=== PATIENT | female | born 1995 | race Caucasian/White ===

== ENCOUNTER 2020-06-06 11:09 | Observation (INO) | payer OTHER, SELFPAY ==
[2020-06-06 11:25] VITALS: BMI 33.5
[2020-06-07] VITALS: BP 116/60; PULSE 105; RESP 18; TEMP 36.6; O2SAT 95
[2020-06-07 08:00] VITALS: BP 116/56; PULSE 91; RESP 18; TEMP 36.8; O2SAT 94
[2020-06-07] MEDS: Albuterol/Iprat 2.5/0.5MG 3 ML AMPUL.NEB INHALE ×2 (08:27→11:41)
--- NOTE | 2020-06-07 09:16 | MHC.CM.PN ---
pt lives alone in apt. she reports that she is independent in her care. she works a job and drives a car. pt has family that lives nearby and can help her if she needs it. this includes transportation at dc. pt denies the need for vna at dc. dc plan is home no svcs. cm to cont. to follow.
--- NOTE | 2020-06-07 09:22 | PM.DS ---
DS: Providers Provider Date of admission: 06/06/20 11:09 Primary care physician: Jose Smallwood MD DS: Diagnosis Discharge Diagnosis (1) Reactive airway disease: Status: Acute DS: Summary Hospital Course Hospital Course: patient was admitted for reactive airway disease. She was treated with IV Solu-Medrol for 24 hours and scheduled updrafts. Fortunately, her wheezing subsided and she will be discharged home with 5 more days of prednisone. She has been given a referral to pulmonary for formal testing. She is to take her albuterol 4 times daily. Time Spent with Patient Time attestation: Total time spent providing and/or coordinating discharge services: Physical Exam Vital Signs and I&O and Narrative: Vital Signs and I&O: Vital Signs Temp 97.9 F 06/07/20 00:00 Pulse 105 H 06/07/20 00:00 Resp 18 06/07/20 00:00 BP 116/60 06/07/20 00:00 Pulse Ox 95 06/07/20 00:00 Intake & Output 06/06/20 06/07/20 06/07/20 18:59 06:59 18:59 Weight 72.7 kg Other: Urine Bathroom Body Mass Index 33.5 Const: General: cooperative and comfortable Resp: Effort & Inspection: normal respiratory effort Auscultation: clear to auscultation bilaterally Cardio: Rate: regular rate GI: Inspection: Yes normal to inspection Palpation (GI): Soft to palpation Skin: General skin exam: no rashes or lesions noted Discharge Plan Discharge Anticipated Discharge Date/Time: 06/07/20 08:54 Patient Disposition: Home, Self-Care Referrals: Jose Smallwood MD [Primary Care Provider] - Nathan Wen MD [Physician] - 1 Month (Reactive airway disease / asthma, needs work up Call for appointment ) Discharge Medications: New prednisone 20 mg tablet 40 mg PO DAILY 5 Days Qty: 10 RF: 0 albuterol sulfate 90 mcg/actuation aerosol powdr breath activated 2 inh inhalation QID PRN (Reason: shortness of breath or wheezing) Qty: 1 RF: 0 Continued diphenhydramine HCl 50 mg Capsule 50 mg PO BEDTIME PRN (Reason: Rash) RF: 0 trazodone 50 mg Tablet 50 mg PO BEDTIME RF: 0 cetirizine [Zyrtec] 10 mg Tablet 10 mg PO DAILY RF: 0 omeprazole 20 mg Capsule,Delayed Release(Dr/Ec) 20 mg PO QAM RF: 0 bupropion HCl 150 mg Tablet Extended Release 24 Hr 150 mg PO QAM RF: 0 fluoxetine 40 mg Capsule 40 mg PO DAILY RF: 0 Discharge Orders: Discharge Order (Routine); Ordered 06/07/20 Ordered By: Shayan Cramer Diet: advance to your usual diet Activity on Discharge: As tolerated Visit Report Forms: Patient Portal Discharge page Care Plan Goals: Take prednisone and follow up with lung doctors Health Concerns: Asthma and allergy Plan of Treatment: 5 more days of prednisone and take albuterol inhaler 4 times daily
[2020-06-07] MEDS: FLUoxetine HCl 20 MG CAPSULE 40 MG PO (09:27)
[2020-06-07] MEDS: 0.9 % Sodium Chloride Flush 3 ML SYRINGE 2 ML IVFLUSH ×2 (09:28)
[2020-06-07] MEDS: buPROPion HCl XL 150 MG TAB.ER.24H PO (09:28)
[2020-06-07] MEDS: Omeprazole 20 MG CAPSULE.DR PO (09:29)
--- NOTE | 2020-06-07 09:51 | MHC.CM.PN ---
Annmarie [birth year] Female 24 DX Asthma exac Lives with Family. She is independent all functional mobility. No HCP ed provided pt declined. DP home no services Family transport.
== END 2020-06-07 11:49 | disposition home or self-care (01) ==
LOC: HO.IMC 06-07 06:02 → HO.S3 06-07 06:46 → HO.IMC 06-07 09:20
PROVIDERS: Admitting Provider Internal Medicine; PCP Internal Medicine; Visit Provider Family Medicine
DX: J45.901 Unspecified asthma with (acute) exacerbation (principal); Z79.899 Other long term (current) drug therapy
CPT/HCPCS: 36415; 71045; 80051; 82565; 82947; 84520; 85025; 94644; 94645; 96365; 96375; 99219; 99291; J2920; J2930; J3475

== ENCOUNTER 2020-12-29 23:36 | Emergency (ER) | payer OTHER, SELFPAY ==
--- NOTE | ~2020-12-29 | US_ITS ---
EXAMINATION: US OBSTETRICAL ULTRASOUND CLINICAL INFORMATION: Confirm intrauterine . Nausea, vomiting, abdominal pain. COMPARISON: None. LMP: 10/26/2020. Gestational age by maternal dates is 9 weeks 2 days. Estimated date of delivery by maternal dates is 08/02/2021. TECHNIQUE: Transabdominal sonographic evaluation of the pelvis. FINDINGS: There is a single intrauterine gestational sac with visible yolk sac, embryo/fetus, and cardiac activity. There is a small subchorionic hemorrhage measuring 0.5 cm. HR: 174 beats per minute. CRL (crown rump length): 1.76 cm (8 weeks 2 days +/- 4 days). CELINE (estimated date of delivery): 08/09/2021 +/- 4 days. MATERNAL ADNEXA: The right maternal ovary is not seen. The left maternal ovary measures 2.4 x 1.7 x 2.4 cm. There is no significant maternal adnexal mass. No maternal pelvic ascites. US/US OB <= 14 weeks fetus IMPRESSION: 1. Single intrauterine gestation with ultrasound gestational age of 8 weeks 2 days +/- 4 days. 2. Estimated date of delivery is 08/09/2021 +/- 4 days. 3. There is likely a tiny subchorionic hemorrhage.
[2020-12-29 23:41] VITALS: BP 110/72; PULSE 98; RESP 16; TEMP 37.2; O2SAT 97; BMI 32.3
[2020-12-30] VITALS: BP 103/63; PULSE 78; RESP 18; O2SAT 97
[2020-12-30] MEDS: ondansetron HCL 4 MG/2 ML VIAL IVPUSH ×2 (00:16→04:52)
[2020-12-30] MEDS: 0.9 % Sodium Chloride 1,000 ML 999 ML IV ×2 (00:17→01:33)
[2020-12-30 00:18] LABS: MANUAL DIFF FLAG NO
[2020-12-30 00:20] LABS: Basophils Percent Auto 0.2 % (0-2); Eosinophils Absolute Auto 0.1 X10*3/uL (0.0-0.4); Eosinophils Percent Auto 0.3 % (0-4); Hematocrit 42.2 % (37-47); Hemoglobin 14.3 g/dl (12.0-16.0); Imm Gran Abs Auto 0.05 X10*3/uL (0.00-0.03); Imm Gran Pct Auto 0.3 % (0.0-0.4); Lymphocytes Absolute Auto 1.5 X10*3/uL (1.2-4.9); Lymphocytes Percent Auto 9.9 % (20-40); Mean Corpuscular HGB Conc 33.9 g/dl (31.0-35.0); Mean Corpuscular Hemoglobin 29.7 pg (27.0-33.0); Mean Corpuscular Volume 87.7 fL (80-98); Mean Platelet Volume 9.7 fL (9.4-12.3); Monocytes Absolute Auto 0.8 X10*3/uL (0.1-1.2); Monocytes Percent Auto 5.3 % (2-11); Platelet Count 329 X10*3/uL (160-400); Red Blood Count 4.81 X10*6/uL (4.20-5.50); Red Cell Distribution Width 12.4 % (11.0-16.0); White Blood Count 15.5 X10*3/uL (4.8-10.8)
--- NOTE | 2020-12-30 00:23 | ED.NAVMDI ---
HPI - Nausea/Vomiting/Diarrhea General Chief complaint: Nausea/Vomiting/Diarrhea Stated complaint: Vomiting/9 weeks Time Seen by Provider: 12/29/20 23:52 Source: patient Mode of arrival: ambulatory History of Present Illness HPI Narrative: 25-year-old female presents at 9 weeks gestation with no prior ultrasounds of this due date is 08/02/2021 and reports nausea and vomiting for 1 week for which she has been prescribed Zofran but has been a.m. unable to tolerate for the past 24-48 hours. Patient is now describing significant burning and cramping in the epigastrium and although she reports presence of blood in the vomitus (this was inspected at the time of the interview and there was no blood present). Otherwise, patient denies fevers, chills, vaginal bleeding or discharge and reports that she is having urinary frequency and she has had couple of episodes of diarrhea that have since resolved. Patient reports a longstanding history of nausea and vomiting and had similar difficulty during her 1st . Related Data Home Medications Medication Instructions Recorded Confirmed bupropion HCl 150 mg PO QAM 06/06/20 06/06/20 cetirizine [Zyrtec] 10 mg PO DAILY 06/06/20 06/06/20 diphenhydramine HCl 50 mg PO BEDTIME PRN 06/06/20 06/06/20 fluoxetine 40 mg PO DAILY 06/06/20 06/06/20 omeprazole 20 mg PO QAM 06/06/20 06/06/20 trazodone 50 mg PO BEDTIME 06/06/20 06/06/20 Previous Rx's Medication Instructions Recorded albuterol sulfate 2 inh INHALATION QID PRN #1 units 06/07/20 prednisone 40 mg PO DAILY 5 Days #10 tab 06/07/20 nitrofurantoin monohyd/m-cryst 100 mg PO Q12H 5 Days #10 cap 12/30/20 [Macrobid] Allergies Allergy/AdvReac Type Severity Reaction Status Date / Time No Known Allergies Allergy Verified 12/29/20 23:47 [No Known Allergies*] Review of Systems Review of Systems: Pertinent positives and negatives as stated in HPI 10 point review of systems is otherwise negative. PMFSH Past Medical History Source: nursing notes reviewed Medical History Asthma GERD (gastroesophageal reflux disease) Social History Social History Alcohol intake: never Smoking Status: Current every day smoker Smoked in Last 30 Days: Yes Use of substances other than those prescribed or required for medical reasons: Yes Substance Use Type: Marijuana Substance Use Frequency: Daily Last Used Substance: Just Prior to Admission Any prior treatment program specific to substance use: No Advance Directives: No service: No Current occupational status: employed Physical Exam Vital Signs: Vital Signs: Last Vital Signs Temp 98.9 F 12/29/20 23:41 Pulse 78 12/30/20 00:00 Resp 18 12/30/20 00:00 BP 103/63 12/30/20 00:00 Pulse Ox 97 12/30/20 00:00 Body Mass Index 32.3 VITAL SIGNS: Reviewed. GENERAL: Well developed, well nourished, in no acute distress. HEAD: Normocephalic/atraumatic, EYES: PERRLA, EOMI NOSE: Nares patent bilateral OROPHARYNX: no oral lesions noted, posterior pharynx clear NECK: Supple, no adenopathy LUNGS: Normal breath sounds. No adventitious sounds or accessory muscle use. SpO2<97> CARDIOVASCULAR: Regular rate and rhythm without noted murmurs ABDOMEN: Soft, tenderness without rebound in epigastrium, non-distended with bowel sounds. NEUROLOGIC: Alert and oriented x 4. Course Course Course Narrative: 25-year-old female with history and clinical presentation consistent with significant hyperemesis leading to increased exacerbation of underlying GERD and suspect abdominal discomfort secondary to repeated episodes of nausea and vomiting. Lower suspicion for intra-abdominal pathology, will confirm IUP and rule out UTI. On review of all investigations presentation is most consistent with cyclical vomiting secondary to cannabis as well as a likely contribution from . Patient was counseled regarding the combination in terms of exacerbating her nausea and vomiting during . She is discharged in stable condition tolerating oral intake and has instructions to follow-up with her exceptional children teacher assistant in the next 2-3 days for re-evaluation and further outpatient management. US IMPRESSION: 1. Single intrauterine gestation with ultrasound gestational age of 8 weeks 2 days +/- 4 days. 2. Estimated date of delivery is 08/09/2021 +/- 4 days. 3. There is likely a tiny subchorionic hemorrhage. MDM - Nausea/Vomiting/Diarrhea Lab Data Result diagrams: 12/30/20 00:15 12/30/20 00:15 Labs: Lab Results 12/30/20 12/30/20 12/30/20 Range/Units 00:15 00:15 00:49 WBC 15.5 H (4.8-10.8) X10*3/uL RBC 4.81 (4.20-5.50) X10*6/uL Hgb 14.3 (12.0-16.0) g/dl Hct 42.2 (37-47) % MCV 87.7 (80-98) fL MCH 29.7 (27.0-33.0) pg MCHC 33.9 (31.0-35.0) g/dl RDW 12.4 (11.0-16.0) % Plt Count 329 (160-400) X10*3/uL MPV 9.7 (9.4-12.3) fL Immature Gran % (Auto) 0.3 (0.0-0.4) % Neut % (Auto) 84.0 H (45-73) % Lymph % (Auto) 9.9 L (20-40) % [place] % (Auto) 5.3 (2-11) % Eos % (Auto) 0.3 (0-4) % Baso % (Auto) 0.2 (0-2) % Lymph # (Auto) 1.5 (1.2-4.9) X10*3/uL [place] # (Auto) 0.8 (0.1-1.2) X10*3/uL Eos # (Auto) 0.1 (0.0-0.4) X10*3/uL Baso # (Auto) 0.0 (0.0-0.2) X10*3/uL Abs Immat Gran (auto) 0.05 H (0.00-0.03) X10*3/uL Absolute Neuts (auto) 13.0 H (2.0-8.3) X10*3/uL Absolute Nucleated RBC 0.000 (0.0-0.012) X10*3/uL Nucleated RBC % (auto) 0.0 (0.0-0.2) /100WBC Sodium 139 (135-145) mmol/L Potassium 3.6 (3.3-5.1) mmol/L Chloride 100 (96-108) mmol/L Carbon Dioxide 21 L (22-29) mmol/L Anion Gap 22 H (12-20) BUN 13 (9-16) mg/dL Creatinine 0.76 (0.5-1.4) mg/dL Estim Creat Clear Calc 98.1 Estimated GFR > 60 Random Glucose 85 (60-115) mg/dL Calcium 10.3 H (8.4-10.2) mg/dL Total Bilirubin 0.6 (0.0-1.0) mg/dL AST 18 (5-31) U/L ALT 17 (0-31) U/L Alkaline Phosphatase 59 (39-117) U/L Total Protein 7.6 (6.5-8.0) g/dL Albumin 4.8 (3.5-5.0) g/dL Beta HCG, Quant 54165 mIU/mL Urine Color DARK YELLOW Urine Appearance CLEAR Urine pH 5.5 (5.0-8.0) Ur Specific [place] >= 1.030 H (1.005-1.025) Urine Protein TRACE (NEG-TRACE) MG/DL Urine Glucose (UA) NEG (NEG) MG/DL Urine Ketones >=80 (NEG) MG/DL Urine Blood NEG (NEG) Urine Nitrite POS H (NEG) Ur Leukocyte Esterase NEG (NEG) Urine RBC 0-2 (0) /HPF Urine WBC 0-2 (0-4) /HPF Ur Squamous Epith Cells 2+ /LPF Urine Bacteria 1+ /LPF Hyaline Casts 0-2 /LPF Urine Mucus 2+ /LPF Urine Opiates Screen (Not Detect) Ur Barbiturates Screen (Not Detect) Ur Phencyclidine Scrn (Not Detect) Ur Amphetamines Screen (Not Detect) U Benzodiazepines Scrn (Not Detect) Urine Cocaine Screen (Not Detect) U Marijuana (THC) Screen (Not Detect) 12/30/20 Range/Units 00:49 WBC (4.8-10.8) X10*3/uL RBC (4.20-5.50) X10*6/uL Hgb (12.0-16.0) g/dl Hct (37-47) % MCV (80-98) fL MCH (27.0-33.0) pg MCHC (31.0-35.0) g/dl RDW (11.0-16.0) % Plt Count (160-400) X10*3/uL MPV (9.4-12.3) fL Immature Gran % (Auto) (0.0-0.4) % Neut % (Auto) (45-73) % Lymph % (Auto) (20-40) % [place] % (Auto) (2-11) % Eos % (Auto) (0-4) % Baso % (Auto) (0-2) % Lymph # (Auto) (1.2-4.9) X10*3/uL [place] # (Auto) (0.1-1.2) X10*3/uL Eos # (Auto) (0.0-0.4) X10*3/uL Baso # (Auto) (0.0-0.2) X10*3/uL Abs Immat Gran (auto) (0.00-0.03) X10*3/uL Absolute Neuts (auto) (2.0-8.3) X10*3/uL Absolute Nucleated RBC (0.0-0.012) X10*3/uL Nucleated RBC % (auto) (0.0-0.2) /100WBC Sodium (135-145) mmol/L Potassium (3.3-5.1) mmol/L Chloride (96-108) mmol/L Carbon Dioxide (22-29) mmol/L Anion Gap (12-20) BUN (9-16) mg/dL Creatinine (0.5-1.4) mg/dL Estim Creat Clear Calc Estimated GFR Random Glucose (60-115) mg/dL Calcium (8.4-10.2) mg/dL Total Bilirubin (0.0-1.0) mg/dL AST (5-31) U/L ALT (0-31) U/L Alkaline Phosphatase (39-117) U/L Total Protein (6.5-8.0) g/dL Albumin (3.5-5.0) g/dL Beta HCG, Quant mIU/mL Urine Color Urine Appearance Urine pH (5.0-8.0) Ur Specific [place] (1.005-1.025) Urine Protein (NEG-TRACE) MG/DL Urine Glucose (UA) (NEG) MG/DL Urine Ketones (NEG) MG/DL Urine Blood (NEG) Urine Nitrite (NEG) Ur Leukocyte Esterase (NEG) Urine RBC (0) /HPF Urine WBC (0-4) /HPF Ur Squamous Epith Cells /LPF Urine Bacteria /LPF Hyaline Casts /LPF Urine Mucus /LPF Urine Opiates Screen Not Detected (Not Detect) Ur Barbiturates Screen Not Detected (Not Detect) Ur Phencyclidine Scrn Not Detected (Not Detect) Ur Amphetamines Screen Not Detected (Not Detect) U Benzodiazepines Scrn POSITIVE H (Not Detect) Urine Cocaine Screen Not Detected (Not Detect) U Marijuana (THC) Screen POSITIVE H (Not Detect) Discharge Plan Discharge Clinical Impression: Cyclical vomiting, Vomiting affecting , Acute UTI Patient Disposition: Home, Self-Care Instructions: (ED), Urinary Tract Infection in (ED), Cyclic Vomiting Syndrome (ED) Additional Instructions: 1. Resume all home medications as prescribed, to include your prescription for Zofran. 2. Follow-up with your exceptional children teacher assistant in the next 2-3 days for re-evaluation. Return to the emergency department for acute worsening of symptoms. Prescriptions: New nitrofurantoin monohyd/m-cryst [Macrobid] 100 mg capsule 100 mg PO Q12H 5 Days Qty: 10 RF: 0 No Action diphenhydramine HCl 50 mg Capsule 50 mg PO BEDTIME PRN (Reason: Rash) RF: 0 trazodone 50 mg Tablet 50 mg PO BEDTIME RF: 0 cetirizine [Zyrtec] 10 mg Tablet 10 mg PO DAILY RF: 0 omeprazole 20 mg Capsule,Delayed Release(Dr/Ec) 20 mg PO QAM RF: 0 bupropion HCl 150 mg Tablet Extended Release 24 Hr 150 mg PO QAM RF: 0 fluoxetine 40 mg Capsule 40 mg PO DAILY RF: 0 prednisone 20 mg tablet 40 mg PO DAILY 5 Days Qty: 10 RF: 0 albuterol sulfate 90 mcg/actuation aerosol powdr breath activated 2 inh inhalation QID PRN (Reason: shortness of breath or wheezing) Qty: 1 RF: 0 Referrals: Deidre Moses [employer]INA [employer] D[employer] MANAGER [Primary Care Provider] - 2 days
[2020-12-30 00:56] LABS: Alanine Aminotransferase 17 U/L (0-31); Albumin Level 4.8 g/dL (3.5-5.0); Alkaline Phosphatase 59 U/L (39-117); Anion Gap 22 (12-20); Aspartate Amino Transferase 18 U/L (5-31); Bilirubin Total 0.6 mg/dL (0.0-1.0); Blood Urea Nitrogen 13 mg/dL (9-16); Calcium 10.3 mg/dL (8.4-10.2); Carbon Dioxide 21 mmol/L (22-29); Chloride 100 mmol/L (96-108); Creatinine Clr Calc Pharmacy 98.1; Estimated Glomerular Filt Rate > 60; Glucose Random 85 mg/dL (60-115); Potassium 3.6 mmol/L (3.3-5.1); Sodium 139 mmol/L (135-145); Total Protein 7.6 g/dL (6.5-8.0)
[2020-12-30 00:58] LABS: Glucose Urine UA NEG (NEG); Leukocyte Esterase Urine NEG (NEG); Nitrite Urine POS (NEG); PH 5.5 (5.0-8.0); Specific Gravity - Urine >= 1.030 (1.005-1.025); UACC Culture Trigger YES; Urine Blood NEG (NEG); Urine Ketones >=80 MG/DL (NEG); Urine Protein TRACE MG/DL (NEG-TRACE)
--- NOTE | 2020-12-30 00:59 | PC.NURSE ---
Pt self inducing vomiting enroute to us.
[2020-12-30 01:00] LABS: Appearance Urine CLEAR; Color Urine DARK YELLOW
[2020-12-30 01:15] LABS: Bacteria Urine 1+ /LPF; Hyaline Casts Urine 0-2 /LPF; Mucus Urine 2+ /LPF; RBC Urine 0-2 /HPF (0); Squamous Epithelial Cell Urine 2+ /LPF; WBC Urine 0-2 /HPF (0-4)
[2020-12-30 01:17] LABS: Amphetamine Screen Urine Not Detected (Not Detect); Barbiturates, Urine Not Detected (Not Detect); Benzodiazepines Screen Urine POSITIVE (Not Detect); Cannabinoid Screen Urine POSITIVE (Not Detect); Cocaine Screen Urine Not Detected (Not Detect); Opiate Screen Urine Not Detected (Not Detect); Phencyclidine Screen Urine Not Detected (Not Detect)
[2020-12-30] MEDS: diphenhydrAMINE HCL 50 MG/ML VIAL 25 MG IVPUSH (01:23)
[2020-12-30] MEDS: Metoclopramide HCl 10 MG/2 ML VIAL IVPUSH (01:24)
[2020-12-30] MEDS: cefTRIAXone sodium 1 GM in 0.9 % Sodium Chloride 50 ML IV (01:38)
--- NOTE | 2020-12-30 01:39 | PC.NURSE ---
PT EDUCATED TO NOT USE MARIJUANA AND BENZOS WHILE PREGANT. PT MEDICATED AND MONTIORING FOR EFFECT.
== END 2020-12-30 05:08 | disposition home or self-care (01) ==
PROVIDERS: Emergency Provider Student in an Organized Health Care Education/Training Program; PCP Nurse Practitioner Family
DX: O21.8 Other vomiting complicating pregnancy (principal); O99.331 Smoking (tobacco) complicating pregnancy, first trimester; Z3A.09 9 weeks gestation of pregnancy; Z71.6 Tobacco abuse counseling; Z79.899 Other long term (current) drug therapy
CPT/HCPCS: 36415; 76801; 80053; 80307; 81001; 81003; 84702; 85025; 87086; 96365; 96375; 99285; J0696; J1200; J2405; J2765

== ENCOUNTER 2021-05-03 16:46 | Emergency (ER) | payer OTHER, SELFPAY ==
[2021-05-03 17:00] VITALS: BP 104/79; PULSE 83; RESP 18; TEMP 37; O2SAT 98; BMI 30.9
[2021-05-03 19:01] LABS: Hematocrit 35.5 % (37-47); Mean Corpuscular HGB Conc 33.8 g/dl (31.0-35.0); Mean Corpuscular Hemoglobin 30.5 pg (27.0-33.0); Mean Corpuscular Volume 90.3 fL (80-98); Platelet Count 227 X10*3/uL (160-400); Red Blood Count 3.93 X10*6/uL (4.20-5.50); Red Cell Distribution Width 12.7 % (11.0-16.0); White Blood Count 12.9 X10*3/uL (4.8-10.8)
[2021-05-03 19:02] LABS: Glucose Urine UA NEG (NEG); Leukocyte Esterase Urine 1+ (NEG); Nitrite Urine NEG (NEG); Urine Blood NEG (NEG); Urine Ketones NEG (NEG); Urine Protein TRACE MG/DL (NEG-TRACE)
[2021-05-03 19:03] LABS: Appearance Urine CLOUDY; Color Urine YELLOW
[2021-05-03 19:11] LABS: Amorphous Sediment Urine 2+ /LPF; Bacteria Urine 1+ /LPF; Mucus Urine 2+ /LPF; RBC Urine 0 /HPF (0); Squamous Epithelial Cell Urine 3+ /LPF
[2021-05-03 19:18] LABS: COVID-19 Test Negative (Negative)
[2021-05-03 19:21] LABS: Amphetamine Screen Urine Not Detected (Not Detect); Barbiturates, Urine Not Detected (Not Detect); Benzodiazepines Screen Urine Not Detected (Not Detect); Cannabinoid Screen Urine POSITIVE (Not Detect); Cocaine Screen Urine Not Detected (Not Detect); Fentanyl, urine POSITIVE (Not Detect); Opiate Screen Urine Not Detected (Not Detect); Phencyclidine Screen Urine Not Detected (Not Detect)
[2021-05-03 19:33] LABS: Anion Gap 12 (12-20); Blood Urea Nitrogen 5 mg/dL (9-16); Carbon Dioxide 25 mmol/L (22-29); Chloride 107 mmol/L (96-108); Creatinine Clr Calc Pharmacy 112.5; Estimated Glomerular Filt Rate > 60; Glucose Random 85 mg/dL (60-115); Potassium 4.5 mmol/L (3.3-5.1); Sodium 139 mmol/L (135-145)
--- NOTE | 2021-05-03 20:51 | ED.PSYCH ---
HPI - Psych General Chief Complaint: Psychiatric Symptoms Stated Complaint: crisis Time Seen by Provider: 05/03/21 17:27 Source: patient Mode of arrival: ambulatory Limitations: no limitations History of Present Illness HPI Narrative: Patient was emergency room complaining of that and depression. Patient is not 27 weeks of gestational age. 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 Patient states that initially she was depressed, had some SI vague thoughts, no plan, states she would never hurt herself. Requesting to be seen by [facility] Related Data Home Medications Medication Instructions Recorded Confirmed bupropion HCl 150 mg 24 hr tablet, 150 mg PO QAM 06/06/20 06/06/20 extended release cetirizine 10 mg tablet (Zyrtec) 10 mg PO DAILY 06/06/20 06/06/20 diphenhydramine HCl 50 mg capsule 50 mg PO BEDTIME PRN 06/06/20 06/06/20 fluoxetine 40 mg capsule 40 mg PO DAILY 06/06/20 06/06/20 omeprazole 20 mg capsule,delayed 20 mg PO QAM 06/06/20 06/06/20 release trazodone 50 mg tablet 50 mg PO BEDTIME 06/06/20 06/06/20 Previous Rx's Medication Instructions Recorded albuterol sulfate 90 mcg/actuation 2 inh INHALATION QID PRN #1 units 06/07/20 breath activated powder inhaler prednisone 20 mg tablet 40 mg PO DAILY 5 Days #10 tab 06/07/20 nitrofurantoin 100 mg PO Q12H 5 Days #10 cap 12/30/20 monohydrate/macrocrystals 100 mg capsule (Macrobid) Allergies Allergy/AdvReac Type Severity Reaction Status Date / Time No Known Allergies Allergy Verified 05/03/21 17:00 [No Known Allergies*] Review of Systems Review of Systems: Constitutional : No Weight loss, No Fever, No Chills, No Night Sweats, No Fatigue, No Malaise ENT/Mouth : No Hearing loss, No Ear Pain, No Nasal Congestion, No Sinus Pain, No Hoarseness, No sore throat, No Rhinorrhea, No Swallowing Difficulty Eyes: No Eye Pain, No Swelling, No Redness, No Foreign Body, No Discharge, No Vision Changes Cardiovascular : No Chest Pain, No SOB, No Dyspnea on Exertion, No Orthopnea, No Edema, No Palpitations Respiratory : No Cough, No Sputum, No Wheezing, No Smoke Exposure, No Dyspnea Gastrointestinal : No Nausea, No Vomiting, No Diarrhea, No Constipation, No abdominal Pain, No Hematochezia, No Melena Genitourinary : no irregular bleeding, No Dysuria, No Urinary Frequency, No Hematuria, No Urinary Incontinence, No Urgency, No Flank Pain, No Urinary Flow Changes, No Hesitancy Musculoskeletal : No joint pain, No Myalgias, No Joint Swelling Skin : No Skin Lesions, No rash Neuro : No Weakness, No Numbness, No Paresthesias, No Loss of Consciousness, No Dizziness, No Headache Psych : complaining of anxiety and depression No SI/HI/AH/VH, No Social Issues, Heme/Lymph: No Bruising, No Bleeding,No Lymphadenopathy Endocrine : No Polyuria, No Polydipsia, No Temperature Intolerance PMFSH Past Medical History Medical History Asthma GERD (gastroesophageal reflux disease) Social History Social History Alcohol intake: never Patient Tobacco Use Status: Never used Tobacco Use of substances other than those prescribed or required for medical reasons: Yes Substance Use Type: Heroin Substance Use Frequency: Occasionally Last Used Substance: Days (ago) Any prior treatment program specific to substance use: No Advance Directives: No Advance Directives Information Provided: No Patient : Yes service: No Current occupational status: employed Physical Exam Vital Signs: Vital Signs: Last Vital Signs Temp 98.6 F 05/03/21 17:00 Pulse 83 05/03/21 17:00 Resp 18 05/03/21 17:00 BP 104/79 05/03/21 17:00 Pulse Ox 98 05/03/21 17:00 Body Mass Index 30.9 Const: Other: Appearance: Alert. Oriented X3. No acute distress. Eyes: Pupils equal, round and reactive to light. ENT: Pharynx normal. Neck: Normal inspection. Neck supple. No lymph nodes noted. No crepitus CVS: Normal heart rate and rhythm. Pulses normal. Normal S1 and S2 Respiratory: No respiratory distress. Breath sounds normal. No Wheezing. No rales Abdomen: Soft and nontender. No rigidity. No distention. Gravid uterus Skin: Skin warm and dry. Normal skin color. Normal skin turgor. Extremities: No lower extremity edema. No lower extremity edema. No Lacerations. No Rash Neuro: Oriented X 3. No motor deficit. No sensory deficit. Moving all extermities. No slurred speech. Course Course Course Narrative: Patient's mother at bedside, the patient states that she would like to be discharged home, she has an appointment with her therapist planning on Thursday. I also spoke with the patient's mother with the patient's permission, they agree that they will stay to get her this weekend, the patient states she is not suicidal or homicidal, the patient's mother feels comfortable taking her home until she is seen on Thursday by her therapist. I tried to encourage him to stay for behavioral health at work consult, aT this time, there is no reason to Section 12 the patient, patient will be discharged home. MDM - Psych Lab Data Result diagrams: 05/03/21 18:49 05/03/21 18:49 Labs: Lab Results 05/03/21 05/03/21 05/03/21 Range/Units 18:49 18:49 18:49 WBC 12.9 H (4.8-10.8) X10*3/uL RBC 3.93 L (4.20-5.50) X10*6/uL Hgb 12.0 (12.0-16.0) g/dl Hct 35.5 L (37-47) % MCV 90.3 (80-98) fL MCH 30.5 (27.0-33.0) pg MCHC 33.8 (31.0-35.0) g/dl RDW 12.7 (11.0-16.0) % Plt Count 227 D (160-400) X10*3/uL MPV 9.0 L (9.4-12.3) fL Absolute Nucleated RBC 0.000 (0.0-0.012) X10*3/uL Nucleated RBC % (auto) 0.0 (0.0-0.2) /100WBC Sodium 139 (135-145) mmol/L Potassium 4.5 D (3.3-5.1) mmol/L Chloride 107 (96-108) mmol/L Carbon Dioxide 25 (22-29) mmol/L Anion Gap 12 (12-20) BUN 5 L D (9-16) mg/dL Creatinine 0.62 (0.5-1.4) mg/dL Estim Creat Clear Calc 112.5 Estimated GFR > 60 Random Glucose 85 (60-115) mg/dL Calcium 9.0 D (8.4-10.2) mg/dL Urine Color Urine Appearance Urine pH (5.0-8.0) Ur Specific [place] (1.005-1.025) Urine Protein (NEG-TRACE) MG/DL Urine Glucose (UA) (NEG) MG/DL Urine Ketones (NEG) MG/DL Urine Blood (NEG) Urine Nitrite (NEG) Ur Leukocyte Esterase (NEG) Urine RBC (0) /HPF Urine WBC (0-4) /HPF Ur Squamous Epith Cells /LPF Amorphous Sediment /LPF Urine Bacteria /LPF Urine Mucus /LPF Urine Opiates Screen (Not Detect) Urine Fentanyl Screen (Not Detect) Ur Barbiturates Screen (Not Detect) Ur Phencyclidine Scrn (Not Detect) Ur Amphetamines Screen (Not Detect) U Benzodiazepines Scrn (Not Detect) Urine Cocaine Screen (Not Detect) U Marijuana (THC) Screen (Not Detect) COVID-19 ([facility]Y) Negative (Negative) COVID-19 Clin Com See Note 05/03/21 05/03/21 Range/Units 18:52 18:52 WBC (4.8-10.8) X10*3/uL RBC (4.20-5.50) X10*6/uL Hgb (12.0-16.0) g/dl Hct (37-47) % MCV (80-98) fL MCH (27.0-33.0) pg MCHC (31.0-35.0) g/dl RDW (11.0-16.0) % Plt Count (160-400) X10*3/uL MPV (9.4-12.3) fL Absolute Nucleated RBC (0.0-0.012) X10*3/uL Nucleated RBC % (auto) (0.0-0.2) /100WBC Sodium (135-145) mmol/L Potassium (3.3-5.1) mmol/L Chloride (96-108) mmol/L Carbon Dioxide (22-29) mmol/L Anion Gap (12-20) BUN (9-16) mg/dL Creatinine (0.5-1.4) mg/dL Estim Creat Clear Calc Estimated GFR Random Glucose (60-115) mg/dL Calcium (8.4-10.2) mg/dL Urine Color YELLOW Urine Appearance CLOUDY Urine pH 8.0 (5.0-8.0) Ur Specific [place] 1.010 (1.005-1.025) Urine Protein TRACE (NEG-TRACE) MG/DL Urine Glucose (UA) NEG (NEG) MG/DL Urine Ketones NEG (NEG) MG/DL Urine Blood NEG (NEG) Urine Nitrite NEG (NEG) Ur Leukocyte Esterase 1+ H (NEG) Urine RBC 0 (0) /HPF Urine WBC 1-4 (0-4) /HPF Ur Squamous Epith Cells 3+ /LPF Amorphous Sediment 2+ /LPF Urine Bacteria 1+ /LPF Urine Mucus 2+ /LPF Urine Opiates Screen Not Detected (Not Detect) Urine Fentanyl Screen POSITIVE H (Not Detect) Ur Barbiturates Screen Not Detected (Not Detect) Ur Phencyclidine Scrn Not Detected (Not Detect) Ur Amphetamines Screen Not Detected (Not Detect) U Benzodiazepines Scrn Not Detected (Not Detect) Urine Cocaine Screen Not Detected (Not Detect) U Marijuana (THC) Screen POSITIVE H (Not Detect) COVID-19 (SHERRY) (Negative) COVID-19 Clin Com Discharge Plan Discharge Clinical Impression: Depression, Acute anxiety, Substance abuse Patient Disposition: Home, Self-Care Instructions: Depression (ED), Polysubstance Abuse (ED) Additional Instructions: Please follow-up with your primary care physician tomorrow. If you have any worsening or new symptoms, please return to the emergency room or call 911 Prescriptions: No Action nitrofurantoin monohyd/m-cryst [Macrobid] 100 mg capsule 100 mg PO Q12H 5 Days Qty: 10 RF: 0 diphenhydramine HCl 50 mg Capsule 50 mg PO BEDTIME PRN (Reason: Rash) RF: 0 trazodone 50 mg Tablet 50 mg PO BEDTIME RF: 0 cetirizine [Zyrtec] 10 mg Tablet 10 mg PO DAILY RF: 0 omeprazole 20 mg Capsule,Delayed Release(Dr/Ec) 20 mg PO QAM RF: 0 bupropion HCl 150 mg Tablet Extended Release 24 Hr 150 mg PO QAM RF: 0 fluoxetine 40 mg Capsule 40 mg PO DAILY RF: 0 prednisone 20 mg tablet 40 mg PO DAILY 5 Days Qty: 10 RF: 0 albuterol sulfate 90 mcg/actuation aerosol powdr breath activated 2 inh inhalation QID PRN (Reason: shortness of breath or wheezing) Qty: 1 RF: 0
== END 2021-05-03 21:11 | disposition home or self-care (01) ==
PROVIDERS: Emergency Provider Emergency Medicine; PCP Nurse Practitioner Family
DX: O99.342 Other mental disorders complicating pregnancy, second trimester (principal); F32.9 Major depressive disorder, single episode, unspecified; F41.8 Other specified anxiety disorders; O99.322 Drug use complicating pregnancy, second trimester; F19.10 Other psychoactive substance abuse, uncomplicated; Z3A.27 27 weeks gestation of pregnancy; Z20.822 Contact with and (suspected) exposure to COVID-19; Z79.899 Other long term (current) drug therapy
CPT/HCPCS: 36415; 80048; 80307; 81001; 81003; 85027; 87635; 99284

== ENCOUNTER 2021-12-06 15:56 | Inpatient (IN) | payer MEDICAID, OTHER, SELFPAY ==
[2021-12-06] VITALS (11 sets, daily range): BP systolic 115–149; BP diastolic 65–101; PULSE 110–138; RESP 16–132; TEMP 36.8; O2SAT 94–99; BMI 23.6
--- NOTE | ~2021-12-06 | XR_ITS ---
EXAMINATION: XR CHEST CLINICAL INFORMATION: Shortness of breath COMPARISON: 06/06/2020 TECHNIQUE: Frontal portable view of the chest was obtained. 4:38 PM FINDINGS: No significant abnormality is noted involving the heart, lungs, mediastinum, bony thorax or soft tissues. XR/XR chest 1V IMPRESSION: Unremarkable examination.
--- NOTE | ~2021-12-06 | CT_ITS ---
EXAMINATION: CT ANGIOGRAM OF THE CHEST WITH AND WITHOUT CONTRAST (CT PULMONARY ANGIOGRAM FOR PE) CLINICAL INFORMATION: Elevated D-dimer, SOB, rule out PE COMPARISON: Chest x-ray earlier the same day TECHNIQUE: Prior to contrast administration, noncontrast localization images were obtained. Subsequently, multidetector volumetric imaging was performed from the thoracic inlet to below the diaphragms following the administration of 57 mL Omnipaque 350 intravenous contrast. No contrast reaction reported Sagittal, coronal, and MIP oblique sagittal reformatted images were obtained on the CT workstation, uploaded to PACS, and reviewed. This CT examination was performed using dose optimization techniques as appropriate, variously including the following: *Automated exposure control *Adjustment of mA and/or kV according to patient size (this includes techniques or standardized protocols for targeted exams where dose is matched to indication/reason for exam; i.e. extremities or head) *Use of iterative reconstruction technique Total exam dose-length product 276 mGy-cm FINDINGS: QUALITY OF STUDY/CONTRAST BOLUS: Suboptimal. PULMONARY ARTERIES: There is motion artifact and contrast under filling but no central pulmonary embolus seen. THORACIC AORTA: No aneurysm or dissection. LUNG: Patchy areas of groundglass opacity are seen in the right greater than left upper lobes PLEURA: No pleural effusion or pneumothorax. MEDIASTINUM: Normal heart size. No pericardial effusion. No hilar or mediastinal lymphadenopathy. No evidence of septal bowing or right heart strain. CHEST WALL/AXILLA: No axillary or internal mammary lymphadenopathy. OSSEOUS STRUCTURES: No acute or suspicious osseous abnormality. UPPER ABDOMEN: No adrenal mass. No reflux of contrast into the hepatic veins to suggest elevated right heart pressures. CT/CT angio chest PE protocol IMPRESSION: Limited study but no central pulmonary embolus seen. Patchy areas of groundglass opacity seen in the right greater than left upper lobes. Viral COVID pneumonitis can give this appearance. VTE: negative
--- NOTE | 2021-12-06 16:03 | ED_ITS ---
HPI - Altered Mental Status General Chief Complaint: Upper Respiratory Symptoms <Rojas Valiente MD - Last Filed: 12/09/21 07:00> Stated Complaint: Unreponsive <Rojas Valiente MD - Last Filed: 12/09/21 07:00> Time Seen by Provider: 12/06/21 16:01 <Rojas Valiente MD - Last Filed: 12/09/21 07:00> Source: family <Rojas Valiente MD - Last Filed: 12/09/21 07:00> Mode of arrival: other (car) <Rojas Valiente MD - Last Filed: 12/09/21 07:00> Limitations: altered mental status <Rojas Valiente MD - Last Filed: 12/09/21 07:00> History of Present Illness HPI narrative: according to this is a combination of opiate use and asthma attack, patient dragged out of the car not breathing, white <Rojas Valiente MD - Last Filed: 12/09/21 07:00> MD complaint: other (unresponsive) <Rojas Valiente MD - Last Filed: 12/09/21 07:00> Onset (ago): minute(s) <Rojas Valiente MD - Last Filed: 12/09/21 07:00> Timing confirmed by: spouse <Rojas Valiente MD - Last Filed: 12/09/21 07:00> Severity: severe <Rojas Valiente MD - Last Filed: 12/09/21 07:00> Context: drug abuse and other (asthma) <Rojas Valiente MD - Last Filed: 12/09/21 07:00> Related Data Home Medications: Home Medications Medication Instructions Recorded Confirmed cetirizine 10 mg tablet (Zyrtec) 10 mg PO DAILY 06/06/20 12/06/21 diphenhydramine HCl 50 mg capsule 50 mg PO BEDTIME PRN 06/06/20 12/06/21 omeprazole 20 mg capsule,delayed 20 mg PO BID 06/06/20 12/06/21 release trazodone 50 mg tablet 50 mg PO BEDTIME 06/06/20 12/06/21 bupropion HCl 300 mg 24 hr tablet, 1 tab PO DAILY 12/06/21 12/06/21 extended release buspirone 5 mg tablet 10 mg PO BID 12/06/21 12/06/21 lamotrigine 25 mg tablet 50 mg PO DAILY 12/06/21 12/06/21 naltrexone microspheres 380 mg 4 ml IM Q4W 12/06/21 12/06/21 intramuscular suspension,extended release (Vivitrol) norethindrone 1 mg-ethinyl 1 tab PO DAILY 12/06/21 12/06/21 estradiol 20 mcg (21)-iron 75 mg (7) tablet (Junel FE 09/26 (28)) sertraline 100 mg tablet 1 tab PO DAILY 12/06/21 12/06/21 Previous Rx's Medication Instructions Recorded albuterol sulfate 90 mcg/actuation 2 inh INHALATION QID PRN #1 units 06/07/20 breath activated powder inhaler <Rojas Valiente MD - Last Filed: 12/09/21 07:00> Allergies/Adverse Reactions: Allergies Allergy/AdvReac Type Severity Reaction Status Date / Time No Known Allergies Allergy Verified 05/03/21 17:00 [No Known Allergies*] <Rojas Valiente MD - Last Filed: 12/09/21 07:00> Review of Systems Review of Systems: Yes Unobtainable due to mental status <Rojas Valiente MD - Last Filed: 12/09/21 07:00> PMFSH Past Medical History Medical History: Medical History Asthma Asthma without acute exacerbation Bronchitis GERD (gastroesophageal reflux disease) <Rojas Valiente MD - Last Filed: 12/09/21 07:00> Social History Social History: Social History Alcohol intake: unknown Patient Tobacco Use Status: Never used Tobacco Use of substances other than those prescribed or required for medical reasons: Yes Substance Use Type: Marijuana and Other Last Used Substance: Just Prior to Admission Any prior treatment program specific to substance use: Yes Advance Directives: No Advance Directives Information Provided: No service: No Current occupational status: employed <Rojas Valiente MD - Last Filed: 12/09/21 07:00> Physical Exam ED Vital Signs: Vital Signs - 24 hr 12/06/21 16:05 12/06/21 16:27 12/06/21 16:37 Temperature Pulse Rate 138 H 131 H Respiratory Rate 132 H 26 H 23 H Blood Pressure 147/101 H 149/80 H Pulse Oximetry 99 98 12/06/21 17:03 12/06/21 18:35 12/06/21 19:03 Temperature 98.3 F Pulse Rate 126 H 119 H Respiratory Rate 27 H 22 H Blood Pressure 127/65 Pulse Oximetry 95 94 12/06/21 19:30 Temperature Pulse Rate 110 H Respiratory Rate 22 H Blood Pressure Pulse Oximetry BMI result Body Mass Index 23.6 <Rojas Valiente MD - Last Filed: 12/09/21 07:00> Vital Signs - 24 hr 12/06/21 16:05 12/06/21 16:27 12/06/21 16:37 Temperature Pulse Rate 138 H 131 H Respiratory Rate 132 H 26 H 23 H Blood Pressure 147/101 H 149/80 H Pulse Oximetry 99 98 12/06/21 17:03 12/06/21 18:35 12/06/21 19:03 Temperature 98.3 F Pulse Rate 126 H 119 H Respiratory Rate 27 H 22 H Blood Pressure 127/65 Pulse Oximetry 95 94 12/06/21 19:30 Temperature Pulse Rate 110 H Respiratory Rate 22 H Blood Pressure Pulse Oximetry BMI result Body Mass Index 23.6 <Francisco J Sheridan MD - Last Filed: 12/06/21 23:32> Const Other: no mental status, not breathing <Rojas Valiente MD - Last Filed: 12/09/21 07:00> HENMT Other: pinpoint pupils <Rojas Valiente MD - Last Filed: 12/09/21 07:00> Mouth: Normal oral and palatal mucosa present and oropharynx normal <Rojas Valiente MD - Last Filed: 12/09/21 07:00> Throat: Yes posterior oropharynx normal <Rojas Valiente MD - Last Filed: 12/09/21 07:00> Eyes Other: pinpoint <Rojas Valiente MD - Last Filed: 12/09/21 07:00> Neck Neck: Yes normal visual inspection <Rojas Valiente MD - Last Filed: 12/09/21 07:00> Chest Chest palpation & inspection: normal inspection of the chest <Rojas Valiente MD - Last Filed: 12/09/21 07:00> Resp Other: wheezing with bagging <Rojas Valiente MD - Last Filed: 12/09/21 07:00> Cardio Jugular venous distension: no JVD <Rojas Valiente MD - Last Filed: 12/09/21 07:00> Rate: regular rate <Rojas Valiente MD - Last Filed: 12/09/21 07:00> Rhythm: regular rhythm <Rojas Valiente MD - Last Filed: 12/09/21 07:00> Heart sounds: S1 normal heart sound present and S2 normal heart sound present <Rojas Valiente MD - Last Filed: 12/09/21 07:00> GI Inspection: Yes normal to inspection <Rojas Valiente MD - Last Filed: 12/09/21 07:00> Palpation (GI): Soft to palpation <Rojas Valiente MD - Last Filed: 12/09/21 07:00> Skin General skin exam: no rashes or lesions noted <Rojas Valiente MD - Last Filed: 12/09/21 07:00> Neuro Other: not moving <Rojas Valiente MD - Last Filed: 12/09/21 07:00> Extrem General: Yes normal to inspection <Rojas Valiente MD - Last Filed: 12/09/21 07:00> Psych Other: no mental status. <Rojas Valiente MD - Last Filed: 12/09/21 07:00> Course Reevaluation(s) Reevaluation #1: patient received intranasl narcan time 2, then .4mg narcan IV, then 1.6mg narcan iv, patient started to arouse but her wheezing and retractions are severe, recieved continuous nebs x 2, magnesium, epi, and solumedrol. she needs to be admitted <Rojas Valiente MD - Last Filed: 12/09/21 07:00> Time: 17:07 <Rojas Valiente MD - Last Filed: 12/09/21 07:00> Reevaluation #2: 1929: I assumed care of this patient from my colleague, Dr. Rojas Valiente at 16:30 hours. I did interview the patient and the patient's boyfriend. The patient has been short of breath for approximately 3 days. She does have a history of asthma. She has been using her nebulizer and inhaler frequently with no relief for symptoms. Prior to coming to the emergency department, her shortness of breath got worse and her boyfriend want to call an ambulance but the patient insisted that she be driven to the emergency department. The boyfriend states that when they got to the emergency department the patient loss consciousness. The patient was extricated from the car and brought immediately to resuscitation bed. Patient was given Narcan intranasally and IV with improvement of her mental status, she had a severe asthma exacerbation was treated with epinephrine, albuterol continuous nebulizer x2, DuoNeb x2, magnesium and Solu-Medrol. Laboratory evaluation: WBC was elevated 18,200. ABG on 2 L nasal cannula pH 7.34/pCO2 45/PO2 161-is reassuring, troponin was detectable but not elevated at 9.2. COVID-19, influenza and RSV were negative. Chest x-ray: No CHF for pneumonia. I did discuss the patient's presentation with the covering hospitalist, Dr. Calhoun. He requested that the patient get a D-dimer since she is on oral control and possible CTA depending on the D-dimer. The patient will be admitted to the intermediate care unit for further management of her asthma exacerbation. <Francisco J Sheridan MD - Last Filed: 12/06/21 23:32> Reevaluation #3: 20 40: The patient's D-dimer was elevated therefore I ordered a CT pulmonary angiogram PE protocol. The patient's drug screen also came back positive for fentanyl and benzodiazepines. The patient states she does take Xanax but she purchase this on the street . She denies using opiates. It is possible that the Xanax that she has been taking may have fentanyl and she was unaware of this. It is also possible she may have been using opiates. The patient does have an open DCF case and unfortunately given the fact that she responded to Narcan and she has positive fentanyl and benzodiazepine screen, we will need to report this to [facility]. She does have a chilled at home that she cares for. The spring encaser will make this report to [facility]. <Francisco J Sheridan MD - Last Filed: 12/06/21 23:32> Additional Reevaluation(s): 2326: CT pulmonary angiogram PE protocol was negative for emboli with radiologist impression as follows: l patchy areas of groundglass opacity seen in the right greater than left upper lobes. Viral COVID pneumonitis can give this appearance. I will discuss this finding with the covering hospitalist. In reviewing his orders, the patient will be started on 500 mg orally I did give her her 1st dose here in the emergency department. <Francisco J Sheridan MD - Last Filed: 12/06/21 23:32> MDM - Altered Mental Status Lab Data Result diagrams: : 12/07/21 07:45 12/07/21 07:05 <Rojas Valiente MD - Last Filed: 12/09/21 07:00> Labs: Lab Results 12/06/21 12/06/21 12/06/21 Range/Units 16:50 16:50 16:50 WBC 18.2 H (4.8-10.8) X10*3/uL RBC 4.30 (4.20-5.50) X10*6/uL Hgb 12.8 (12.0-16.0) g/dl Hct 39.1 (37.0-47.0) % MCV 90.9 (80.0-98.0) fL MCH 29.8 (27.0-33.0) pg MCHC 32.7 (31.0-35.0) g/dl RDW 13.5 (11.0-16.0) % Plt Count 325 (160-400) X10*3/uL MPV 9.1 L (9.4-12.3) fL Immature Gran % (Auto) 1.5 H (0.0-0.4) % Neut % (Auto) 62.9 (45-73) % Lymph % (Auto) 16.5 L (20-40) % [place] % (Auto) 6.0 (2-11) % Eos % (Auto) 12.6 H (0-4) % Baso % (Auto) 0.5 (0-2) % Lymph # (Auto) 3.0 (1.2-4.9) X10*3/uL [place] # (Auto) 1.1 (0.1-1.2) X10*3/uL Eos # (Auto) 2.3 H (0.0-0.4) X10*3/uL Baso # (Auto) 0.1 (0.0-0.2) X10*3/uL Abs Immat Gran (auto) 0.28 H (0.00-0.03) X10*3/uL Absolute Neuts (auto) 11.5 H (2.0-8.3) x10*3/uL Absolute Nucleated RBC 0.000 (0.0-0.012) X10*3/uL Nucleated RBC % (auto) 0.0 (0.0-0.2) /100WBC Smear Tech's Comments VERIFIED D-Dimer High Sensitivty NG/ML O2 Saturation % ABG pH at Pt Temp (7.35-7.45) ABG pCO2 at Pt Temp (32-45) mmHg ABG pO2 at Pt Temp (83-108) mmHg ABG HCO3 (22-26) mmol/L ABG Base Excess (Actual) mmol/L Sodium 142 (135-145) mmol/L Potassium 4.1 (3.3-5.1) mmol/L Chloride 108 (96-108) mmol/L Carbon Dioxide 26 (22-29) mmol/L Anion Gap 12 (12-20) BUN 6 L (9-16) mg/dL Creatinine 0.77 (0.5-1.4) mg/dL Estim Creat Clear Calc 99.6 Estimated GFR > 60 Random Glucose 147 H (60-115) mg/dL Calcium 8.5 (8.4-10.2) mg/dL Troponin I High Sens 9.2 (<3.5-17.0) ng/L Urine Test (NEGATIVE) Urine Opiates Screen (Not Detect) Urine Fentanyl Screen (Not Detect) Ur Barbiturates Screen (Not Detect) Ur Phencyclidine Scrn (Not Detect) Ur Amphetamines Screen (Not Detect) U Benzodiazepines Scrn (Not Detect) Urine Cocaine Screen (Not Detect) U Marijuana (THC) Screen (Not Detect) Influenza Type A (PCR) (Negative) Influenza Type B (PCR) (Negative) RSV RNA Qual (PCR) (Negative) SARS-CoV-2 RNA (RT-PCR) (Negative) 12/06/21 12/06/21 12/06/21 Range/Units 17:45 18:34 18:34 WBC (4.8-10.8) X10*3/uL RBC (4.20-5.50) X10*6/uL Hgb (12.0-16.0) g/dl Hct (37.0-47.0) % MCV (80.0-98.0) fL MCH (27.0-33.0) pg MCHC (31.0-35.0) g/dl RDW (11.0-16.0) % Plt Count (160-400) X10*3/uL MPV (9.4-12.3) fL Immature Gran % (Auto) (0.0-0.4) % Neut % (Auto) (45-73) % Lymph % (Auto) (20-40) % [place] % (Auto) (2-11) % Eos % (Auto) (0-4) % Baso % (Auto) (0-2) % Lymph # (Auto) (1.2-4.9) X10*3/uL [place] # (Auto) (0.1-1.2) X10*3/uL Eos # (Auto) (0.0-0.4) X10*3/uL Baso # (Auto) (0.0-0.2) X10*3/uL Abs Immat Gran (auto) (0.00-0.03) X10*3/uL Absolute Neuts (auto) (2.0-8.3) x10*3/uL Absolute Nucleated RBC (0.0-0.012) X10*3/uL Nucleated RBC % (auto) (0.0-0.2) /100WBC Smear Tech's Comments D-Dimer High Sensitivty NG/ML O2 Saturation 99.0 % ABG pH at Pt Temp 7.34 L (7.35-7.45) ABG pCO2 at Pt Temp 45 (32-45) mmHg ABG pO2 at Pt Temp 161 H (83-108) mmHg ABG HCO3 24 (22-26) mmol/L ABG Base Excess (Actual) -1.3 mmol/L Sodium (135-145) mmol/L Potassium (3.3-5.1) mmol/L Chloride (96-108) mmol/L Carbon Dioxide (22-29) mmol/L Anion Gap (12-20) BUN (9-16) mg/dL Creatinine (0.5-1.4) mg/dL Estim Creat Clear Calc Estimated GFR Random Glucose (60-115) mg/dL Calcium (8.4-10.2) mg/dL Troponin I High Sens (<3.5-17.0) ng/L Urine Test NEGATIVE (NEGATIVE) Urine Opiates Screen (Not Detect) Urine Fentanyl Screen (Not Detect) Ur Barbiturates Screen (Not Detect) Ur Phencyclidine Scrn (Not Detect) Ur Amphetamines Screen (Not Detect) U Benzodiazepines Scrn (Not Detect) Urine Cocaine Screen (Not Detect) U Marijuana (THC) Screen (Not Detect) Influenza Type A (PCR) NEGATIVE (Negative) Influenza Type B (PCR) NEGATIVE (Negative) RSV RNA Qual (PCR) NEGATIVE (Negative) SARS-CoV-2 RNA (RT-PCR) NEGATIVE (Negative) 12/06/21 12/06/21 Range/Units 18:34 19:46 WBC (4.8-10.8) X10*3/uL RBC (4.20-5.50) X10*6/uL Hgb (12.0-16.0) g/dl Hct (37.0-47.0) % MCV (80.0-98.0) fL MCH (27.0-33.0) pg MCHC (31.0-35.0) g/dl RDW (11.0-16.0) % Plt Count (160-400) X10*3/uL MPV (9.4-12.3) fL Immature Gran % (Auto) (0.0-0.4) % Neut % (Auto) (45-73) % Lymph % (Auto) (20-40) % [place] % (Auto) (2-11) % Eos % (Auto) (0-4) % Baso % (Auto) (0-2) % Lymph # (Auto) (1.2-4.9) X10*3/uL [place] # (Auto) (0.1-1.2) X10*3/uL Eos # (Auto) (0.0-0.4) X10*3/uL Baso # (Auto) (0.0-0.2) X10*3/uL Abs Immat Gran (auto) (0.00-0.03) X10*3/uL Absolute Neuts (auto) (2.0-8.3) x10*3/uL Absolute Nucleated RBC (0.0-0.012) X10*3/uL Nucleated RBC % (auto) (0.0-0.2) /100WBC Smear Tech's Comments D-Dimer High Sensitivty 296 NG/ML O2 Saturation % ABG pH at Pt Temp (7.35-7.45) ABG pCO2 at Pt Temp (32-45) mmHg ABG pO2 at Pt Temp (83-108) mmHg ABG HCO3 (22-26) mmol/L ABG Base Excess (Actual) mmol/L Sodium (135-145) mmol/L Potassium (3.3-5.1) mmol/L Chloride (96-108) mmol/L Carbon Dioxide (22-29) mmol/L Anion Gap (12-20) BUN (9-16) mg/dL Creatinine (0.5-1.4) mg/dL Estim Creat Clear Calc Estimated GFR Random Glucose (60-115) mg/dL Calcium (8.4-10.2) mg/dL Troponin I High Sens (<3.5-17.0) ng/L Urine Test (NEGATIVE) Urine Opiates Screen Not Detected (Not Detect) Urine Fentanyl Screen POSITIVE H (Not Detect) Ur Barbiturates Screen Not Detected (Not Detect) Ur Phencyclidine Scrn Not Detected (Not Detect) Ur Amphetamines Screen Not Detected (Not Detect) U Benzodiazepines Scrn POSITIVE H (Not Detect) Urine Cocaine Screen Not Detected (Not Detect) U Marijuana (THC) Screen POSITIVE H (Not Detect) Influenza Type A (PCR) (Negative) Influenza Type B (PCR) (Negative) RSV RNA Qual (PCR) (Negative) SARS-CoV-2 RNA (RT-PCR) (Negative) <Rojas Valiente MD - Last Filed: 12/09/21 07:00> Lab Results 12/06/21 12/06/21 12/06/21 Range/Units 16:50 16:50 16:50 WBC 18.2 H (4.8-10.8) X10*3/uL RBC 4.30 (4.20-5.50) X10*6/uL Hgb 12.8 (12.0-16.0) g/dl Hct 39.1 (37.0-47.0) % MCV 90.9 (80.0-98.0) fL MCH 29.8 (27.0-33.0) pg MCHC 32.7 (31.0-35.0) g/dl RDW 13.5 (11.0-16.0) % Plt Count 325 (160-400) X10*3/uL MPV 9.1 L (9.4-12.3) fL Immature Gran % (Auto) 1.5 H (0.0-0.4) % Neut % (Auto) 62.9 (45-73) % Lymph % (Auto) 16.5 L (20-40) % [place] % (Auto) 6.0 (2-11) % Eos % (Auto) 12.6 H (0-4) % Baso % (Auto) 0.5 (0-2) % Lymph # (Auto) 3.0 (1.2-4.9) X10*3/uL [place] # (Auto) 1.1 (0.1-1.2) X10*3/uL Eos # (Auto) 2.3 H (0.0-0.4) X10*3/uL Baso # (Auto) 0.1 (0.0-0.2) X10*3/uL Abs Immat Gran (auto) 0.28 H (0.00-0.03) X10*3/uL Absolute Neuts (auto) 11.5 H (2.0-8.3) x10*3/uL Absolute Nucleated RBC 0.000 (0.0-0.012) X10*3/uL Nucleated RBC % (auto) 0.0 (0.0-0.2) /100WBC Smear Tech's Comments VERIFIED D-Dimer High Sensitivty NG/ML O2 Saturation % ABG pH at Pt Temp (7.35-7.45) ABG pCO2 at Pt Temp (32-45) mmHg ABG pO2 at Pt Temp (83-108) mmHg ABG HCO3 (22-26) mmol/L ABG Base Excess (Actual) mmol/L Sodium 142 (135-145) mmol/L Potassium 4.1 (3.3-5.1) mmol/L Chloride 108 (96-108) mmol/L Carbon Dioxide 26 (22-29) mmol/L Anion Gap 12 (12-20) BUN 6 L (9-16) mg/dL Creatinine 0.77 (0.5-1.4) mg/dL Estim Creat Clear Calc 99.6 Estimated GFR > 60 Random Glucose 147 H (60-115) mg/dL Calcium 8.5 (8.4-10.2) mg/dL Troponin I High Sens 9.2 (<3.5-17.0) ng/L Urine Test (NEGATIVE) Urine Opiates Screen (Not Detect) Urine Fentanyl Screen (Not Detect) Ur Barbiturates Screen (Not Detect) Ur Phencyclidine Scrn (Not Detect) Ur Amphetamines Screen (Not Detect) U Benzodiazepines Scrn (Not Detect) Urine Cocaine Screen (Not Detect) U Marijuana (THC) Screen (Not Detect) Influenza Type A (PCR) (Negative) Influenza Type B (PCR) (Negative) RSV RNA Qual (PCR) (Negative) SARS-CoV-2 RNA (RT-PCR) (Negative) 12/06/21 12/06/21 12/06/21 Range/Units 17:45 18:34 18:34 WBC (4.8-10.8) X10*3/uL RBC (4.20-5.50) X10*6/uL Hgb (12.0-16.0) g/dl Hct (37.0-47.0) % MCV (80.0-98.0) fL MCH (27.0-33.0) pg MCHC (31.0-35.0) g/dl RDW (11.0-16.0) % Plt Count (160-400) X10*3/uL MPV (9.4-12.3) fL Immature Gran % (Auto) (0.0-0.4) % Neut % (Auto) (45-73) % Lymph % (Auto) (20-40) % [place] % (Auto) (2-11) % Eos % (Auto) (0-4) % Baso % (Auto) (0-2) % Lymph # (Auto) (1.2-4.9) X10*3/uL [place] # (Auto) (0.1-1.2) X10*3/uL Eos # (Auto) (0.0-0.4) X10*3/uL Baso # (Auto) (0.0-0.2) X10*3/uL Abs Immat Gran (auto) (0.00-0.03) X10*3/uL Absolute Neuts (auto) (2.0-8.3) x10*3/uL Absolute Nucleated RBC (0.0-0.012) X10*3/uL Nucleated RBC % (auto) (0.0-0.2) /100WBC Smear Tech's Comments D-Dimer High Sensitivty NG/ML O2 Saturation 99.0 % ABG pH at Pt Temp 7.34 L (7.35-7.45) ABG pCO2 at Pt Temp 45 (32-45) mmHg ABG pO2 at Pt Temp 161 H (83-108) mmHg ABG HCO3 24 (22-26) mmol/L ABG Base Excess (Actual) -1.3 mmol/L Sodium (135-145) mmol/L Potassium (3.3-5.1) mmol/L Chloride (96-108) mmol/L Carbon Dioxide (22-29) mmol/L Anion Gap (12-20) BUN (9-16) mg/dL Creatinine (0.5-1.4) mg/dL Estim Creat Clear Calc Estimated GFR Random Glucose (60-115) mg/dL Calcium (8.4-10.2) mg/dL Troponin I High Sens (<3.5-17.0) ng/L Urine Test NEGATIVE (NEGATIVE) Urine Opiates Screen (Not Detect) Urine Fentanyl Screen (Not Detect) Ur Barbiturates Screen (Not Detect) Ur Phencyclidine Scrn (Not Detect) Ur Amphetamines Screen (Not Detect) U Benzodiazepines Scrn (Not Detect) Urine Cocaine Screen (Not Detect) U Marijuana (THC) Screen (Not Detect) Influenza Type A (PCR) NEGATIVE (Negative) Influenza Type B (PCR) NEGATIVE (Negative) RSV RNA Qual (PCR) NEGATIVE (Negative) SARS-CoV-2 RNA (RT-PCR) NEGATIVE (Negative) 12/06/21 12/06/21 Range/Units 18:34 19:46 WBC (4.8-10.8) X10*3/uL RBC (4.20-5.50) X10*6/uL Hgb (12.0-16.0) g/dl Hct (37.0-47.0) % MCV (80.0-98.0) fL MCH (27.0-33.0) pg MCHC (31.0-35.0) g/dl RDW (11.0-16.0) % Plt Count (160-400) X10*3/uL MPV (9.4-12.3) fL Immature Gran % (Auto) (0.0-0.4) % Neut % (Auto) (45-73) % Lymph % (Auto) (20-40) % [place] % (Auto) (2-11) % Eos % (Auto) (0-4) % Baso % (Auto) (0-2) % Lymph # (Auto) (1.2-4.9) X10*3/uL [place] # (Auto) (0.1-1.2) X10*3/uL Eos # (Auto) (0.0-0.4) X10*3/uL Baso # (Auto) (0.0-0.2) X10*3/uL Abs Immat Gran (auto) (0.00-0.03) X10*3/uL Absolute Neuts (auto) (2.0-8.3) x10*3/uL Absolute Nucleated RBC (0.0-0.012) X10*3/uL Nucleated RBC % (auto) (0.0-0.2) /100WBC Smear Tech's Comments D-Dimer High Sensitivty 296 NG/ML O2 Saturation % ABG pH at Pt Temp (7.35-7.45) ABG pCO2 at Pt Temp (32-45) mmHg ABG pO2 at Pt Temp (83-108) mmHg ABG HCO3 (22-26) mmol/L ABG Base Excess (Actual) mmol/L Sodium (135-145) mmol/L Potassium (3.3-5.1) mmol/L Chloride (96-108) mmol/L Carbon Dioxide (22-29) mmol/L Anion Gap (12-20) BUN (9-16) mg/dL Creatinine (0.5-1.4) mg/dL Estim Creat Clear Calc Estimated GFR Random Glucose (60-115) mg/dL Calcium (8.4-10.2) mg/dL Troponin I High Sens (<3.5-17.0) ng/L Urine Test (NEGATIVE) Urine Opiates Screen Not Detected (Not Detect) Urine Fentanyl Screen POSITIVE H (Not Detect) Ur Barbiturates Screen Not Detected (Not Detect) Ur Phencyclidine Scrn Not Detected (Not Detect) Ur Amphetamines Screen Not Detected (Not Detect) U Benzodiazepines Scrn POSITIVE H (Not Detect) Urine Cocaine Screen Not Detected (Not Detect) U Marijuana (THC) Screen POSITIVE H (Not Detect) Influenza Type A (PCR) (Negative) Influenza Type B (PCR) (Negative) RSV RNA Qual (PCR) (Negative) SARS-CoV-2 RNA (RT-PCR) (Negative) <Francisco J Sheridan MD - Last Filed: 12/06/21 23:32> ECG Data ECG #1: Attestation: I personally reviewed and interpreted this ECG as follows: <Rojas Valiente MD - Last Filed: 12/09/21 07:00> Interpretation: sinus tachycardia, rate 140, no st or twave changes <Rojas Valiente MD - Last Filed: 12/09/21 07:00> Critical Care Time Critical Care Time Attestation: I spent 40 minutes of critical care, with interventions, assessments, speaking to patient, consultants, and family. <Rojas Valiente MD - Last Filed: 12/09/21 07:00> Discharge Plan Discharge Clinical Impression: Asthma with status asthmaticus, Opiate overdose <Rojas Valiente MD - Last Filed: 12/09/21 07:00> Patient Disposition: Admitted As Inpatient <Rojas Valiente MD - Last Filed: 12/09/21 07:00>
--- NOTE | 2021-12-06 16:04 | ECG_ITS ---
Test Reason : OVERDOSE Blood Pressure : / mmHG Vent. Rate : 142 BPM Atrial Rate : 142 BPM P-R Int : 088 ms QRS Dur : 100 ms QT Int : 312 ms P-R-T Axes : 100 073 -11 degrees QTc Int : 479 ms Artifact in tracing Sinus tachycardia Due to artifact, cannot asses ST segments Nonspecific ST and T wave abnormality possibly No previous ECGs available Referred By: Rojas Valiente Electronically Signed By:ANNIE PROCTOR
[2021-12-06] MEDS: methylPREDNISolone Sod Succ 125 MG/2 ML VIAL IVPUSH (16:11)
[2021-12-06] MEDS: Albuterol Sulfate (0.083%) 2.5 MG/3 ML VIAL.NEB 10 MG INHALE ×2 (16:17→17:03)
[2021-12-06] MEDS: Albuterol/Iprat 2.5/0.5MG 3 ML AMPUL.NEB INHALE ×2 (16:18→19:29)
[2021-12-06] MEDS: Magnesium Sulfate/H2O 2 GM/50 ML PIGGYBACK IV (16:19)
[2021-12-06] MEDS: EPINEPHrine 1 MG/ML VIAL 0.3 MG SUBCUT (16:21)
[2021-12-06 16:57] LABS: Basophils Absolute Auto 0.1 X10*3/uL (0.0-0.2); Basophils Percent Auto 0.5 % (0-2); Eosinophils Absolute Auto 2.3 X10*3/uL (0.0-0.4); Eosinophils Percent Auto 12.6 % (0-4); Hematocrit 39.1 % (37.0-47.0); Hemoglobin 12.8 g/dl (12.0-16.0); Imm Gran Abs Auto 0.28 X10*3/uL (0.00-0.03); Imm Gran Pct Auto 1.5 % (0.0-0.4); Lymphocytes Percent Auto 16.5 % (20-40); MANUAL DIFF FLAG SCAN; Mean Corpuscular HGB Conc 32.7 g/dl (31.0-35.0); Mean Corpuscular Hemoglobin 29.8 pg (27.0-33.0); Mean Corpuscular Volume 90.9 fL (80.0-98.0); Mean Platelet Volume 9.1 fL (9.4-12.3); Monocytes Absolute Auto 1.1 X10*3/uL (0.1-1.2); Neutrophils Absolute Auto 11.5 x10*3/uL (2.0-8.3); Neutrophils Percent Auto 62.9 % (45-73); Platelet Count 325 X10*3/uL (160-400); Red Cell Distribution Width 13.5 % (11.0-16.0); SCAN SMEAR FLAG 1; White Blood Count 18.2 X10*3/uL (4.8-10.8)
[2021-12-06 17:09] LABS: Anion Gap 12 (12-20); Blood Urea Nitrogen 6 mg/dL (9-16); Calcium 8.5 mg/dL (8.4-10.2); Carbon Dioxide 26 mmol/L (22-29); Chloride 108 mmol/L (96-108); Creatinine Clr Calc Pharmacy 99.6; Estimated Glomerular Filt Rate > 60; Glucose Random 147 mg/dL (60-115); Potassium 4.1 mmol/L (3.3-5.1); Sodium 142 mmol/L (135-145)
[2021-12-06 17:15] LABS: Troponin-I High Sensitivity 9.2 ng/L (<3.5-17.0)
[2021-12-06 17:21] LABS: SLIDE REVIEW VERIFIED
[2021-12-06 17:53] LABS: ABG Base Excess -1.3 mmol/L; ABG HCO3 24 mmol/L (22-26); ABG pCO2 45 mmHg (32-45); ABG pH 7.34 (7.35-7.45); ABG pO2 161 mmHg (83-108)
--- NOTE | 2021-12-06 17:58 | PHA.MEDREC ---
Pharmacy Consult ? Medication Reconciliation Pharmacy has completed the medication reconciliation. Pt had to cancel her appointment for vivitrol, says she is due for it now
[2021-12-06 18:49] LABS: Urine Pregnancy NEGATIVE (NEGATIVE)
[2021-12-06 18:50] LABS: UPreg QC Valid YES
--- NOTE | 2021-12-06 18:59 | PC.NURSE ---
magnesium infused at the start of shift
[2021-12-06 19:02] LABS: Amphetamine Screen Urine Not Detected (Not Detect); Barbiturates, Urine Not Detected (Not Detect); Benzodiazepines Screen Urine POSITIVE (Not Detect); Cannabinoid Screen Urine POSITIVE (Not Detect); Cocaine Screen Urine Not Detected (Not Detect); Fentanyl, urine POSITIVE (Not Detect); Opiate Screen Urine Not Detected (Not Detect); Phencyclidine Screen Urine Not Detected (Not Detect)
--- NOTE | 2021-12-06 19:10 | P.HPHOSP_ITS ---
History of Present Illness Date of Service: 12/06/21 Chief Complaint: Shortness of breath 26-year-old female with a past medical history of asthma, anxiety, depression, mood disorder, polysubstance abuse presented to the hospital today with chief complaint of shortness of breath. Patient reported that she has been having shortness of breath over the past 3-4 days. Which has been gradually worsening. No significant improvement with the home inhalers; hence decided to come to the ER for further evaluation. complains of dry cough. Denies any runny nose. Denies any headaches numbness tingling or focal weakness. Denies any sputum production. Denies any GI symptoms. Review of all other systems is negative except mentioned above Patient mentions to me that she does not use any illicit drugs. ER course: Per ER team patient noted to be in mild respiratory distress; noted have significant expiratory and inspiratory wheezing on presentation; patient was given Solu-Medrol, nebulizations, magnesium; with improvement in the respiratory status. Patient was tachycardic and mildly tachypneic. ER team also mentioned that patient is U tox is positive for fentanyl, cannabis; also just before entering into the ER patient probably syncopized secondary to the suspected overdose-given Narcan with significant improvement in her mental status. Patient is currently alert and awake. [facility] Medical History (Updated 04/11/22 @ 23:56 by Anthony Calhoun MD) Asthma Asthma exacerbation Asthma with status asthmaticus Asthma without acute exacerbation Bronchitis GERD (gastroesophageal reflux disease) Pertinent family history: Father has heart disease Social History Household Members: Significant Other Housing: Apartment Do you presently have visiting nurse or other home services: No Alcohol intake: unknown Patient Tobacco Use Status: Former Tobacco user Substance Use Type: Marijuana service: No Current occupational status: employed and unemployed Meds Allergies Allergy/AdvReac Type Severity Reaction Status Date / Time No Known Allergies Allergy Verified 05/03/21 17:00 [No Known Allergies*] Active Medications: Current Medications Pharmacy Consult (Consult Rx Perform Med Rec) 1 each MISCELLANE ONCE PRN PRN Reason: Consult order Home Medications Medication Instructions Recorded Confirmed Last Taken Type cetirizine 10 mg tablet (Zyrtec) 10 mg PO DAILY 06/06/20 01/30/22 12/06/21 History diphenhydramine HCl 50 mg capsule 50 mg PO BEDTIME PRN Sleep 06/06/20 01/30/22 12/05/21 History omeprazole 20 mg capsule,delayed 20 mg PO BID 06/06/20 01/30/22 12/06/21 History release trazodone 50 mg tablet 50 mg PO BEDTIME 06/06/20 01/30/22 12/05/21 History bupropion HCl 300 mg 24 hr tablet, 1 tab PO DAILY 12/06/21 01/30/22 12/06/21 History extended release naltrexone microspheres 380 mg 4 ml IM Q4W 12/06/21 01/30/22 12/12/21 History intramuscular suspension,extended release (Vivitrol) norethindrone 1 mg-ethinyl 1 tab PO DAILY 12/06/21 01/30/22 12/06/21 History estradiol 20 mcg (21)-iron 75 mg (7) tablet (09/26 (28)) sertraline 100 mg tablet 150 mg PO DAILY 12/06/21 01/30/22 12/06/21 History buspirone 10 mg tablet 10 mg PO BID 01/30/22 01/30/22 Unknown History clonazepam 0.5 mg tablet 1 tab PO DAILY PRN anxiety attack 01/30/22 01/30/22 Unknown History hydroxyzine HCl 25 mg tablet 1 - 2 tab PO BID PRN anxiety 01/30/22 01/30/22 Unknown History ibuprofen 600 mg tablet (IBU) 1 tab PO BID PRN pain 01/30/22 01/30/22 Unknown History ondansetron HCl 4 mg tablet 1 tab PO Q8-12H PRN nausea 01/30/22 01/30/22 Unknown History Physical Exam Vital Signs and Narrative: Vital Signs: Last Vital Signs Temp 98.3 F 12/06/21 18:35 Pulse 119 H 12/06/21 18:35 Resp 22 H 12/06/21 18:35 BP 127/65 12/06/21 18:35 Pulse Ox 94 12/06/21 19:03 Oxygen Flow Rate 3 12/06/21 19:03 BMI result Body Mass Index 23.6 Gen: Appears be in no acute distress HEENT: NCAT, Moist mucosa. Pulmonary: Bilateral inspiratory and expiratory wheezes noted; able to finish his sentences. Mildly tachypneic-R 22; tachycardic to 110s. CVS: Normal S1-S2 Abdomen: BS+, Soft, Nontender Extremities: Warm well perfused Neuro: Alert and awake. Grossly nonfocal Results Labs CBC and Chem 7: 12/07/21 07:45 12/07/21 07:05 Labs: Laboratory Results - last 24 hr 12/06/21 12/06/21 12/06/21 16:50 16:50 16:50 MCV 90.9 MCH 29.8 MCHC 32.7 RDW 13.5 Plt Count 325 MPV 9.1 L Immature Gran % (Auto) 1.5 H Neut % (Auto) 62.9 Lymph % (Auto) 16.5 L [place] % (Auto) 6.0 Eos % (Auto) 12.6 H Baso % (Auto) 0.5 Lymph # (Auto) 3.0 [place] # (Auto) 1.1 Eos # (Auto) 2.3 H Baso # (Auto) 0.1 Abs Immat Gran (auto) 0.28 H Absolute Neuts (auto) 11.5 H Absolute Nucleated RBC 0.000 Nucleated RBC % (auto) 0.0 Smear Tech's Comments VERIFIED O2 Saturation ABG pH at Pt Temp ABG pCO2 at Pt Temp ABG pO2 at Pt Temp ABG HCO3 ABG Base Excess (Actual) Anion Gap 12 Estim Creat Clear Calc 99.6 Estimated GFR > 60 Random Glucose 147 H Calcium 8.5 Troponin I High Sens 9.2 Urine Test Urine Opiates Screen Urine Fentanyl Screen Ur Barbiturates Screen Ur Phencyclidine Scrn Ur Amphetamines Screen U Benzodiazepines Scrn Urine Cocaine Screen U Marijuana (THC) Screen 12/06/21 12/06/21 12/06/21 17:45 18:34 18:34 MCV MCH MCHC RDW Plt Count MPV Immature Gran % (Auto) Neut % (Auto) Lymph % (Auto) [place] % (Auto) Eos % (Auto) Baso % (Auto) Lymph # (Auto) [place] # (Auto) Eos # (Auto) Baso # (Auto) Abs Immat Gran (auto) Absolute Neuts (auto) Absolute Nucleated RBC Nucleated RBC % (auto) Smear Tech's Comments O2 Saturation 99.0 ABG pH at Pt Temp 7.34 L ABG pCO2 at Pt Temp 45 ABG pO2 at Pt Temp 161 H ABG HCO3 24 ABG Base Excess (Actual) -1.3 Anion Gap Estim Creat Clear Calc Estimated GFR Random Glucose Calcium Troponin I High Sens Urine Test NEGATIVE Urine Opiates Screen Not Detected Urine Fentanyl Screen POSITIVE H Ur Barbiturates Screen Not Detected Ur Phencyclidine Scrn Not Detected Ur Amphetamines Screen Not Detected U Benzodiazepines Scrn POSITIVE H Urine Cocaine Screen Not Detected U Marijuana (THC) Screen POSITIVE H Imaging Radiologist's Impressions: Impressions Chest X-Ray 12/06/21 16:42 IMPRESSION: Unremarkable examination. Assessment and Plan (1) Asthma exacerbation: Status: Acute Plan 26-year-old female with a past medical history of asthma, anxiety, depression, mood disorder, polysubstance abuse presented to the hospital today with chief complaint of shortness of breath. Noted to be in acute asthma exacerbation. Admitted for further management. Acute asthma exacerbation: Patient currently saturating 94 95% on supplemental oxygen. Not in respiratory distress. Able to finish sentences. Respiratory rate 22. Patient received Solu-Medrol 125 mg, nebulizations, magnesium. Will continue Solu-Medrol 40 mg IV q.6 H Nebulizations standing and p.r.n. Supplemental oxygen p.r.n. D-dimer elevated-CT chest showed no evidence of PE Pneumonitis: CT chest showed ground-glass opacities consistent with possible COVID-19 pneumonitis Patient's RSV, influenza, COVID-19 resulted negative. Patient empirically been covered with ceftriaxone and azithromycin. Id consult for further recommendations. also ?Pneumonitis secondary drug inhalational lung injury (ER reported pt snorted heroin)- Pulmonary consult. Polysubstance abuse/opiate abuse: Per ER team patient probably overdosed-mental status improved significantly after Narcan x2. Patient currently are entered awake. Addiction Medicine consult. History of anxiety/depression/mood disorder: Continue home bupropion, buspirone, lamotrigine, sertraline DVT prophylaxis: Lovenox Code status: Full code Quality Stroke Does the patient have a stroke diagnosis?: No VTE Prior VTE?: No VTE Risk Level:: Medical - moderate - high VTE Device Contraindication: Treatment Not Indicated VTE Drug Contraindication: N/A - Med Ordered
[2021-12-06 19:21] LABS: Influenza A PCR NEGATIVE (Negative); Influenza B PCR NEGATIVE (Negative); Resp Syncy Virus RNA Qual PCR NEGATIVE (Negative); SARS COV2 PCR INHOUSE NEGATIVE (Negative)
[2021-12-06] MEDS: Ketorolac Tromethamine 15 MG/ML VIAL IVPUSH (19:32)
[2021-12-06 20:12] LABS: D Dimer High Sensitivity 296 NG/ML
[2021-12-06] MEDS: LORazepam 2 MG/ML VIAL 1 MG IVPUSH (21:02)
[2021-12-06] MEDS: iohexoL 350 MG/ML 100 ML INFUS..BTL IV (21:36)
--- NOTE | 2021-12-06 22:08 | MHC.CM.PN ---
CM received a call from Gaetano MOELLER, who expressed concerns that an was in the car when the patient arrived and was concerned that pt was with alone, ? drug use. Pt arrived in resp failure, and responded to Narcan, both intranasal and IV. Pt has a hx of polysubstance abuse. CM met with patient at request of charge nurse. Pt admitted. Pt denies any drug use and states she has a hx and takes Vivitrol. Tox screen is positive for fentanyl and benozodiazapines. Pt denies fentanyl use. CM and Dr. Sheridan met with patient. 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 Pt admits to Xanax use. Pt and partner tell CM that they buy that off the street. aware. Pt very upset, crying. Worried about her other daughter. CM asked about her daughter, if she has custody of the 3 year old, and if she has an open DCF case. Pt admits to open case and that she voluntarily gave custody to her mother, Ayala Ramirez ([phone]). This CM filed a 51A with DCF at 2100. RN and charge nurse aware.
--- NOTE | 2021-12-06 22:27 | MHC.CM.PN ---
CM met with admitted patient with bed assignment pending. A&Ox3. No HCP, No DME, No services. Active open DCF case with 3 y/o daughter, Anna. Maternal grandmother, Ayala Ramirez, has custody. Pt has 4 month old, Gisela, whom pt and fob have custody. Infant was in car when pt arrived and is now with her maternal grandmother. +fentanyl +benzos. Pt admits to buying Xanax off the street. Pt and fob aware that CM will file a 51A, as a mandated digital court reporter. Pt very upset, crying. Worried she will not get custody of her other daughter. Denies any drug use. Pt did respond to resp arrest on arrival with [facility]. FOB in recovery program for opiate addiction. D/C plan: Home without services. Pt to see recovery services/CARE team. Pt to arrange transportation. 51A filed with DCF by this telegraphic typewriter repairer at 2100.
[2021-12-06] MEDS: methylPREDNISolone Sod Succ 40 MG/ML VIAL IVPUSH (22:43)
[2021-12-06] MEDS: Azithromycin 500 MG TABLET PO (22:44)
[2021-12-06] MEDS: busPIRone HCl 10 MG TABLET PO (22:44)
[2021-12-06] MEDS: Enoxaparin Sodium 40 MG/0.4 ML SYRINGE SUBCUT (22:44)
[2021-12-06] MEDS: Dextrose 5 % and 0.45 % NaCl 1,000 ML 100 ML IVCONT (22:45)
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
--- NOTE | 2021-12-06 23:52 | PC.NURSE ---
2144; Patient transferred to overflow ed, patient is alert and oriented x3. Patient ambulated to bathroom, steady gait, reports sob with ambulation/activity. L/s wheezy, currently on 3 liters via n/c respiratory called for breathing treatment. Bedtime medications administered per emar. vss, callbell within reach.
[2021-12-07] VITALS (11 sets, daily range): BP systolic 90–124; BP diastolic 48–58; PULSE 101–130; RESP 15–30; TEMP 36.9–37.2; O2SAT 92–98
[2021-12-07] MEDS: Azithromycin 500 MG TABLET PO (01:27)
[2021-12-07] MEDS: cefTRIAXone sodium 1 GM in 0.9 % Sodium Chloride 50 ML IV (01:27)
[2021-12-07] MEDS: traZODone HCL 50 MG TABLET PO ×2 (01:27→20:45)
[2021-12-07] MEDS: 0.9 % Sodium Chloride Flush 3 ML SYRINGE IVFLUSH ×3 (01:34→16:55)
[2021-12-07] MEDS: Omeprazole 20 MG CAPSULE.DR PO ×2 (05:52→16:47)
[2021-12-07] MEDS: methylPREDNISolone Sod Succ 40 MG/ML VIAL IVPUSH ×3 (05:52→19:56)
[2021-12-07 07:30] LABS: Anion Gap 11 (12-20); Blood Urea Nitrogen 5 mg/dL (9-16); Calcium 8.3 mg/dL (8.4-10.2); Carbon Dioxide 25 mmol/L (22-29); Chloride 108 mmol/L (96-108); Creatinine Clr Calc Pharmacy 121.7; Estimated Glomerular Filt Rate > 60; Glucose Random 163 mg/dL (60-115); Potassium 3.5 mmol/L (3.3-5.1); Sodium 140 mmol/L (135-145)
[2021-12-07 07:54] LABS: Basophils Percent Auto 0.1 % (0-2); Eosinophils Percent Auto 0.1 % (0-4); Hematocrit 34.6 % (37.0-47.0); Hemoglobin 11.5 g/dl (12.0-16.0); Imm Gran Abs Auto 0.15 X10*3/uL (0.00-0.03); Imm Gran Pct Auto 0.8 % (0.0-0.4); Lymphocytes Percent Auto 5.3 % (20-40); MANUAL DIFF FLAG SCAN; Mean Corpuscular HGB Conc 33.2 g/dl (31.0-35.0); Mean Corpuscular Volume 90.3 fL (80.0-98.0); Mean Platelet Volume 9.3 fL (9.4-12.3); Monocytes Absolute Auto 0.3 X10*3/uL (0.1-1.2); Monocytes Percent Auto 1.3 % (2-11); Neutrophils Absolute Auto 17.7 x10*3/uL (2.0-8.3); Neutrophils Percent Auto 92.4 % (45-73); Platelet Count 298 X10*3/uL (160-400); Red Blood Count 3.83 X10*6/uL (4.20-5.50); Red Cell Distribution Width 13.5 % (11.0-16.0); SCAN SMEAR FLAG 1; White Blood Count 19.1 X10*3/uL (4.8-10.8)
[2021-12-07 08:12] LABS: SLIDE REVIEW VERIFIED
[2021-12-07] MEDS: Sertraline HCL 100 MG TABLET PO (08:19)
[2021-12-07] MEDS: buPROPion HCl XL 300 MG TAB.ER.24H PO (08:19)
[2021-12-07] MEDS: busPIRone HCl 10 MG TABLET PO ×2 (08:19→20:45)
[2021-12-07] MEDS: lamoTRIgine 25 MG TABLET 50 MG PO (08:19)
[2021-12-07] MEDS: Loratadine 10 MG TABLET PO (08:19)
[2021-12-07 09:16] LABS: Procalcitonin 0.13 ng/mL
--- NOTE | 2021-12-07 09:19 | P.CONPL_ITS ---
History of Present Illness History of Present Illness Consult date: 12/07/21 Chief complaint: Acute asthma exacerbation Narrative: Chief Complaint: Shortness of breath 26-year-old female with a past medical history of asthma, anxiety, depression, mood disorder, polysubstance abuse presented to the hospital today with chief complaint of shortness of breathfor a few days . Patient reported that she has been having shortness of breath over the past 3-4 days.? Which has been gradually worsening.? No significant improvement with the home inhalers.? ?complains of dry cough.? Denies any runny nose.? Denies any headaches numbness tingling or focal weakness.? Denies any sputum production. Patient has past history of bronchial asthma for the past few years, with occasional flare ups. She uses albuterol 2 puffs Q 4-6 hours on p.r.n. basis. Denies smoking cigarettes, but has smoked marijuana once in awhile . As noted above she does have history of poly substance abuse in the past, denies current usage. Has history of the depression and mood disorder. Denies any GI symptoms. ? Review of Systems Review of Systems: Yes all other systems are reviewed and are negative Eyes: Eyes: Reports no additional eye complaints ENT: Reports system reviewed and no additional complaints, except as documented Cardiovascular: Cardiovascular: Denies chest pain, Denies irregular heart rhythm and Denies leg edema Respiratory: Respiratory: Reports as per HPI Gastrointestinal: Gastrointestinal: Reports heartburn (Being treated for GERD symptoms) Genitourinary: Genitourinary: Reports no additional female genitourinary complaints Musculoskeletal: Musculoskeletal: Reports no additional musculoskeletal complaints Integumentary/Breasts: Skin/Breast: Reports system reviewed and no additional complaints, except as docu Neurologic: Reports system reviewed and no additional complaints, except as documented COUNTS INCLUDE 234 BEDS AT THE [facility] Past Medical History Medical History (Updated 12/07/21 @ 09:28 by Venancio King MD) Asthma Asthma without acute exacerbation Bronchitis GERD (gastroesophageal reflux disease) Social History Social History Alcohol intake: unknown Patient Tobacco Use Status: Never used Tobacco Use of substances other than those prescribed or required for medical reasons: Yes Substance Use Type: Marijuana and Other Last Used Substance: Just Prior to Admission Any prior treatment program specific to substance use: Yes Advance Directives: No Advance Directives Information Provided: No service: No Current occupational status: employed Meds Allergies Allergy/AdvReac Type Severity Reaction Status Date / Time No Known Allergies Allergy Verified 05/03/21 17:00 [No Known Allergies*] Active Medications: Current Medications Acetaminophen (Acetaminophen 325 Mg Tablet) 650 mg PO Q6H PRN PRN Reason: Pain, Mild (Pain Scale 1-3) Albuterol/Ipratropium (Albuterol/Iprat 2.5/0.5mg 3 Ml Ampul.Neb) 3 ml INHALE RQ4H PRN PRN Reason: Shortness of Breath/Wheezing Benzonatate (Benzonatate 100 Mg Capsule) 100 mg PO TID PRN PRN Reason: Cough Bupropion HCl (Bupropion Hcl Xl 300 Mg Tab.Er.24h) 300 mg PO DAILY [facility] Last Admin: 12/07/21 08:19 Dose: 300 mg Documented by: Buspirone HCl (Buspirone Hcl 10 Mg Tablet) 10 mg PO BID [facility] Last Admin: 12/07/21 08:19 Dose: 10 mg Documented by: Diphenhydramine HCl (Diphenhydramine Hcl 25 Mg Tablet) 50 mg PO BEDTIME PRN PRN Reason: Sleep Enoxaparin Sodium (Enoxaparin Sodium 40 Mg/0.4 Ml Syringe) 40 mg SUBCUT Q24H [facility] Last Admin: 12/06/21 22:44 Dose: 40 mg Documented by: Lamotrigine (Lamotrigine 25 Mg Tablet) 50 mg PO DAILY [facility] Last Admin: 12/07/21 08:19 Dose: 50 mg Documented by: Loratadine (Loratadine 10 Mg Tablet) 10 mg PO DAILY [facility] Last Admin: 12/07/21 08:19 Dose: 10 mg Documented by: Melatonin (Melatonin 3 Mg Tablet) 6 mg PO BEDTIME PRN PRN Reason: Insomnia Methylprednisolone Sodium Succinate (Methylprednisolone Sod Succ 40 Mg/Ml Vial) 40 mg IVPUSH Q12H [facility] Non-Formulary Medication (Naltrexone Microspheres) 4 ml IM Q28D [facility] Non-Formulary Medication (Norethindrone-E.Estradiol-Iron [09/26 (28)]) 1 tab PO DAILY [facility] Omeprazole (Omeprazole 20 Mg Capsule.) 20 mg PO BID@0630,1630 [facility] Last Admin: 12/07/21 05:52 Dose: 20 mg Documented by: Pharmacy Consult (Consult Rx Perform Med Rec) 1 each MISCELLANE ONCE PRN PRN Reason: Consult order Senna (Sennosides 8.6 Mg Tablet) 17.2 mg PO BEDTIME PRN PRN Reason: Constipation Sertraline HCl (Sertraline Hcl 100 Mg Tablet) 100 mg PO DAILY [facility] Last Admin: 12/07/21 08:19 Dose: 100 mg Documented by: Sodium Chloride (0.9 % Sodium Chloride Flush 3 Ml Syringe) 3 ml IVFLUSH QSHIFT [facility] Last Admin: 12/07/21 08:21 Dose: 3 ml Documented by: Trazodone HCl (Trazodone Hcl 50 Mg Tablet) 50 mg PO BEDTIME [facility] Last Admin: 12/07/21 01:27 Dose: 50 mg Documented by: Home Medications Medication Instructions Recorded Confirmed Last Taken Type cetirizine 10 mg tablet (Zyrtec) 10 mg PO DAILY 06/06/20 12/06/21 12/06/21 History diphenhydramine HCl 50 mg capsule 50 mg PO BEDTIME PRN 06/06/20 12/06/21 12/05/21 History omeprazole 20 mg capsule,delayed 20 mg PO BID 06/06/20 12/06/21 12/06/21 History release trazodone 50 mg tablet 50 mg PO BEDTIME 06/06/20 12/06/21 12/05/21 History bupropion HCl 300 mg 24 hr tablet, 1 tab PO DAILY 12/06/21 12/06/21 12/06/21 History extended release buspirone 5 mg tablet 10 mg PO BID 12/06/21 12/06/21 12/06/21 History lamotrigine 25 mg tablet 50 mg PO DAILY 12/06/21 12/06/21 12/06/21 History naltrexone microspheres 380 mg 4 ml IM Q4W 12/06/21 12/06/21 Unknown History intramuscular suspension,extended release (Vivitrol) norethindrone 1 mg-ethinyl 1 tab PO DAILY 12/06/21 12/06/21 12/06/21 History estradiol 20 mcg (21)-iron 75 mg (7) tablet (Junel FE 09/26 ()) sertraline 100 mg tablet 1 tab PO DAILY 12/06/21 12/06/2112/06/22 History Physical Exam Vital Signs: Vital Signs: Last Vital Signs Temp 99.0 F 12/07/21 05:30 Pulse 101 H 12/07/21 08:18 Resp 22 H 12/07/21 08:18 BP 124/50 L 12/07/21 08:18 Pulse Ox 95 12/07/21 08:18 Oxygen Flow Rate 3 12/06/21 19:03 BMI result Body Mass Index 23.6 Const: General: healthy appearing, comfortable, no acute distress, alert and awake Orientation/consciousness: patient oriented x3 HEENT: Head: Yes normal to inspection General nose exam: No nasal polyps present and No nasal discharge present Face and sinus: Yes sinuses nontender Mouth: oropharynx normal Throat: Yes posterior oropharynx normal Eyes: General: appearance normal, both eyes and all related structures Neck: Neck: Yes normal visual inspection, Yes no lymphadenopathy, Yes trachea midline and Yes no JVD Thyroid: Thyroid normal Chest: Chest palpation & inspection: normal inspection of the chest, normal pa lpation of entire chest wall and no tenderness Resp: Other: Percussion note is resonant, Breath sounds are heard equally on both sides. She has scattered inspiratory wheezes and a few scattered Creps. Cardio: Palpation: normal PMI Rate: regular rate Rhythm: regular rhythm Heart sounds: no gallops and no murmurs Peripheral pulses: Peripheral pulses 2+ throughout GI: Palpation (GI): Soft to palpation, nontender, No hepatosplenomegaly present and no masses Auscultation: normal bowel sounds Back/Spine/Pelvis: Thoracic/Lumbar Spine: thoracic and lumbar spine normal to inspection Skin: General skin exam: no rashes or lesions noted Neuro: General: patient oriented x3 and no focal motor deficits Cranial nerves: Yes CN's II-XII intact bilaterally Extrem: General: Yes normal to inspection, Yes no clubbing, cyanosis or edema and Yes no calf tenderness Psych: Appearance: grossly normal Mental Status: other (Appears depressed) Speech and movement: Normal speech and movement present Results Laboratory Findings CBC and BMP: 12/07/21 07:45 12/07/21 07:05 Abnormal lab findings: Abnormal Labs 12/06/21 12/06/21 12/06/21 16:50 16:50 17:45 WBC 18.2 H RBC Hgb Hct MPV 9.1 L Immature Gran % (Auto) 1.5 H Neut % (Auto) Lymph % (Auto) 16.5 L [place] % (Auto) Eos % (Auto) 12.6 H Lymph # (Auto) Eos # (Auto) 2.3 H Abs Immat Gran (auto) 0.28 H Absolute Neuts (auto) 11.5 H ABG pH at Pt Temp 7.34 L ABG pO2 at Pt Temp 161 H Anion Gap BUN 6 L Random Glucose 147 H Calcium Urine Fentanyl Screen U Benzodiazepines Scrn U Marijuana (THC) Screen 12/06/21 12/07/21 12/07/21 18:34 07:05 07:45 WBC 19.1 H RBC 3.83 L Hgb 11.5 L Hct 34.6 L MPV 9.3 L Immature Gran % (Auto) 0.8 H Neut % (Auto) 92.4 H Lymph % (Auto) 5.3 L [place] % (Auto) 1.3 L Eos % (Auto) Lymph # (Auto) 1.0 L Eos # (Auto) Abs Immat Gran (auto) 0.15 H Absolute Neuts (auto) 17.7 H ABG pH at Pt Temp ABG pO2 at Pt Temp Anion Gap 11 L BUN 5 L Random Glucose 163 H Calcium 8.3 L Urine Fentanyl Screen POSITIVE H U Benzodiazepines Scrn POSITIVE H U Marijuana (THC) Screen POSITIVE H Diagnostic Findings Chest x-ray: report reviewed and image reviewed CT scan - chest: report reviewed and image reviewed Assessment and Plan (1) Asthma without acute exacerbation: Status: Acute (2) Bronchitis: Status: Acute Plan This 26 years old female has an acute exacerbation of bronchial asthma secondary to Acute bronchitis, and limited nonspecific pneumonitis in upper lobes. There is history of polysubstance abuse, current smoker of Marijuana . Recc : Treat with a short course of IV Solu-Medrol, followed by a short course of prednisone by mouth. Because of the some pneumonitis and also leukocytosis, I think we can empirically treat her with IV Zithromax Continue DuoNeb updrafts Q 6 hours while awake and p.r.n.. Continue her regular medications. Procedures Date of Service Date of Service: 12/07/21
--- NOTE | 2021-12-07 10:52 | PC.NURSE ---
Pt is resting in hospital bed, sinus tachy on the monitor, other vitals stable. Lungs sound coarse bilaterally, and breathing a little shallow, with expiratory wheezes noted. Pt c/o some generalized pain all over. Medicated per NOV. Callbell and belongings within reach.
--- NOTE | 2021-12-07 11:21 | HO.PM.IMPN ---
Subjective Subjective Date of Service: 12/07/21 Interval History: c/o dyspnea/wheeze dry cough, no sputum no fever denies inhalation of heroin; states that she just took Xanax Review of Systems Review of Systems: Yes all other systems are reviewed and are negative Physical Exam Vital Signs: Vital Signs: Last Vital Signs Temp 99.0 F 12/07/21 05:30 Pulse 101 H 12/07/21 08:18 Resp 22 H 12/07/21 08:18 BP 124/50 L 12/07/21 08:18 Pulse Ox 95 12/07/21 08:18 Oxygen Flow Rate 3 12/06/21 19:03 BMI result Body Mass Index 23.6 Gen: moderate resp distress HEENT: sclera anicteric, moist mucus membranes Neck: supple Lungs: tachypneic, diffuse exp wheezing Heart: tachycardic, no murmurs Abd: soft, non-tender, non-distended Ext: no edema Skin: warm/well-perfused Neuro: alert and oriented x3, no focal findings Psych: appropriate affect Objective Data Active Medications Acetaminophen (Acetaminophen 325 Mg Tablet) 650 mg PO Q6H PRN PRN Reason: Pain, Mild (Pain Scale 1-3) Albuterol/Ipratropium (Albuterol/Iprat 2.5/0.5mg 3 Ml Ampul.Neb) 3 ml INHALE RQ4H WHILE AWAKE [facility] Benzonatate (Benzonatate 100 Mg Capsule) 100 mg PO TID PRN PRN Reason: Cough Bupropion HCl (Bupropion Hcl Xl 300 Mg Tab.Er.24h) 300 mg PO DAILY [facility] Last Admin: 12/07/21 08:19 Dose: 300 mg Documented by: MARLA Buspirone HCl (Buspirone Hcl 10 Mg Tablet) 10 mg PO BID [facility] Last Admin: 12/07/21 08:19 Dose: 10 mg Documented by: MARLA Diphenhydramine HCl (Diphenhydramine Hcl 25 Mg Tablet) 50 mg PO BEDTIME PRN PRN Reason: Sleep Enoxaparin Sodium (Enoxaparin Sodium 40 Mg/0.4 Ml Syringe) 40 mg SUBCUT Q24H [facility] Last Admin: 12/06/21 22:44 Dose: 40 mg Documented by: MIKEASY Azithromycin 500 mg/ Sodium (Chloride) 250 mls @ 125 mls/hr IV Q24H [facility] Lamotrigine (Lamotrigine 25 Mg Tablet) 50 mg PO DAILY [facility] Last Admin: 12/07/21 08:19 Dose: 50 mg Documented by: MARLA Loratadine (Loratadine 10 Mg Tablet) 10 mg PO DAILY [facility] Last Admin: 12/07/21 08:19 Dose: 10 mg Documented by: MARLA Melatonin (Melatonin 3 Mg Tablet) 6 mg PO BEDTIME PRN PRN Reason: Insomnia Methylprednisolone Sodium Succinate (Methylprednisolone Sod Succ 40 Mg/Ml Vial) 40 mg IVPUSH Q12H [facility] Non-Formulary Medication (Naltrexone Microspheres) 4 ml IM Q28D [facility] Non-Formulary Medication (Norethindrone-E.Estradiol-Iron [09/26 (28)]) 1 tab PO DAILY [facility] Omeprazole (Omeprazole 20 Mg Capsule.) 20 mg PO BID@0630,1630 [facility] Last Admin: 12/07/21 05:52 Dose: 20 mg Documented by: NIK Pharmacy Consult (Consult Rx Perform Med Rec) 1 each MISCELLANE ONCE PRN PRN Reason: Consult order Senna (Sennosides 8.6 Mg Tablet) 17.2 mg PO BEDTIME PRN PRN Reason: Constipation Sertraline HCl (Sertraline Hcl 100 Mg Tablet) 100 mg PO DAILY [facility] Last Admin: 12/07/21 08:19 Dose: 100 mg Documented by: MARLA Sodium Chloride (0.9 % Sodium Chloride Flush 3 Ml Syringe) 3 ml IVFLUSH QSHIFT [facility] Last Admin: 12/07/21 08:21 Dose: 3 ml Documented by: MARLA Trazodone HCl (Trazodone Hcl 50 Mg Tablet) 50 mg PO BEDTIME [facility] Last Admin: 12/07/21 01:27 Dose: 50 mg Documented by: NIK Labs CBC & Chem 7: 12/07/21 07:45 12/07/21 07:05 Labs: Laboratory Results - last 24 hr 12/06/21 12/06/21 12/06/21 16:50 16:50 16:50 MCV 90.9 MCH 29.8 MCHC 32.7 RDW 13.5 Plt Count 325 MPV 9.1 L Immature Gran % (Auto) 1.5 H Neut % (Auto) 62.9 Lymph % (Auto) 16.5 L [place] % (Auto) 6.0 Eos % (Auto) 12.6 H Baso % (Auto) 0.5 Lymph # (Auto) 3.0 [place] # (Auto) 1.1 Eos # (Auto) 2.3 H Baso # (Auto) 0.1 Abs Immat Gran (auto) 0.28 H Absolute Neuts (auto) 11.5 H Absolute Nucleated RBC 0.000 Nucleated RBC % (auto) 0.0 Smear Tech's Comments VERIFIED D-Dimer High Sensitivty O2 Saturation ABG pH at Pt Temp ABG pCO2 at Pt Temp ABG pO2 at Pt Temp ABG HCO3 ABG Base Excess (Actual) Anion Gap 12 Estim Creat Clear Calc 99.6 Estimated GFR > 60 Random Glucose 147 H Calcium 8.5 Troponin I High Sens 9.2 Procalcitonin Urine Test Urine Opiates Screen Urine Fentanyl Screen Ur Barbiturates Screen Ur Phencyclidine Scrn Ur Amphetamines Screen U Benzodiazepines Scrn Urine Cocaine Screen U Marijuana (THC) Screen Influenza Type A (PCR) Influenza Type B (PCR) RSV RNA Qual (PCR) SARS-CoV-2 RNA (RT-PCR) 12/06/21 12/06/21 12/06/21 17:45 18:34 18:34 MCV MCH MCHC RDW Plt Count MPV Immature Gran % (Auto) Neut % (Auto) Lymph % (Auto) [place] % (Auto) Eos % (Auto) Baso % (Auto) Lymph # (Auto) [place] # (Auto) Eos # (Auto) Baso # (Auto) Abs Immat Gran (auto) Absolute Neuts (auto) Absolute Nucleated RBC Nucleated RBC % (auto) Smear Tech's Comments D-Dimer High Sensitivty O2 Saturation 99.0 ABG pH at Pt Temp 7.34 L ABG pCO2 at Pt Temp 45 ABG pO2 at Pt Temp 161 H ABG HCO3 24 ABG Base Excess (Actual) -1.3 Anion Gap Estim Creat Clear Calc Estimated GFR Random Glucose Calcium Troponin I High Sens Procalcitonin Urine Test NEGATIVE Urine Opiates Screen Urine Fentanyl Screen Ur Barbiturates Screen Ur Phencyclidine Scrn Ur Amphetamines Screen U Benzodiazepines Scrn Urine Cocaine Screen U Marijuana (THC) Screen Influenza Type A (PCR) NEGATIVE Influenza Type B (PCR) NEGATIVE RSV RNA Qual (PCR) NEGATIVE SARS-CoV-2 RNA (RT-PCR) NEGATIVE 12/06/21 12/06/21 12/07/21 18:34 19:46 07:05 MCV MCH MCHC RDW Plt Count MPV Immature Gran % (Auto) Neut % (Auto) Lymph % (Auto) [place] % (Auto) Eos % (Auto) Baso % (Auto) Lymph # (Auto) [place] # (Auto) Eos # (Auto) Baso # (Auto) Abs Immat Gran (auto) Absolute Neuts (auto) Absolute Nucleated RBC Nucleated RBC % (auto) Smear Tech's Comments D-Dimer High Sensitivty 296 O2 Saturation ABG pH at Pt Temp ABG pCO2 at Pt Temp ABG pO2 at Pt Temp ABG HCO3 ABG Base Excess (Actual) Anion Gap 11 L Estim Creat Clear Calc 121.7 Estimated GFR > 60 Random Glucose 163 H Calcium 8.3 L Troponin I High Sens Procalcitonin Urine Test Urine Opiates Screen Not Detected Urine Fentanyl Screen POSITIVE H Ur Barbiturates Screen Not Detected Ur Phencyclidine Scrn Not Detected Ur Amphetamines Screen Not Detected U Benzodiazepines Scrn POSITIVE H Urine Cocaine Screen Not Detected U Marijuana (THC) Screen POSITIVE H Influenza Type A (PCR) Influenza Type B (PCR) RSV RNA Qual (PCR) SARS-CoV-2 RNA (RT-PCR) 12/07/21 12/07/21 07:05 07:45 MCV 90.3 MCH 30.0 MCHC 33.2 RDW 13.5 Plt Count 298 MPV 9.3 L Immature Gran % (Auto) 0.8 H Neut % (Auto) 92.4 H Lymph % (Auto) 5.3 L [place] % (Auto) 1.3 L Eos % (Auto) 0.1 Baso % (Auto) 0.1 Lymph # (Auto) 1.0 L [place] # (Auto) 0.3 Eos # (Auto) 0.0 Baso # (Auto) 0.0 Abs Immat Gran (auto) 0.15 H Absolute Neuts (auto) 17.7 H Absolute Nucleated RBC 0.000 Nucleated RBC % (auto) 0.0 Smear Tech's Comments VERIFIED D-Dimer High Sensitivty O2 Saturation ABG pH at Pt Temp ABG pCO2 at Pt Temp ABG pO2 at Pt Temp ABG HCO3 ABG Base Excess (Actual) Anion Gap Estim Creat Clear Calc Estimated GFR Random Glucose Calcium Troponin I High Sens Procalcitonin 0.13 Urine Test Urine Opiates Screen Urine Fentanyl Screen Ur Barbiturates Screen Ur Phencyclidine Scrn Ur Amphetamines Screen U Benzodiazepines Scrn Urine Cocaine Screen U Marijuana (THC) Screen Influenza Type A (PCR) Influenza Type B (PCR) RSV RNA Qual (PCR) SARS-CoV-2 RNA (RT-PCR) Assessment and Plan (1) Opiate overdose: Status: Acute (2) Asthma exacerbation: Status: Acute Plan hospital d#2 26yo F with asthma, anxiety, depression presenting with dyspnea, admitted for acute asthma exacerbation, CT with GGO concerning for pneumonitis # acute asthma exacerbation - continue steroids, standing/prn nebs # GGO/pneumonitis - check respiratory virus panel - PCT low; will d/c ABX - suspect due to inhalation injury [ED reported pt snorted heroin] # polysusbance abuse - pt denies though she is on Vivitrol. Addiction Medicine + CARE Team consult # opioid overdose - resolved s/p naloxone x 2 doses # mood disorder - continue bupropion, buspirone, lamotrigine, sertraline # VTE ppx - LMWH Quality Stroke Does the patient have a stroke diagnosis?: No VTE Prior VTE?: No VTE Risk Level:: Medical - moderate - high VTE Device Contraindication: Treatment Not Indicated VTE Drug Contraindication: N/A - Med Ordered
[2021-12-07] MEDS: Benzonatate 100 MG CAPSULE PO ×2 (11:37→20:49)
[2021-12-07] MEDS: Albuterol/Iprat 2.5/0.5MG 3 ML AMPUL.NEB INHALE ×2 (11:55→15:47)
[2021-12-07] MEDS: guaiFENesin DM 100/10/5 ML 5 ML SYRUP PO ×2 (12:26→19:43)
[2021-12-07] MEDS: Acetaminophen 325 MG TABLET 650 MG PO ×2 (12:26→17:48)
--- NOTE | 2021-12-07 12:31 | PC.NURSE ---
pt was having some increased SOB and a coughing fit. tessalon provided, and RN requested somehting else to help. Respiratory at bedside giving a duoneb. PRN robitussin ordered and given. Pt also c/o headache, PRN tylenol given at this time.
--- NOTE | 2021-12-07 12:53 | MHC.RECOVSUP ---
Recovery Support note: Patient is a 26 year old British speaking female who presented to [facility] after an accidental overdose. This ticket writer met with patient to discuss substance use and treatment options. Patient declined SUDE, stating that she does not use drugs. This ticket writer explained to patient that she had fentanyl in her system and that she responded to Narcan. Patient became tearful. Patient reports that she bought 3 X[address] off [address] and reports no other drugs use. Discussed with patient the possibility that the Xanax she bought was fake. Discussed the danger inherent in buying medication off the street with patient. Patient acknowledged. Education provided regarding fentanyl testing strips. Patient reports no withdrawal symptoms at this time. Encouraged patient to inform staff if this changes. Discussed case with Velia SWEENEY.
[2021-12-07] MEDS: Enoxaparin Sodium 40 MG/0.4 ML SYRINGE SUBCUT (20:45)
[2021-12-07] MEDS: Azithromycin 500 MG in 0.9 % Sodium Chloride 250 ML 125 MG IV (20:45)
[2021-12-07] MEDS: diphenhydrAMINE HCL 25 MG TABLET 50 MG PO (20:54)
[2021-12-07] MEDS: Melatonin 3 MG TABLET 6 MG PO (20:54)
--- NOTE | 2021-12-07 22:18 | W.PM.IDCN ---
History of Present Illness Data of Consult Service Date: 12/07/21 Requesting physician: Anthony Calhoun Primary Care Provider: Unknown Physician HPI Reason for consult: shortness of breath She presents with three days shortness of breath as well as cough and wheezing. She has screen positive for fentanyl and benzodiazepine. She has asthma. Review of Systems Review of Systems: Yes all other systems are reviewed and are negative PMFSH Past Medical History Medical History Asthma Asthma without acute exacerbation Bronchitis GERD (gastroesophageal reflux disease) Family History Family history: reviewed and not pertinent Social History Social History Alcohol intake: unknown Patient Tobacco Use Status: Never used Tobacco Use of substances other than those prescribed or required for medical reasons: Yes Substance Use Type: Marijuana and Other Last Used Substance: Just Prior to Admission Any prior treatment program specific to substance use: Yes Advance Directives: No Advance Directives Information Provided: No service: No Current occupational status: employed Meds Allergies Allergy/AdvReac Type Severity Reaction Status Date / Time No Known Allergies Allergy Verified 05/03/21 17:00 [No Known Allergies*] Active Medications: Current Medications Acetaminophen (Acetaminophen 325 Mg Tablet) 650 mg PO Q6H PRN PRN Reason: Pain, Mild (Pain Scale 1-3) Last Admin: 12/07/21 17:48 Dose: 650 mg Documented by: Benzonatate (Benzonatate 100 Mg Capsule) 100 mg PO TID PRN PRN Reason: Cough Last Admin: 12/07/21 20:49 Dose: 100 mg Documented by: Bupropion HCl (Bupropion Hcl Xl 300 Mg Tab.Er.24h) 300 mg PO DAILY [facility] Last Admin: 12/07/21 08:19 Dose: 300 mg Documented by: Buspirone HCl (Buspirone Hcl 10 Mg Tablet) 10 mg PO BID [facility] Last Admin: 12/07/21 20:45 Dose: 10 mg Documented by: Diphenhydramine HCl (Diphenhydramine Hcl 25 Mg Tablet) 50 mg PO BEDTIME PRN PRN Reason: Sleep Last Admin: 12/07/21 20:54 Dose: 50 mg Documented by: Enoxaparin Sodium (Enoxaparin Sodium 40 Mg/0.4 Ml Syringe) 40 mg SUBCUT Q24H [facility] Last Admin: 12/07/21 20:45 Dose: 40 mg Documented by: Guaifenesin/Dextromethorphan (Guaifenesin Dm 100/10/5 Ml 5 Ml Syrup) 5 ml PO Q4H PRN PRN Reason: cough Last Admin: 12/07/21 19:43 Dose: 5 ml Documented by: Azithromycin 500 mg/ Sodium (Chloride) 250 mls @ 125 mls/hr IV Q24H [facility] Last Admin: 12/07/21 20:45 Dose: 125 mls/hr Documented by: Lamotrigine (Lamotrigine 25 Mg Tablet) 50 mg PO DAILY [facility] Last Admin: 12/07/21 08:19 Dose: 50 mg Documented by: Levalbuterol HCl (Levalbuterol Hcl 1.25 Mg/0.5 Ml Vial.Neb) 1.25 mg INHALE Q2H PRN PRN Reason: shortnes of breath or wheeze Last Admin: 12/07/21 18:00 Dose: 1.25 mg Documented by: Levalbuterol HCl (Levalbuterol Hcl 1.25 Mg/0.5 Ml Vial.Neb) 1.25 mg INHALE RQ4H WHILE AWAKE [facility] Last Admin: 12/07/21 19:15 Dose: 1.25 mg Documented by: Loratadine (Loratadine 10 Mg Tablet) 10 mg PO DAILY [facility] Last Admin: 12/07/21 08:19 Dose: 10 mg Documented by: Melatonin (Melatonin 3 Mg Tablet) 6 mg PO BEDTIME PRN PRN Reason: Insomnia Last Admin: 12/07/21 20:54 Dose: 6 mg Documented by: Methylprednisolone Sodium Succinate (Methylprednisolone Sod Succ 40 Mg/Ml Vial) 40 mg IVPUSH Q12H [facility] Last Admin: 12/07/21 19:56 Dose: 40 mg Documented by: Non-Formulary Medication (Naltrexone Microspheres) 4 ml IM Q28D [facility] Non-Formulary Medication (Norethindrone-E.Estradiol-Iron [09/26 (28)]) 1 tab PO DAILY [facility] Omeprazole (Omeprazole 20 Mg Capsule.) 20 mg PO BID@0630,1630 [facility] Last Admin: 12/07/21 16:47 Dose: 20 mg Documented by: Pharmacy Consult (Consult Rx Perform Med Rec) 1 each MISCELLANE ONCE PRN PRN Reason: Consult order Senna (Sennosides 8.6 Mg Tablet) 17.2 mg PO BEDTIME PRN PRN Reason: Constipation Sertraline HCl (Sertraline Hcl 100 Mg Tablet) 100 mg PO DAILY [facility] Last Admin: 12/07/21 08:19 Dose: 100 mg Documented by: Sodium Chloride (0.9 % Sodium Chloride Flush 3 Ml Syringe) 3 ml IVFLUSH QSHIFT [facility] Last Admin: 12/07/21 16:55 Dose: 3 ml Documented by: Trazodone HCl (Trazodone Hcl 50 Mg Tablet) 50 mg PO BEDTIME [facility] Last Admin: 12/07/21 20:45 Dose: 50 mg Documented by: Home Medications Medication Instructions Recorded Confirmed Last Taken Type cetirizine 10 mg tablet (Zyrtec) 10 mg PO DAILY 06/06/20 12/06/21 12/06/21 History diphenhydramine HCl 50 mg capsule 50 mg PO BEDTIME PRN 06/06/20 12/06/21 12/05/21 History omeprazole 20 mg capsule,delayed 20 mg PO BID 06/06/20 12/06/21 12/06/21 History release trazodone 50 mg tablet 50 mg PO BEDTIME 06/06/20 12/06/21 12/05/21 History bupropion HCl 300 mg 24 hr tablet, 1 tab PO DAILY 12/06/21 12/06/21 12/06/21 History extended release buspirone 5 mg tablet 10 mg PO BID 12/06/21 12/06/21 12/06/21 History lamotrigine 25 mg tablet 50 mg PO DAILY 12/06/21 12/06/21 12/06/21 History naltrexone microspheres 380 mg 4 ml IM Q4W 12/06/21 12/06/21 Unknown History intramuscular suspension,extended release (Vivitrol) norethindrone 1 mg-ethinyl 1 tab PO DAILY 12/06/21 12/06/21 12/06/21 History estradiol 20 mcg (21)-iron 75 mg (7) tablet (09/26 (28)) sertraline 100 mg tablet 1 tab PO DAILY 12/06/21 12/06/21 12/06/21 History Physical Exam Vital Signs: Vital Signs: Last Vital Signs Temp 98.5 F 12/07/21 18:43 Pulse 130 H 12/07/21 19:18 Resp 15 12/07/21 19:18 BP 107/58 L 12/07/21 18:43 Pulse Ox 95 12/07/21 18:43 Oxygen Flow Rate 3 12/06/21 19:03 BMI result Body Mass Index 23.6 Const: General: cooperative HEENT: Head: Yes normal to inspection Mouth: Normal oral and palatal mucosa present Eyes: General: appearance normal, both eyes and all related structures Resp: Effort & Inspection: audible wheezes Cardio: Rate: regular rate Rhythm: regular rhythm GI: Palpation (GI): Soft to palpation and nontender Extrem: General: Yes normal to inspection Results Labs CBC & Chem 7: 12/07/21 07:45 12/07/21 07:05 Labs: Short CBC 12/07/21 Range/Units 07:45 WBC 19.1 H (4.8-10.8) X10*3/uL Hgb 11.5 L (12.0-16.0) g/dl Hct 34.6 L (37.0-47.0) % Plt Count 298 (160-400) X10*3/uL BMP 12/07/21 07:05 Sodium 140 Potassium 3.5 Chloride 108 Carbon Dioxide 25 BUN 5 L Creatinine 0.63 Calcium 8.3 L Assessment and Plan (1) Asthma exacerbation: Status: Acute She has groundglass lungs and no COVID or obvious bacterial infection. She may have drug or collagen vascular disease or HIV possible. (2) Bronchitis: Status: Acute (3) Opiate overdose: Status: Acute Plan Would check HIV test. Agree with Zithromax. Further management per Pulmonary
[2021-12-08] VITALS (7 sets, daily range): BP systolic 101–125; BP diastolic 53–71; PULSE 78–117; RESP 17–23; TEMP 36.6–37; O2SAT 17–98
[2021-12-08] MEDS: 0.9 % Sodium Chloride Flush 3 ML SYRINGE IVFLUSH ×2 (02:52→07:32)
[2021-12-08] MEDS: Omeprazole 20 MG CAPSULE.DR PO ×2 (06:28→17:03)
[2021-12-08] MEDS: methylPREDNISolone Sod Succ 40 MG/ML VIAL IVPUSH ×2 (07:32→19:58)
[2021-12-08] MEDS: busPIRone HCl 10 MG TABLET PO ×2 (07:33→19:59)
[2021-12-08] MEDS: lamoTRIgine 25 MG TABLET 50 MG PO (07:33)
[2021-12-08] MEDS: guaiFENesin DM 100/10/5 ML 5 ML SYRUP PO ×2 (07:33→22:00)
[2021-12-08] MEDS: Sertraline HCL 100 MG TABLET PO (07:33)
[2021-12-08] MEDS: Loratadine 10 MG TABLET PO (07:33)
[2021-12-08] MEDS: buPROPion HCl XL 300 MG TAB.ER.24H PO (07:33)
[2021-12-08 09:16] LABS: Adenovirus PCR Not Detected (Not Detect.); Bordetella parapertussis PCR Not Detected (Not Detect.); Bordetella pertussis PCR Not Detected (Not Detect.); Chlamydia pneumoniae PCR Not Detected (Not Detect.); Coronavirus 229E PCR Not Detected (Not Detect.); Coronavirus HKU1 PCR Not Detected (Not Detect.); Coronavirus NL63 PCR Not Detected (Not Detect.); Coronavirus OC43 PCR Not Detected (Not Detect.); Human metapneumovirus PCR Not Detected (Not Detect.); Influenza A PCR Not Detected (Not Detect.); Influenza B PCR Not Detected (Not Detect.); Rhino/Enterovirus PCR Not Detected (Not Detect.); SARS-CoV-2 PCR Not Detected (Not Detect.)
[2021-12-08 09:17] LABS: Mycoplasma pneumoniae PCR Not Detected (Not Detect.); Parainfluenza 1 PCR Not Detected (Not Detect.); Parainfluenza 2 PCR Not Detected (Not Detect.); Parainfluenza 3 PCR Not Detected (Not Detect.); Parainfluenza 4 PCR Not Detected (Not Detect.); RSV PCR Not Detected (Not Detect.)
--- NOTE | 2021-12-08 10:45 | PC.NURSE ---
Pt resting in hospital bed, A/ox3, vss. pt remains on room air and tolerating well. provided with prn robitussing for cough this morning. Pt with expiratory wheeze. increased work of breathing with exertion. belongings and call francis within reach.
--- NOTE | 2021-12-08 11:01 | HO.PM.IMPN ---
Subjective Subjective Date of Service: 12/08/21 Interval History: breathing improved but still quite wheezy Review of Systems Review of Systems: Yes all other systems are reviewed and are negative Physical Exam Vital Signs: Vital Signs: Last Vital Signs Temp 98.6 F 12/08/21 06:26 Pulse 117 H 12/08/21 08:31 Resp 23 H 12/08/21 08:31 BP 101/53 L 12/08/21 06:26 Pulse Ox 95 12/08/21 06:26 Oxygen Flow Rate 3 12/06/21 19:03 BMI result Body Mass Index 23.6 Gen: mild resp distress HEENT: sclera anicteric, moist mucus membranes Neck: supple Lungs: tachypneic, diffuse exp wheezing Heart: tachycardic, no murmurs Abd: soft, non-tender, non-distended Ext: no edema Skin: warm/well-perfused Neuro: alert and oriented x3, no focal findings Psych: appropriate affect Objective Data Active Medications Acetaminophen (Acetaminophen 325 Mg Tablet) 650 mg PO Q6H PRN PRN Reason: Pain, Mild (Pain Scale 1-3) Last Admin: 12/07/21 17:48 Dose: 650 mg Documented by: ROSARIO Benzonatate (Benzonatate 100 Mg Capsule) 100 mg PO TID PRN PRN Reason: Cough Last Admin: 12/07/21 20:49 Dose: 100 mg Documented by: ROSARIO Bupropion HCl (Bupropion Hcl Xl 300 Mg Tab.Er.24h) 300 mg PO DAILY [facility] Last Admin: 12/08/21 07:33 Dose: 300 mg Documented by: MARLA Buspirone HCl (Buspirone Hcl 10 Mg Tablet) 10 mg PO BID [facility] Last Admin: 12/08/21 07:33 Dose: 10 mg Documented by: MARLA Diphenhydramine HCl (Diphenhydramine Hcl 25 Mg Tablet) 50 mg PO BEDTIME PRN PRN Reason: Sleep Last Admin: 12/07/21 20:54 Dose: 50 mg Documented by: ROSARIO Enoxaparin Sodium (Enoxaparin Sodium 40 Mg/0.4 Ml Syringe) 40 mg SUBCUT Q24H [facility] Last Admin: 12/07/21 20:45 Dose: 40 mg Documented by: ROSARIO Guaifenesin/Dextromethorphan (Guaifenesin Dm 100/10/5 Ml 5 Ml Syrup) 5 ml PO Q4H PRN PRN Reason: cough Last Admin: 12/08/21 07:33 Dose: 5 ml Documented by: MARLA Azithromycin 500 mg/ Sodium (Chloride) 250 mls @ 125 mls/hr IV Q24H [facility] Last Infusion: 12/08/21 02:53 Dose: 0 mls/hr Documented by: ROSARIO Lamotrigine (Lamotrigine 25 Mg Tablet) 50 mg PO DAILY [facility] Last Admin: 12/08/21 07:33 Dose: 50 mg Documented by: MARLA Levalbuterol HCl (Levalbuterol Hcl 1.25 Mg/0.5 Ml Vial.Neb) 1.25 mg INHALE Q2H PRN PRN Reason: shortnes of breath or wheeze Last Admin: 12/07/21 18:00 Dose: 1.25 mg Documented by: DAMARIS Levalbuterol HCl (Levalbuterol Hcl 1.25 Mg/0.5 Ml Vial.Neb) 1.25 mg INHALE RQ4H WHILE AWAKE [facility] Last Admin: 12/08/21 08:30 Dose: 1.25 mg Documented by: DAMARIS Loratadine (Loratadine 10 Mg Tablet) 10 mg PO DAILY [facility] Last Admin: 12/08/21 07:33 Dose: 10 mg Documented by: MARLA Melatonin (Melatonin 3 Mg Tablet) 6 mg PO BEDTIME PRN PRN Reason: Insomnia Last Admin: 12/07/21 20:54 Dose: 6 mg Documented by: ROSARIO Methylprednisolone Sodium Succinate (Methylprednisolone Sod Succ 40 Mg/Ml Vial) 40 mg IVPUSH Q12H [facility] Last Admin: 12/08/21 07:32 Dose: 40 mg Documented by: MARLA Non-Formulary Medication (Naltrexone Microspheres) 4 ml IM Q28D [facility] Non-Formulary Medication (Norethindrone-E.Estradiol-Iron [09/26 (28)]) 1 tab PO DAILY [facility] Omeprazole (Omeprazole 20 Mg Capsule.) 20 mg PO BID@0630,1630 [facility] Last Admin: 12/08/21 06:28 Dose: 20 mg Documented by: DANIELLE Pharmacy Consult (Consult Rx Perform Med Rec) 1 each MISCELLANE ONCE PRN PRN Reason: Consult order Senna (Sennosides 8.6 Mg Tablet) 17.2 mg PO BEDTIME PRN PRN Reason: Constipation Sertraline HCl (Sertraline Hcl 100 Mg Tablet) 100 mg PO DAILY [facility] Last Admin: 12/08/21 07:33 Dose: 100 mg Documented by: MARLA Sodium Chloride (0.9 % Sodium Chloride Flush 3 Ml Syringe) 3 ml IVFLUSH QSHIFT [facility] Last Admin: 12/08/21 07:32 Dose: 3 ml Documented by: MARLA Trazodone HCl (Trazodone Hcl 50 Mg Tablet) 50 mg PO BEDTIME [facility] Last Admin: 12/07/21 20:45 Dose: 50 mg Documented by: ROSARIO Labs CBC & Chem 7: 12/07/21 07:45 12/07/21 07:05 Labs: Laboratory Results - last 24 hr 12/07/21 14:18 Respiratory Panel Ramirez See Note Adenovirus (Rapid PCR) Not Detected B.pert (TEM-PCR) Not Detected B.parapertussis DNA PCR Not Detected C. pneumoniae DNA (PCR) Not Detected Coronavirus OC43 (PCR) Not Detected Coronavirus HKU1 (PCR) Not Detected Coronavirus 229E (PCR) Not Detected Coronavirus NL63 (PCR) Not Detected Human Metapneumovir PCR Not Detected Influenza A (RT-PCR) Not Detected Influenza B (RT-PCR) Not Detected M. pneumoniae (PCR) Not Detected Parainfluenza 1 (PCR) Not Detected Parainfluenza 2 (PCR) Not Detected Parainfluenza 3 (PCR) Not Detected Parainfluenza 4 (PCR) Not Detected RSV (PCR) Not Detected Entero/Rhino (PCR) Not Detected SARS-CoV-2 RNA (RT-PCR) Not Detected Assessment and Plan (1) Opiate overdose: Status: Acute (2) Asthma exacerbation: Status: Acute Plan hospital d#3 26yo F with asthma, anxiety, depression presenting with dyspnea, admitted for acute asthma exacerbation, CT with GGO concerning for pneumonitis # acute asthma exacerbation - continue steroids d#3, standing/prn nebs # GGO/pneumonitis - respiratory virus panel negative - azithromycin d#3 - suspect due to inhalation injury [ED reported pt snorted heroin] # polysubstance abuse - pt denies though she is on Vivitrol but states she is only on it due to a history of abusing Xanax. Addiction Medicine + CARE Team consult # opioid overdose - resolved s/p naloxone x 2 doses # mood disorder - continue bupropion, buspirone, lamotrigine, sertraline # VTE ppx - LMWH In my clinical judgment, the patient requires continued hospitalization for the following reasons: respiratory distress Quality Stroke Does the patient have a stroke diagnosis?: No VTE Prior VTE?: No VTE Risk Level:: Medical - moderate - high VTE Device Contraindication: Treatment Not Indicated VTE Drug Contraindication: N/A - Med Ordered
[2021-12-08] MEDS: Acetaminophen 325 MG TABLET 650 MG PO (19:59)
[2021-12-08] MEDS: Enoxaparin Sodium 40 MG/0.4 ML SYRINGE SUBCUT (21:50)
[2021-12-08] MEDS: Azithromycin 500 MG in 0.9 % Sodium Chloride 250 ML 125 MG IV (21:51)
[2021-12-08] MEDS: traZODone HCL 50 MG TABLET PO (21:51)
[2021-12-08] MEDS: Melatonin 3 MG TABLET 6 MG PO (21:51)
[2021-12-09 00:02] VITALS: BP 109/65; PULSE 87; RESP 22; TEMP 36.8; O2SAT 98
[2021-12-09] MEDS: 0.9 % Sodium Chloride Flush 3 ML SYRINGE IVFLUSH ×2 (00:04→08:15)
[2021-12-09 04:06] VITALS: BP 108/62; PULSE 72; RESP 18; O2SAT 93
[2021-12-09] MEDS: Omeprazole 20 MG CAPSULE.DR PO (05:56)
[2021-12-09 07:49] VITALS: BP 122/81; PULSE 62; RESP 20; TEMP 36.6; O2SAT 92
[2021-12-09] MEDS: buPROPion HCl XL 300 MG TAB.ER.24H PO (08:15)
[2021-12-09] MEDS: Loratadine 10 MG TABLET PO (08:15)
[2021-12-09] MEDS: Sertraline HCL 100 MG TABLET PO (08:15)
[2021-12-09] MEDS: busPIRone HCl 10 MG TABLET PO (08:15)
[2021-12-09] MEDS: lamoTRIgine 25 MG TABLET 50 MG PO (08:15)
[2021-12-09] MEDS: methylPREDNISolone Sod Succ 40 MG/ML VIAL IVPUSH (08:15)
[2021-12-09 09:04] LABS: HBc Num1 0.05 S/CO (0.00-0.79); HIV AB/AG Nonreactive (Nonreactive); HIV Num 1 0.06 S/CO (0.00-0.99); Hepatitis B Core Antibody Nonreactive (Nonreactive); Hepatitis B Surface Antigen Negative (Negative)
[2021-12-09] MEDS: guaiFENesin DM 100/10/5 ML 5 ML SYRUP PO (09:04)
[2021-12-09 09:08] LABS: HBS Num1 21.24 mIU/mL (0-7.99); ~HepC Num1 0.05 S/CO (0.00-0.79); ~Hepatitis B Surface Antibody REACTIVE (Nonreactive); ~Hepatitis C Antibody Nonreactive (Nonreactive)
--- NOTE | 2021-12-09 09:09 | HO.ADDICTCON ---
History of Present Illness Date of Service: 12/08/21 Chief Complaint: Acute asthma exacerbation Reason for Consult: FLAVIA HPI Narrative: Patient met with Recovery clinician. Reports that they have no substance use disorder, and that they do not require any type of treatment. Addiction consult service will sign off at this time. Diagnostics Vital Signs (24Hr): Vital Signs - 24 hr 12/08/21 12:12 12/08/21 14:24 12/08/21 16:12 Temperature Pulse Rate 92 112 H 99 Respiratory Rate 17 21 H Blood Pressure 119/63 Pulse Oximetry 93 12/08/21 19:52 12/08/21 20:03 12/09/21 00:02 Temperature 97.8 F 98.2 F Pulse Rate 90 80 87 Respiratory Rate 22 H 18 22 H Blood Pressure 125/71 109/65 Pulse Oximetry 93 98 12/09/21 04:06 12/09/21 07:49 Temperature 97.9 F Pulse Rate 72 62 Respiratory Rate 18 20 Blood Pressure 108/62 122/81 Pulse Oximetry 93 92 BMI result Body Mass Index 23.6 Labs Results: 12/07/21 07:45 12/07/21 07:05 Labs: Laboratory Results - last 48 hr 12/07/21 12/07/21 07:05 14:18 Procalcitonin 0.13 Respiratory Panel Ramirez See Note Adenovirus (Rapid PCR) Not Detected B.pert (TEM-PCR) Not Detected B.parapertussis DNA PCR Not Detected C. pneumoniae DNA (PCR) Not Detected Coronavirus OC43 (PCR) Not Detected Coronavirus HKU1 (PCR) Not Detected Coronavirus 229E (PCR) Not Detected Coronavirus NL63 (PCR) Not Detected Human Metapneumovir PCR Not Detected Influenza A (RT-PCR) Not Detected Influenza B (RT-PCR) Not Detected M. pneumoniae (PCR) Not Detected Parainfluenza 1 (PCR) Not Detected Parainfluenza 2 (PCR) Not Detected Parainfluenza 3 (PCR) Not Detected Parainfluenza 4 (PCR) Not Detected RSV (PCR) Not Detected Entero/Rhino (PCR) Not Detected SARS-CoV-2 RNA (RT-PCR) Not Detected Imaging Radiology Impressions: ITS Impressions Chest X-Ray 12/06/21 16:42 IMPRESSION: Unremarkable examination. Chest CTA 12/06/21 21:41 IMPRESSION: Limited study but no central pulmonary embolus seen. Patchy areas of groundglass opacity seen in the right greater than left upper lobes. Viral COVID pneumonitis can give this appearance. VTE: negative Medications Medications Current Medications Acetaminophen (Acetaminophen 325 Mg Tablet) 650 mg PO Q6H PRN PRN Reason: Pain, Mild (Pain Scale 1-3) Last Admin: 12/08/21 19:59 Dose: 650 mg Documented by: Benzonatate (Benzonatate 100 Mg Capsule) 100 mg PO TID PRN PRN Reason: Cough Last Admin: 12/07/21 20:49 Dose: 100 mg Documented by: Bupropion HCl (Bupropion Hcl Xl 300 Mg Tab.Er.24h) 300 mg PO DAILY [facility] Last Admin: 12/09/21 08:15 Dose: 300 mg Documented by: Buspirone HCl (Buspirone Hcl 10 Mg Tablet) 10 mg PO BID [facility] Last Admin: 12/09/21 08:15 Dose: 10 mg Documented by: Diphenhydramine HCl (Diphenhydramine Hcl 25 Mg Tablet) 50 mg PO BEDTIME PRN PRN Reason: Sleep Last Admin: 12/07/21 20:54 Dose: 50 mg Documented by: Enoxaparin Sodium (Enoxaparin Sodium 40 Mg/0.4 Ml Syringe) 40 mg SUBCUT Q24H [facility] Last Admin: 12/08/21 21:50 Dose: 40 mg Documented by: Guaifenesin/Dextromethorphan (Guaifenesin Dm 100/10/5 Ml 5 Ml Syrup) 5 ml PO Q4H PRN PRN Reason: cough Last Admin: 12/09/21 09:04 Dose: 5 ml Documented by: Azithromycin 500 mg/ Sodium (Chloride) 250 mls @ 125 mls/hr IV Q24H [facility] Last Infusion: 12/09/21 00:05 Dose: Infused Documented by: Lamotrigine (Lamotrigine 25 Mg Tablet) 50 mg PO DAILY [facility] Last Admin: 12/09/21 08:15 Dose: 50 mg Documented by: Levalbuterol HCl (Levalbuterol Hcl 1.25 Mg/0.5 Ml Vial.Neb) 1.25 mg INHALE Q2H PRN PRN Reason: shortnes of breath or wheeze Last Admin: 12/07/21 18:00 Dose: 1.25 mg Documented by: Levalbuterol HCl (Levalbuterol Hcl 1.25 Mg/0.5 Ml Vial.Amy) 1.25 mg INHALE RQ4H WHILE AWAKE [facility] Last Admin: 12/09/21 07:47 Dose: Not Given Documented by: Loratadine (Loratadine 10 Mg Tablet) 10 mg PO DAILY [facility] Last Admin: 12/09/21 08:15 Dose: 10 mg Documented by: Melatonin (Melatonin 3 Mg Tablet) 6 mg PO BEDTIME PRN PRN Reason: Insomnia Last Admin: 12/08/21 21:51 Dose: 6 mg Documented by: Methylprednisolone Sodium Succinate (Methylprednisolone Sod Succ 40 Mg/Ml Vial) 40 mg IVPUSH Q12H [facility] Last Admin: 12/09/21 08:15 Dose: 40 mg Documented by: Non-Formulary Medication (Naltrexone Microspheres) 4 ml IM Q28D [facility] Non-Formulary Medication (Norethindrone-E.Estradiol-Iron [09/26 (28)]) 1 tab PO DAILY [facility] Omeprazole (Omeprazole 20 Mg Capsule.) 20 mg PO BID@0630,1630 [facility] Last Admin: 12/09/21 05:56 Dose: 20 mg Documented by: Pharmacy Consult (Consult Rx Perform Med Rec) 1 each MISCELLANE ONCE PRN PRN Reason: Consult order Senna (Sennosides 8.6 Mg Tablet) 17.2 mg PO BEDTIME PRN PRN Reason: Constipation Sertraline HCl (Sertraline Hcl 100 Mg Tablet) 100 mg PO DAILY [facility] Last Admin: 12/09/21 08:15 Dose: 100 mg Documented by: Sodium Chloride (0.9 % Sodium Chloride Flush 3 Ml Syringe) 3 ml IVFLUSH QSHIFT [facility] Last Admin: 12/09/21 08:15 Dose: 3 ml Documented by: Trazodone HCl (Trazodone Hcl 50 Mg Tablet) 50 mg PO BEDTIME [facility] Last Admin: 12/08/21 21:51 Dose: 50 mg Documented by: Allergies Allergies Allergy/AdvReac Type Severity Reaction Status Date / Time No Known Allergies Allergy Verified 05/03/21 17:00 [No Known Allergies*] Assessment & Plan I spent minutes with the patient and/or on the patient floor today, greater than?50% of which was spent counseling/coordinating care. [facility] Past Medical History Medical History Asthma Asthma without acute exacerbation Bronchitis GERD (gastroesophageal reflux disease) Family History Family history: reviewed and not pertinent Social History Social History Alcohol intake: unknown Patient Tobacco Use Status: Never used Tobacco Use of substances other than those prescribed or required for medical reasons: Yes Substance Use Type: Marijuana and Other Last Used Substance: Just Prior to Admission Any prior treatment program specific to substance use: Yes Advance Directives: No Advance Directives Information Provided: No service: No Current occupational status: employed
[2021-12-09 11:08] VITALS: PULSE 73; RESP 16; O2SAT 91
[2021-12-09 11:08] LABS: Glucose, Whole Blood 152 mg/dL (60-115)
--- NOTE | 2021-12-09 11:10 | PC.NURSE ---
Pt resting in hospital bed, PRN robitussin given for cough. Pt medicated per MAR. At one point pt got very upset, started crying. Pt stating that she spoke to her mom and her mom has to go to the court to get full custody of her children. Pt was unconsolable. Pt requesting to speak with the care team. Care team called and made aware. they paid a visit to pt at the bedside and spent a significant amount of time with her. RN to call care trampoline team coach Elsie when pt is going to be discharged. Pt now resting in the hospital bed offering no complaints. VSS. callbell and belongings within reach.
--- NOTE | 2021-12-09 11:25 | PM.DS ---
DS: Providers Provider Date of Service: 12/09/21 Date of admission: 12/06/21 20:29 Date of discharge: 12/09/21 Primary care physician: Jose Smallwood MD Admitting clinician: Anthony Calhoun Attending physician on admission: Anthony Calhoun Consults: 12/06/21 16:39 Consult to Care Team Stat Comment: Reason for consultation: SUDE evaluation 12/06/21 20:29 Consult to Pulmonology Routine Consulting Provider: Venancio King Reason for consultation: Acute asthma exacerbation 12/06/21 20:36 Addiction Medicine Routine Consulting Provider: Lanny Lu Reason for consultation: Opiate abuse 12/06/21 23:33 Consult to Infectious Diseases Routine Consulting Provider: Vicki Garcia Reason for consultation: pneumonitis DS: Diagnosis Discharge Diagnosis (1) Ground glass opacity present on imaging of lung: Status: Acute (2) Acute asthma exacerbation: Status: Acute (3) Pneumonitis: Status: Acute (4) Syncope: Status: Acute (5) Benzodiazepine abuse: Status: Acute DS: Summary Hospital Course Hospital Course: from admission history and physical by Anthony Calhoun, 12/06/21: 26-year-old female with a past medical history of asthma, anxiety, depression, mood disorder, polysubstance abuse presented to the hospital today with chief complaint of shortness of breath.? Patient reported that she has been having shortness of breath over the past 3-4 days.? Which has been gradually worsening.? No significant improvement with the home inhalers; hence decided to come to the ER for further evaluation.? ?complains of dry cough.? Denies any runny nose.? Denies any headaches numbness tingling or focal weakness.? Denies any sputum production.? Denies any GI symptoms.? Review of all other systems is negative except mentioned above Patient mentions to me that she does not use any illicit drugs. ER course: Per ER team patient noted to be in mild respiratory distress; noted have significant expiratory and inspiratory wheezing on presentation; patient was given Solu-Medrol, nebulizations, magnesium; with improvement in the respiratory status.? Patient was tachycardic and mildly tachypneic. ER team also mentioned that patient is U tox is positive for fentanyl, cannabis; also just before entering into the ER patient probably syncopized secondary to the suspected overdose-given Narcan with significant improvement in her mental status.? Patient is currently alert and awake. This 26 year-old woman with asthma, anxiety, and depression presented with dyspnea and was admitted for acute asthma exacerbation. CT of the chest showed ground-glass pneumonitis. Testing for respiratory viruses was negative. She was treated with steroids, azithromycin, and nebulized bronchodilators. Her symptoms improved considerably. As for her syncopal episode that resolved after naloxone administration, she adamantly denied using opioids to the ED physician, the admitting hospitalist, myself, the addiction medicine specialist, and the recovery team. She did admit to buying Xanax off the street and it is possible that the Xanax was laced with fentanyl. She was counseled to avoid buying Xanax or any other substance off of the streets. She is on Vivitrol but states that it is for benzodiazepine use disorder, not opioid use disorder. She will follow up with her Vivitrol prescribing clinic and her primary care doctor upon discharge. She was prescribed 3 days of azithromycin and prednisone and started on Breo as a controller inhaler. Time Spent with Patient Time attestation: Total time spent providing and/or coordinating discharge services: Discharge coordination time: Greater than 30 minutes Quality: Safe Use of Opioids Does Pt have an Active Cancer Diagnosis on the Problem List?: No Quality: Stroke Does the patient have a stroke diagnosis?: No Physical Exam Vital Signs: Vital Signs: Last Vital Signs Temp 97.9 F 12/09/21 07:49 Pulse 73 12/09/21 11:08 Resp 16 12/09/21 11:08 BP 122/81 12/09/21 07:49 Pulse Ox 92 12/09/21 07:49 Oxygen Flow Rate 3 12/06/21 19:03 BMI result Body Mass Index 23.6 Gen: no respiratory distress HEENT: sclera anicteric, moist mucus membranes Neck: supple Lungs: scattered expiratory wheezing with good air entry Heart: regular, no murmurs Abd: soft, non-tender, non-distended Ext: no edema Skin: warm/well-perfused Neuro: alert and oriented x3, no focal findings Psych: appropriate affect DS: Data Data Completed and Pending Completed studies during hospitalization [Text1]: Laboratory Results WBC 19.1 X10*3/uL (4.8-10.8) H 12/07/21 07:45 RBC 3.83 X10*6/uL (4.20-5.50) L 12/07/21 07:45 Hgb 11.5 g/dl (12.0-16.0) L 12/07/21 07:45 Hct 34.6 % (37.0-47.0) L 12/07/21 07:45 MCV 90.3 fL (80.0-98.0) 12/07/21 07:45 MCH 30.0 pg (27.0-33.0) 12/07/21 07:45 MCHC 33.2 g/dl (31.0-35.0) 12/07/21 07:45 RDW 13.5 % (11.0-16.0) 12/07/21 07:45 Plt Count 298 X10*3/uL (160-400) 12/07/21 07:45 MPV 9.3 fL (9.4-12.3) L 12/07/21 07:45 Immature Gran % (Auto) 0.8 % (0.0-0.4) H 12/07/21 07:45 Neut % (Auto) 92.4 % (45-73) H 12/07/21 07:45 Lymph % (Auto) 5.3 % (20-40) L 12/07/21 07:45 [place] % (Auto) 1.3 % (2-11) L 12/07/21 07:45 Eos % (Auto) 0.1 % (0-4) 12/07/21 07:45 Baso % (Auto) 0.1 % (0-2) 12/07/21 07:45 Lymph # (Auto) 1.0 X10*3/uL (1.2-4.9) L 12/07/21 07:45 [place] # (Auto) 0.3 X10*3/uL (0.1-1.2) 12/07/21 07:45 Eos # (Auto) 0.0 X10*3/uL (0.0-0.4) 12/07/21 07:45 Baso # (Auto) 0.0 X10*3/uL (0.0-0.2) 12/07/21 07:45 Abs Immat Gran (auto) 0.15 X10*3/uL (0.00-0.03) H 12/07/21 07:45 Absolute Neuts (auto) 17.7 x10*3/uL (2.0-8.3) H 12/07/21 07:45 Absolute Nucleated RBC 0.000 X10*3/uL (0.0-0.012) 12/07/21 07:45 Nucleated RBC % (auto) 0.0 /100WBC (0.0-0.2) 12/07/21 07:45 Smear Tech's Comments VERIFIED 12/07/21 07:45 D-Dimer High Sensitivty 296 NG/ML 12/06/21 19:46 O2 Saturation 99.0 % 12/06/21 17:45 ABG pH at Pt Temp 7.34 (7.35-7.45) L 12/06/21 17:45 ABG pCO2 at Pt Temp 45 mmHg (32-45) 12/06/21 17:45 ABG pO2 at Pt Temp 161 mmHg (83-108) H 12/06/21 17:45 ABG HCO3 24 mmol/L (22-26) 12/06/21 17:45 ABG Base Excess (Actual) -1.3 mmol/L 12/06/21 17:45 Sodium 140 mmol/L (135-145) 12/07/21 07:05 Potassium 3.5 mmol/L (3.3-5.1) 12/07/21 07:05 Chloride 108 mmol/L (96-108) 12/07/21 07:05 Carbon Dioxide 25 mmol/L (22-29) 12/07/21 07:05 Anion Gap 11 (12-20) L 12/07/21 07:05 BUN 5 mg/dL (9-16) L 12/07/21 07:05 Creatinine 0.63 mg/dL (0.5-1.4) 12/07/21 07:05 Estim Creat Clear Calc 121.7 12/07/21 07:05 Estimated GFR > 60 12/07/21 07:05 POC Glucose 152 mg/dL (60-115) H 12/06/21 15:56 Random Glucose 163 mg/dL (60-115) H 12/07/21 07:05 Calcium 8.3 mg/dL (8.4-10.2) L 12/07/21 07:05 Troponin I High Sens 9.2 ng/L (<3.5-17.0) 12/06/21 16:50 Procalcitonin 0.13 ng/mL 12/07/21 07:05 Urine Test NEGATIVE (NEGATIVE) 12/06/21 18:34 Urine Opiates Screen Not Detected (Not Detect) 12/06/21 18:34 Urine Fentanyl Screen POSITIVE (Not Detect) H 12/06/21 18:34 Ur Barbiturates Screen Not Detected (Not Detect) 12/06/21 18:34 Ur Phencyclidine Scrn Not Detected (Not Detect) 12/06/21 18:34 Ur Amphetamines Screen Not Detected (Not Detect) 12/06/21 18:34 U Benzodiazepines Scrn POSITIVE (Not Detect) H 12/06/21 18:34 Urine Cocaine Screen Not Detected (Not Detect) 12/06/21 18:34 U Marijuana (THC) Screen POSITIVE (Not Detect) H 12/06/21 18:34 Respiratory Panel Ramirez See Note 12/07/21 14:18 Adenovirus (Rapid PCR) Not Detected (Not Detect.) 12/07/21 14:18 B.pert (TEM-PCR) Not Detected (Not Detect.) 12/07/21 14:18 B.parapertussis DNA PCR Not Detected (Not Detect.) 12/07/21 14:18 C. pneumoniae DNA (PCR) Not Detected (Not Detect.) 12/07/21 14:18 Coronavirus OC43 (PCR) Not Detected (Not Detect.) 12/07/21 14:18 Coronavirus HKU1 (PCR) Not Detected (Not Detect.) 12/07/21 14:18 Coronavirus 229E (PCR) Not Detected (Not Detect.) 12/07/21 14:18 Coronavirus NL63 (PCR) Not Detected (Not Detect.) 12/07/21 14:18 Hep Bs Antigen Negative (Negative) 12/08/21 06:06 Hep Bs Antibody REACTIVE (Nonreactive) 12/08/21 06:06 Hep B Core Total Ab Nonreactive (Nonreactive) 12/08/21 06:06 Hepatitis C Ab (EIA) Nonreactive (Nonreactive) 12/08/21 06:06 HIV 1&2 Ab/P24 Ag 4thGn Nonreactive (Nonreactive) 12/08/21 06:06 Human Metapneumovir PCR Not Detected (Not Detect.) 12/07/21 14:18 Influenza A (RT-PCR) Not Detected (Not Detect.) 12/07/21 14:18 Influenza Type A (PCR) NEGATIVE (Negative) 12/06/21 18:34 Influenza B (RT-PCR) Not Detected (Not Detect.) 12/07/21 14:18 Influenza Type B (PCR) NEGATIVE (Negative) 12/06/21 18:34 M. pneumoniae (PCR) Not Detected (Not Detect.) 12/07/21 14:18 Parainfluenza 1 (PCR) Not Detected (Not Detect.) 12/07/21 14:18 Parainfluenza 2 (PCR) Not Detected (Not Detect.) 12/07/21 14:18 Parainfluenza 3 (PCR) Not Detected (Not Detect.) 12/07/21 14:18 Parainfluenza 4 (PCR) Not Detected (Not Detect.) 12/07/21 14:18 RSV (PCR) Not Detected (Not Detect.) 12/07/21 14:18 RSV RNA Qual (PCR) NEGATIVE (Negative) 12/06/21 18:34 Entero/Rhino (PCR) Not Detected (Not Detect.) 12/07/21 14:18 SARS-CoV-2 RNA (RT-PCR) Not Detected (Not Detect.) 12/07/21 14:18 Impressions Chest X-Ray 12/06/21 16:42 IMPRESSION: Unremarkable examination. Chest CTA 12/06/21 21:41 IMPRESSION: Limited study but no central pulmonary embolus seen. Patchy areas of groundglass opacity seen in the right greater than left upper lobes. Viral COVID pneumonitis can give this appearance. VTE: negative Discharge Plan Discharge Patient Disposition: Home, Self-Care Discharge Diagnosis: acute asthma exacerbation ground-glass pneumonitis syncope benzodiazepine abuse Referrals: Jose Smallwood MD [Physician] - 1 Week Discharge Medications: New Breo Ellipta 100-25 mcg/dose blister with device 1 inh inhalation DAILY Qty: 28 0RF prednisone 20 mg tablet 40 mg PO DAILY Qty: 6 0RF azithromycin 250 mg tablet 250 mg PO DAILY Qty: 3 0RF Continued diphenhydramine HCl 50 mg Capsule 50 mg PO BEDTIME PRN (Reason: Sleep) 0RF trazodone 50 mg Tablet 50 mg PO BEDTIME 0RF cetirizine [Zyrtec] 10 mg Tablet 10 mg PO DAILY 0RF omeprazole 20 mg Capsule,Delayed Release(Dr/Ec) 20 mg PO BID 0RF buspirone 5 mg tablet 10 mg PO BID 0RF sertraline 100 mg tablet 1 tab PO DAILY 0RF norethindrone-e.estradiol-iron [09/26 (28)] 1 mg-20 mcg (21)/75 mg (7) tablet 1 tab PO DAILY 0RF lamotrigine 25 mg tablet 50 mg PO DAILY 0RF bupropion HCl 300 mg tablet extended release 24 hr 1 tab PO DAILY 0RF Vivitrol 380 mg suspension,extended rel recon 4 ml IM Q4W 0RF albuterol sulfate 90 mcg/actuation aerosol powdr breath activated 2 inh inhalation QID PRN (Reason: shortness of breath or wheezing) Qty: 1 0RF Discharge Orders: Discharge Order (Routine); Ordered 12/09/21 Ordered By: Matt Velazquez Activity on Discharge: As tolerated Stand Alone Forms: Patient Portal Discharge page Care Plan Goals: recovery from asthma exacerbation Health Concerns: acute asthma exacerbation ground-glass pneumonitis syncope benzodiazepine abuse Plan of Treatment: prednisone 40 mg daily x 3 days, azithromycin 250 mg daily x 3 days after prednisone completed, start controller inhaler Breo Ellipta 1 inhalatino daily use albuterol solution or inhaler for relief of shortness of breath and wheezing avoid buying Xanax or any other drug that is not prescribed to you Assessment: see Discharge Summary Patient Instructions: Asthma (GEN), Benzodiazepine Abuse (DC)
--- NOTE | 2021-12-09 11:43 | MHC.CM.PN ---
Patient has been medically cleared for dc to home today, self care. There is an open DCF case/51A; CM has left a detailed message for DCF Worker/Donita Toth @ [phone], Ext [phone] informing her of Patient's dc to home today.
[2021-12-09 11:56] VITALS: BP 128/71; PULSE 72; RESP 16; TEMP 36.9; O2SAT 94
--- NOTE | 2021-12-09 12:02 | MHC.CARE ---
CARE Team responded to consult request to speak with this patient who was upset about her situation; here for treatment of respiratory distress and DCF became involved due to suspected drug use. Met with patient in Overflow Bed 2, she was alert and oriented, sobbing uncontrollably throughout the meeting. She explained her understanding was that her 3yr old and infant daughters are now in the custody of her mother and that she is not allowed to go there or see the children and that [facility] has mandated she go to a 21 day substance use program. Patient focused on this case being a misunderstanding and she wants desperately to see her children. She reported that she has an outpatient therapist through [facility] (per patient request a message was left with Tianna [phone]). Patient denied any thoughts to harm herself or others and does not need an inpatient psychiatric admission. She was encouraged and supported while she called [facility] denier control operator, and stated she would like to take action today and follow any recommendations they make for her. Patient was somewhat relieved to know that she will have the same Recruitment Consultant that she has for her older daughter who knows her well. [facility] is available to provide patient with recovery resources while she is here and after discharge.
--- NOTE | 2021-12-09 12:05 | MHC.RECOVSUP ---
Recovery Support note: [facility] Donita Grimes contacted this newspaper writer for discharge information. Tox screen emailed to [facility] at their request. This newspaper writer met with patient to provide information on IOP programs. Patient reports she is willing to do anything to get back in contact with her kids. Discussed recovery coaching with patient. A referral will be made by this newspaper writer. Patient aware that she is unable to go to her mother's house to see her kids. Patient has an apartment she can return to. Discussed case with CARE Team.
== END 2021-12-09 13:16 | disposition home or self-care (01) | DRG 812 ==
LOC: HO.ED 18:10 → HO.EDOVER 20:37
PROVIDERS: Emergency Medicine; Admitting Provider Hospitalist; Emergency Provider Emergency Medicine Emergency Medical Services; PCP Nurse Practitioner Family; Visit Provider Family Medicine
DX: T40.2X1A Poisoning by other opioids, accidental (unintentional), initial encounter (principal); J45.902 Unspecified asthma with status asthmaticus; J20.9 Acute bronchitis, unspecified; J70.2 Acute drug-induced interstitial lung disorders; F41.9 Anxiety disorder, unspecified; F32.A Depression, unspecified; R06.03 Acute respiratory distress; Z28.39 Other underimmunization status; Z20.822 Contact with and (suspected) exposure to COVID-19; Z79.51 Long term (current) use of inhaled steroids; Z79.52 Long term (current) use of systemic steroids; Z79.899 Other long term (current) drug therapy
CPT/HCPCS: 0241U; 36415; 71045; 71275; 80048; 80307; 81025; 82803; 82947; 84145; 84484; 85025; 85379; 86704; 86706; 86803; 87340; 87389; 87633; 93005; 94640; 94644; 94645; 96365; 96366; 96372; 96375; 99285; J0171; J0456; J0696; J1650; J1885; J2060; J2920; J2930; J3475; Q0163; Q9967

== ENCOUNTER 2022-01-30 07:19 | Observation (INO) | payer MEDICAID, SELFPAY ==
[2022-01-30] VITALS (12 sets, daily range): BP systolic 105–150; BP diastolic 55–110; PULSE 82–130; RESP 16–26; TEMP 36.6; O2SAT 93–99; BMI 29.4
--- NOTE | 2022-01-30 | ECG_ITS ---
Test Reason : SOB Blood Pressure : / mmHG Vent. Rate : 123 BPM Atrial Rate : 123 BPM P-R Int : 136 ms QRS Dur : 068 ms QT Int : 298 ms P-R-T Axes : 086 061 053 degrees QTc Int : 426 ms Artifact in tracing Sinus tachycardia Limited assessment due to artifact When compared with ECG of 06-DEC-2021 16:11, No significant changes seen Referred By: Kenrick Gorman Electronically Signed By:Gil Garcia
--- NOTE | ~2022-01-30 | CT_ITS ---
EXAMINATION: CT HEAD WITHOUT CONTRAST CLINICAL INFORMATION: Anisocoria, substance use COMPARISON: None TECHNIQUE: Contiguous axial imaging was performed from the skull base to vertex without intravenous administration of contrast. This CT examination was performed using dose optimization techniques as appropriate, variously including the following: *Automated exposure control *Adjustment of mA and/or kV according to patient size (this includes techniques or standardized protocols for targeted exams where dose is matched to indication/reason for exam; i.e. extremities or head) *Use of iterative reconstruction technique DLP: 617 mGy-cm FINDINGS: There is no evidence of acute intracranial hemorrhage or territorial infarction. No abnormal mass effect or midline shift is seen. Harkins to white matter differentiation is well preserved. No extra-axial fluid collections are identified. The ventricles are normal in size. There is no abnormal attenuation within the brain parenchyma. The osseous structures and soft tissues are normal. Partial opacification of the ethmoid sinus. The mastoid air cells and remainder of the visualized portions of the paranasal sinuses are well aerated. CT/CT head/brain wo con IMPRESSION: No CT evidence of acute intracranial hemorrhage or territorial infarction. Ethmoid sinus disease.
--- NOTE | ~2022-01-30 | XR_ITS ---
EXAMINATION: XR CHEST CLINICAL INFORMATION: Shortness of breath COMPARISON: 12/06/2021 TECHNIQUE: Frontal view of the chest was obtained. FINDINGS: No significant abnormality is noted involving the heart, lungs, mediastinum, bony thorax or soft tissues. XR/XR chest 1V IMPRESSION: Unremarkable examination.
[2022-01-30] MEDS: Magnesium Sulfate/H2O 2 GM/50 ML PIGGYBACK IV (07:38)
[2022-01-30] MEDS: methylPREDNISolone Sod Succ 125 MG/2 ML VIAL IVPUSH (07:38)
--- NOTE | 2022-01-30 07:39 | ED.SOB ---
HPI - SOB/Dyspnea General Chief Complaint: Asthma Stated Complaint: ASTHMA ATTACK LAST NIGHT AND THIS AM,96% ON NEB Time Seen by Provider: 01/30/22 07:28 Source: patient and EMS Mode of arrival: EMS Limitations: no limitations History of Present Illness HPI Narrative: 26-year-old female came in for evaluation of shortness of breath. 26-year-old female with history of asthma and drug abuse, presented with difficulty breathing for the past 2 days , EMS called by boyfriend this morning after found her breathing is worsening, patient found by EMS to be hypoxic patient was given epinephrine IM with magnesium and Solu-Medrol at the scene and was given bronchodilator patient was transported to the hospital where she noticed to be still in apparent respiratory distress, patient stated that she used crack by sniffing it last night, patient's symptoms could be also related to heroin withdrawal the last use was 2 days ago. patient stated that she ran out of her asthma medication however patient was able to use friend's bronchodilator via neb. Patient stated that she has been coughing with yellow sputum. Patient last use of heroin was 2 days ago patient only use it nasally never by IV, patient has not been using Vivitrol for over 3 months now, patient is declining Suboxone today. Related Data Home Medications Medication Instructions Recorded Confirmed cetirizine 10 mg tablet (Zyrtec) 10 mg PO DAILY 06/06/20 12/06/21 diphenhydramine HCl 50 mg capsule 50 mg PO BEDTIME PRN 06/06/20 12/06/21 omeprazole 20 mg capsule,delayed 20 mg PO BID 06/06/20 12/06/21 release trazodone 50 mg tablet 50 mg PO BEDTIME 06/06/20 12/06/21 bupropion HCl 300 mg 24 hr tablet, 1 tab PO DAILY 12/06/21 12/06/21 extended release buspirone 5 mg tablet 10 mg PO BID 12/06/21 12/06/21 lamotrigine 25 mg tablet 50 mg PO DAILY 12/06/21 12/06/21 naltrexone microspheres 380 mg 4 ml IM Q4W 12/06/21 12/06/21 intramuscular suspension,extended release (Vivitrol) norethindrone 1 mg-ethinyl 1 tab PO DAILY 12/06/21 12/06/21 estradiol 20 mcg (21)-iron 75 mg (7) tablet ( FE 09/26 (28)) sertraline 100 mg tablet 1 tab PO DAILY 12/06/21 12/06/21 Previous Rx's Medication Instructions Recorded albuterol sulfate 90 mcg/actuation 2 inh INHALATION QID PRN #1 units 12/09/21 breath activated powder inhaler azithromycin 250 mg tablet 250 mg PO DAILY #3 tab 12/09/21 fluticasone furoate 100 1 inh INHALATION DAILY #28 ea 12/09/21 mcg-vilanterol 25 mcg/dose inhalation powder (Breo Ellipta) prednisone 20 mg tablet 40 mg PO DAILY #6 tab 12/09/21 Allergies Allergy/AdvReac Type Severity Reaction Status Date / Time No Known Allergies Allergy Verified 05/03/21 17:00 [No Known Allergies*] Review of Systems Review of Systems: all other systems are reviewed and are negative Constitutional: Reports as per HPI and Reports no additional constitutional complaints Eyes: Reports as per HPI and Reports no additional eye complaints Reports system reviewed and no additional complaints, except as documented Cardiovascular: Reports as per HPI and Reports no additional cardiovascular complaints Respiratory: Reports as per HPI and Reports no additional respiratory complaints Gastrointestinal: Reports as per HPI and Reports no additional gastrointestinal complaints Genitourinary: Reports no additional female genitourinary complaints Musculoskeletal: Reports no additional musculoskeletal complaints Skin/Breast: Reports system reviewed and no additional complaints, except as docu Psychiatric: Reports no additional psychiatric complaints Endocrine: Reports no additional endocrine complaints Hematologic/Lymphatic: Reports no additional hematologic/lymphatic complaints Allergic/Immunologic: Reports no additional allergic/immunologic complaints Reports system reviewed and no additional complaints, except as documented and Reports Abnormal speech present [facility] Past Medical History Medical History Asthma Asthma exacerbation Asthma with status asthmaticus Asthma without acute exacerbation Bronchitis GERD (gastroesophageal reflux disease) Social History Social History Alcohol intake: unknown Patient Tobacco Use Status: Current everyday Tobacco user Use of substances other than those prescribed or required for medical reasons: Yes Substance Use Type: Heroin Last Used Substance: Days (ago) Any prior treatment program specific to substance use: No Advance Directives: No Advance Directives Information Provided: No service: No Current occupational status: employed Physical Exam Vital Signs: Vital Signs: Last Vital Signs Pulse 99 05/26/22 09:42 Resp 16 01/30/22 09:42 BP 122/57 L 01/30/22 09:42 Pulse Ox 98 01/30/22 07:41 Oxygen Flow Rate 6 01/30/22 07:39 BMI result Body Mass Index 29.4 vital signs have been reviewed as appeared to be correct. Blood pressure normal. Heart rate elevated. Respiration rate normal. Temperature normal. Oxygen saturation normal. Appearance: Alert. Oriented X3. acute respiratory distress, tripod position, diaphoretic, unable to talk in the full sentence. Head: Normal external exam. Normocephalic. Atraumatic. No Ordonez signs noted. No raccoon eyes noted Eyes: PERRLA. EOMI. Conjunctiva and sclera normal. Eyelids normal. ENT: TM's Normal. Pharynx normal. Uvula midline. Moist mucous membranes. No trismus noted. No drooling noted. No muffled voice noted. Neck: Normal inspection. Neck supple. FROM. No adenopathy. Thyroid Normal. No meningeal signs. No neck mass noted. CVS: Normal heart rate and rhythm. Heart sound normal. No murmurs noted. Pulses normal throughout. Respiratory: No respiratory distress. Painless inspiration. Tachypneic, diffuse respiratory wheezing with decrease air entry bilaterally with prolonged expiration.. Chest nontender. No accessory muscle usage noted or decreased air movement noted. Abdomen: Soft and nontender. Bowel sounds normal in all 4 quadrants. No distention noted. No organomegaly noted. No visible injury noted. Back: No CVA tenderness. Full range of motion noted. Skin: Skin warm and dry. Normal skin color. Normal skin turgor. No rashes/lesions/lacerations noted. Extremities: No lower extremity edema. Extremities exhibit normal range of motion. Extremities nontender. Neuro: Oriented X 3. Cranial nerve exam: II-XII are grossly intact No motor deficit. No sensory deficit. Reflexes normal. Course Reevaluation(s) Reevaluation #1: 26-year-old female with history of asthma presented with asthma exacerbation, with question of opioid withdrawal patient had similar presentation 2 months ago. Because patient is not taking Vivitrol, and also declining Suboxone for her withdrawal symptoms patient received 5 mg of oxycodone p.o. along with bronchodilator and Solu-Medrol with magnesium and patient started to feel and look better. Time: 08:01 Reevaluation #2: Patient feels and looks better now able to talk in a full sentence now, vital sign has improved breathing at 16 breaths per minute. Heroin withdrawal by history precipitate patient's symptoms patient is declining Suboxone patient was given 5 mg of oxycodone to help with patient's withdrawal symptoms. No sign of pneumonia on the x-ray. Time: 09:56 MDM - SOB/Dyspnea Lab Data Attestation: I reviewed the patient's lab results. Result diagrams: 01/30/22 08:16 01/30/22 08:16 Labs: Lab Results 01/30/22 01/30/22 01/30/22 Range/Units 08:16 08:16 08:16 WBC 16.6 H (4.8-10.8) X10*3/uL RBC 4.63 D (4.20-5.50) X10*6/uL Hgb 13.5 (12.0-16.0) g/dl Hct 41.2 (37.0-47.0) % MCV 89.0 (80.0-98.0) fL MCH 29.2 (27.0-33.0) pg MCHC 32.8 (31.0-35.0) g/dl RDW 12.4 (11.0-16.0) % Plt Count 343 (160-400) X10*3/uL MPV 9.2 L (9.4-12.3) fL Sodium 141 (135-145) mmol/L Potassium 3.8 (3.3-5.1) mmol/L Chloride 107 (96-108) mmol/L Carbon Dioxide 20 L (22-29) mmol/L Anion Gap 18 (12-20) BUN 9 D (9-16) mg/dL Creatinine 0.87 (0.5-1.4) mg/dL Estim Creat Clear Calc 77.4 Estimated GFR > 60 Random Glucose 252 H (60-115) mg/dL Calcium 8.9 D (8.4-10.2) mg/dL Lipase 34 (8-78) U/L Influenza Type A (PCR) NEGATIVE (Negative) Influenza Type B (PCR) NEGATIVE (Negative) RSV RNA Qual (PCR) NEGATIVE (Negative) SARS-CoV-2 RNA (RT-PCR) NEGATIVE (Negative) Imaging Data Chest x-ray: Attestation: I personally reviewed and interpreted this imaging study as follows: Radiologist's impression: No acute patho ECG Data Attestation: I personally reviewed and interpreted this ECG as follows: Interpretation: Sinus tachycardia at 123 beats per minutes, normal axis, normal intervals, no significant ST-T changes. Discharge Plan Discharge Clinical Impression: Acute respiratory distress, Acute asthmatic bronchitis, Heroin withdrawal Patient Disposition: Admitted As Inpatient Prescriptions: No Action diphenhydramine HCl 50 mg Capsule 50 mg PO BEDTIME PRN (Reason: Sleep) 0RF trazodone 50 mg Tablet 50 mg PO BEDTIME 0RF cetirizine [Zyrtec] 10 mg Tablet 10 mg PO DAILY 0RF omeprazole 20 mg Capsule,Delayed Release(Dr/Ec) 20 mg PO BID 0RF buspirone 5 mg tablet 10 mg PO BID 0RF sertraline 100 mg tablet 1 tab PO DAILY 0RF norethindrone-e.estradiol-iron [Junel FE 09/26 (28)] 1 mg-20 mcg (21)/75 mg (7) tablet 1 tab PO DAILY 0RF lamotrigine 25 mg tablet 50 mg PO DAILY 0RF bupropion HCl 300 mg tablet extended release 24 hr 1 tab PO DAILY 0RF Vivitrol 380 mg suspension,extended rel recon 4 ml IM Q4W 0RF Breo Ellipta 100-25 mcg/dose blister with device 1 inh inhalation DAILY Qty: 28 0RF prednisone 20 mg tablet 40 mg PO DAILY Qty: 6 0RF albuterol sulfate 90 mcg/actuation aerosol powdr breath activated 2 inh inhalation QID PRN (Reason: shortness of breath or wheezing) Qty: 1 0RF azithromycin 250 mg tablet 250 mg PO DAILY Qty: 3 0RF
[2022-01-30] MEDS: Albuterol/Iprat 2.5/0.5MG 3 ML AMPUL.NEB INHALE ×4 (07:40→19:56)
[2022-01-30] MEDS: Albuterol Sulfate (0.083%) 2.5 MG/3 ML VIAL.NEB 5 MG INHALE (07:40)
[2022-01-30] MEDS: Albuterol Sulfate (0.083%) 2.5 MG/3 ML VIAL.NEB INHALE (07:43)
[2022-01-30 08:24] LABS: Basophils Absolute Auto 0.1 X10*3/uL (0.0-0.2); Basophils Percent Auto 0.7 % (0-2); Eosinophils Absolute Auto 3.4 X10*3/uL (0.0-0.4); Eosinophils Percent Auto 20.3 % (0-4); Hematocrit 41.2 % (37.0-47.0); Hemoglobin 13.5 g/dl (12.0-16.0); Imm Gran Abs Auto 0.09 X10*3/uL (0.00-0.03); Imm Gran Pct Auto 0.5 % (0.0-0.4); Lymphocytes Absolute Auto 2.2 X10*3/uL (1.2-4.9); Lymphocytes Percent Auto 13.2 % (20-40); MANUAL DIFF FLAG SCAN; Mean Corpuscular HGB Conc 32.8 g/dl (31.0-35.0); Mean Corpuscular Hemoglobin 29.2 pg (27.0-33.0); Mean Platelet Volume 9.2 fL (9.4-12.3); Monocytes Absolute Auto 0.6 X10*3/uL (0.1-1.2); Monocytes Percent Auto 3.7 % (2-11); Neutrophils Absolute Auto 10.2 x10*3/uL (2.0-8.3); Neutrophils Percent Auto 61.6 % (45-73); Platelet Count 343 X10*3/uL (160-400); Red Blood Count 4.63 X10*6/uL (4.20-5.50); Red Cell Distribution Width 12.4 % (11.0-16.0); SCAN SMEAR FLAG 1; White Blood Count 16.6 X10*3/uL (4.8-10.8)
[2022-01-30 08:49] LABS: Anion Gap 18 (12-20); Blood Urea Nitrogen 9 mg/dL (9-16); Calcium 8.9 mg/dL (8.4-10.2); Carbon Dioxide 20 mmol/L (22-29); Chloride 107 mmol/L (96-108); Creatinine Clr Calc Pharmacy 77.4; Estimated Glomerular Filt Rate > 60; Glucose Random 252 mg/dL (60-115); Lipase 34 U/L (8-78); Potassium 3.8 mmol/L (3.3-5.1); Sodium 141 mmol/L (135-145)
[2022-01-30 09:16] LABS: Influenza A PCR NEGATIVE (Negative); Influenza B PCR NEGATIVE (Negative); Resp Syncy Virus RNA Qual PCR NEGATIVE (Negative); SARS COV2 PCR INHOUSE NEGATIVE (Negative)
[2022-01-30] MEDS: oxyCODONE HCl Immed Release 5 MG TABLET PO (09:59)
[2022-01-30 10:18] LABS: SLIDE REVIEW VERIFIED
--- NOTE | 2022-01-30 11:12 | PHA.MEDREC ---
Pharmacy Consult ? Medication Reconciliation Pharmacy has completed the medication reconciliation. Patient confirmed medications. Patient reports she no longer takes i. Patient reports she is out of her inhalers and albuterol solution however does have a nebulizer at home. She reports she is about 3 week late on the Vivtrol, but plans to restart it. It has been a couple of days since she has taken her medicaitons. Susan Putnam, CandidoD
--- NOTE | 2022-01-30 12:19 | P.HPHOSP_ITS ---
History of Present Illness Date of Service: 01/30/22 Attending physician on admission: Kenrick Gorman Chief Complaint: asthma excerebation 26 year-old woman with asthma, anxiety, and depression presented with dyspnea and was admitted for acute asthma exacerbation-she was here last month with the similar presentation. Brought by her boyfriend because she was having difficulty breathing from 2 days also has some clear phlegm. ?EMS called by boyfriend this morning after found her? breathing is worsening, patient was found hypoxic patient was given epinephrine IM with magnesium and Solu-Medrol at the scene and was given bronchodilator . Patient says that she was smoking crack yesterday-probably worsen symptoms due to that, patient stated that she ran out of her asthma medication however patient was able to use friend's bronchodilator via neb. Patient stated that she has been coughing with clear sputum. In ED: Patient received nebs, steroids, magnesium-shortness of breath seems to be improving afterwards, but considering still weak and short of breath as well as has significant wheezing-ED requested admission for overnight observation for asthma exacerbation. Chest x-ray negative. Leukocytosis is better than before. No fever. Tachycardia and tachypnea probably related to anxiety, cocaine use. Review of Systems Review of Systems: As above. [facility] Medical History Asthma Asthma exacerbation Asthma with status asthmaticus Asthma without acute exacerbation Bronchitis GERD (gastroesophageal reflux disease) Pertinent family history: Denies any family history of asthma or any lung disease. Social History Alcohol intake: unknown Patient Tobacco Use Status: Current everyday Tobacco user Use of substances other than those prescribed or required for medical reasons: Yes Substance Use Type: Heroin Last Used Substance: Days (ago) Any prior treatment program specific to substance use: No Advance Directives: No Advance Directives Information Provided: No service: No Current occupational status: employed Meds Allergies Allergy/AdvReac Type Severity Reaction Status Date / Time No Known Allergies Allergy Verified 05/03/21 17:00 [No Known Allergies*] Active Medications: Current Medications Albuterol/Ipratropium (Albuterol/Iprat 2.5/0.5mg 3 Ml Ampul.Neb) 3 ml INHALE Q3H PRN PRN Reason: sob Albuterol/Ipratropium (Albuterol/Iprat 2.5/0.5mg 3 Ml Ampul.Neb) 3 ml INHALE Q4H [facility] Bupropion HCl (Bupropion Hcl Xl 300 Mg Tab.Er.24h) 300 mg PO DAILY [facility] Buspirone HCl (Buspirone Hcl 10 Mg Tablet) 10 mg PO BID [facility] Clonazepam (Clonazepam 0.5 Mg Tablet) 0.5 mg PO DAILY PRN PRN Reason: anxiety attack Diphenhydramine HCl (Diphenhydramine Hcl 25 Mg Tablet) 50 mg PO BEDTIME PRN PRN Reason: Sleep Hydroxyzine HCl (Hydroxyzine Hcl 25 Mg Tablet) 25 - 50 mg PO BID PRN PRN Reason: anxiety Loratadine (Loratadine 10 Mg Tablet) 10 mg PO DAILY [facility] Methylprednisolone Sodium Succinate (Methylprednisolone Sod Succ 40 Mg/Ml Vial) 40 mg IVPUSH BID [facility] Non-Formulary Medication (Norethindrone-E.Estradiol-Iron [09/26 ()]) 1 tab PO DAILY [facility] Omeprazole (Omeprazole 20 Mg Capsule.Dr) 20 mg PO BID@0630,1630 [facility] Ondansetron HCl (Ondansetron Odt 4 Mg Tab.Rapdis) 4 mg TRANSLINGU Q8H PRN PRN Reason: nausea Sertraline HCl (Sertraline Hcl 50 Mg Tablet) 150 mg PO DAILY [facility] Sodium Chloride (0.9 % Sodium Chloride Flush 3 Ml Syringe) 3 ml IVFLUSH QSHIFT [facility] Trazodone HCl (Trazodone Hcl 50 Mg Tablet) 50 mg PO BEDTIME [facility] Home Medications Medication Instructions Recorded Confirmed Last Taken Type cetirizine 10 mg tablet (Zyrtec) 10 mg PO DAILY 06/06/20 01/30/22 12/06/21 History diphenhydramine HCl 50 mg capsule 50 mg PO BEDTIME PRN 06/06/20 01/30/22 12/05/21 History omeprazole 20 mg capsule,delayed 20 mg PO BID 06/06/20 01/30/22 12/06/21 History release trazodone 50 mg tablet 50 mg PO BEDTIME 06/06/20 01/30/22 12/05/21 History bupropion HCl 300 mg 24 hr tablet, 1 tab PO DAILY 12/06/21 01/30/22 12/06/21 History extended release naltrexone microspheres 380 mg 4 ml IM Q4W 12/06/21 01/30/22 12/12/21 History intramuscular suspension,extended release (Vivitrol) norethindrone 1 mg-ethinyl 1 tab PO DAILY 12/06/21 01/30/22 12/06/21 History estradiol 20 mcg (21)-iron 75 mg (7) tablet (June FE 09/26 ()) sertraline 100 mg tablet 150 mg PO DAILY 12/06/21 01/30/22 12/06/21 History buspirone 10 mg tablet 10 mg PO BID 01/30/22 01/30/22 Unknown History clonazepam 0.5 mg tablet 1 tab PO DAILY PRN 01/30/22 01/30/22 Unknown History hydroxyzine HCl 25 mg tablet 1 - 2 tab PO BID PRN 01/30/22 01/30/22 Unknown History ibuprofen 600 mg tablet (IBU) 1 tab PO BID PRN 01/30/22 01/30/22 Unknown History ondansetron HCl 4 mg tablet 1 tab PO Q8-12H PRN 01/30/22 01/30/22 Unknown History Physical Exam Vital Signs and Narrative: Vital Signs: Last Vital Signs Pulse 82 01/30/22 10:01 Resp 16 01/30/22 10:01 BP 122/57 L 01/30/22 09:42 Pulse Ox 96 01/30/22 10:01 Oxygen Flow Rate 6 01/30/22 07:39 BMI result Body Mass Index 29.4 Appearance: Alert.? Oriented X3.? sob cvs: rrr, [id number] , no murmur res: Air entry diminished, bilateral wheezing abd: no rebound or guarding ,nt, bs present. ext pulses present , no cyanosis ,Gait well balanced well coordinated. neuro: axo3 , nonfocal. Results Labs CBC and Chem 7: 01/30/22 08:16 01/30/22 08:16 Labs: Laboratory Results - last 24 hr 01/30/22 01/30/22 01/30/22 08:16 08:16 08:16 MCV 89.0 MCH 29.2 MCHC 32.8 RDW 12.4 Plt Count 343 MPV 9.2 L Immature Gran % (Auto) 0.5 H Neut % (Auto) 61.6 Lymph % (Auto) 13.2 L Creek % (Auto) 3.7 Eos % (Auto) 20.3 H Baso % (Auto) 0.7 Lymph # (Auto) 2.2 Creek # (Auto) 0.6 Eos # (Auto) 3.4 H Baso # (Auto) 0.1 Abs Immat Gran (auto) 0.09 H Absolute Neuts (auto) 10.2 H Absolute Nucleated RBC 0.000 Nucleated RBC % (auto) 0.0 Smear Tech's Comments VERIFIED Anion Gap 18 Estim Creat Clear Calc 77.4 Estimated GFR > 60 Random Glucose 252 H Calcium 8.9 D Lipase 34 Influenza Type A (PCR) NEGATIVE Influenza Type B (PCR) NEGATIVE RSV RNA Qual (PCR) NEGATIVE SARS-CoV-2 RNA (RT-PCR) NEGATIVE ECG Attestation: I personally reviewed and interpreted this ECG as follows: (sinus tachycardia) Imaging Radiologist's Impressions: Impressions Chest X-Ray 01/30/22 08:55 IMPRESSION: Unremarkable examination. Assessment and Plan (1) Acute asthma exacerbation: Status: Acute (2) Cocaine abuse: Status: Acute Plan 26yo F with asthma, anxiety, depression presenting with dyspnea, admitted for? acute asthma exacerbation, CT with GGO concerning for pneumonitis acute asthma exacerbation possible sec to cocaine use. - continue steroids , standing/prn nebs,azithromycin for bronchitis polysubstance abuse - pt denies though she is on Vivitrol but states she is only on it due to a history of abusing Xanax in the past.declined ? Addiction Medicine + CARE Team consult opioid use: she used cocaine use refused subaxone . mood disorder - continue bupropion, buspirone, lamotrigine, sertraline VTE ppx - LMWH above management discussed the patient in detail length she understand and in agreement with the above plan, time spent 70 minute, patient full code, Considering shortness of breaths says somewhat improving may need overnight observation if does not improve may need 2 midnight stays. Quality Stroke Does the patient have a stroke diagnosis?: No VTE Prior VTE?: No VTE Risk Level:: Medical - moderate - high VTE Device Contraindication: N/A - Device Ordered VTE Drug Contraindication: N/A - Med Ordered
[2022-01-30] MEDS: Sertraline HCL 50 MG TABLET 150 MG PO (13:13)
[2022-01-30] MEDS: Loratadine 10 MG TABLET PO (13:15)
[2022-01-30] MEDS: busPIRone HCl 10 MG TABLET PO ×2 (13:15→20:25)
[2022-01-30] MEDS: buPROPion HCl XL 300 MG TAB.ER.24H PO (13:21)
--- NOTE | 2022-01-30 13:21 | PC.NURSE ---
Pt asleep, awakes to voice. Work of breathing normal and pt verbally reports feeling better. Upon giving home meds pt noted with left pupil dilation, PERRLA but sluggish. right pupil 3mm, PERRLA, other neuros are intact. Dr Gorman aware, plan for head CT. Will hold lovenox pending CT scan, pt agreeable/aware
[2022-01-30 15:10] LABS: Appearance Urine CLOUDY; Color Urine YELLOW; Glucose Urine UA NEG (NEG); Leukocyte Esterase Urine NEG (NEG); Nitrite Urine NEG (NEG); PH 5.5 (5.0-8.0); Specific Gravity - Urine >= 1.030 (1.005-1.025); UACC Culture Trigger NO; Urine Blood NEG (NEG); Urine Ketones NEG (NEG); Urine Protein 1+ MG/DL (NEG-TRACE)
[2022-01-30 15:12] LABS: UPreg QC Valid YES; Urine Pregnancy NEGATIVE (NEGATIVE)
[2022-01-30 15:36] LABS: Amorphous Sediment Urine 3+ /LPF; RBC Urine 0 /HPF (0); Squamous Epithelial Cell Urine 2+ /LPF; WBC Urine 0 /HPF (0-4)
[2022-01-30] MEDS: 0.9 % Sodium Chloride Flush 3 ML SYRINGE IVFLUSH (16:12)
[2022-01-30] MEDS: Omeprazole 20 MG CAPSULE.DR PO (16:13)
--- NOTE | 2022-01-30 18:45 | PC.NURSE ---
Pt resp remains stable at this time. Inquiring about leaving however pt made aware of current status, needing 02 and unstable to be discharged at this time. Pt thinking about what she will do at this time. Dinner tray provided.
[2022-01-30] MEDS: clonazePAM 0.5 MG TABLET PO (20:25)
[2022-01-30] MEDS: methylPREDNISolone Sod Succ 40 MG/ML VIAL IVPUSH (20:25)
[2022-01-30] MEDS: traZODone HCL 50 MG TABLET PO (20:25)
--- NOTE | 2022-01-30 22:49 | MHC.CM.PN ---
SERENITY 01/30. Declines HCP. Vax x2/Moderna. Contact- Crispin Johansen ([phone]). Lives with . Uses nebulizer. No services. Hx substance misuse. Will need CARE team/recovery. D/C plan: Home w/o services. to transport home. CM to follow for d/c needs.
[2022-01-31] VITALS (7 sets, daily range): BP systolic 97–116; BP diastolic 42–65; PULSE 74–93; RESP 16–20; TEMP 36.6–36.8; O2SAT 90–97
--- NOTE | 2022-01-31 01:30 | PC.NURSE ---
Assumed care of pt Pt moved to overflow bed 5 Pt tolerating 2L NC with O2 93-94%. Pt denies any SOB NAD Will continue to monitor
[2022-01-31] MEDS: Omeprazole 20 MG CAPSULE.DR PO ×2 (05:50→16:23)
[2022-01-31] MEDS: 0.9 % Sodium Chloride Flush 3 ML SYRINGE IVFLUSH ×2 (07:16→16:23)
[2022-01-31] MEDS: Albuterol/Iprat 2.5/0.5MG 3 ML AMPUL.NEB INHALE ×3 (08:22→16:31)
[2022-01-31] MEDS: busPIRone HCl 10 MG TABLET PO (08:26)
[2022-01-31] MEDS: methylPREDNISolone Sod Succ 40 MG/ML VIAL IVPUSH (08:26)
[2022-01-31] MEDS: buPROPion HCl XL 300 MG TAB.ER.24H PO (08:26)
[2022-01-31] MEDS: Sertraline HCL 50 MG TABLET 150 MG PO (08:26)
[2022-01-31] MEDS: Loratadine 10 MG TABLET PO (08:27)
--- NOTE | 2022-01-31 09:07 | HO.PM.IMPN ---
Subjective Subjective Date of Service: 01/31/22 Interval History: asthma execerebation, cocaine use,anisocoria Review of Systems sob slightly better but still short of breath with minimal sitting up as well as talking in slow. Has nonproductive cough Physical Exam Vital Signs: Vital Signs: Last Vital Signs Temp 97.8 F 01/31/22 07:17 Pulse 79 01/31/22 08:22 Resp 18 01/31/22 08:22 BP 97/42 L 01/31/22 07:17 Pulse Ox 95 01/31/22 07:17 Oxygen Flow Rate 6 01/30/22 07:39 BMI result Body Mass Index 29.4 Appearance: Alert.? Oriented X3.? sob cvs: rrr, [id number] , no murmur res:? Air entry tight, bilateral wheezing abd: no rebound or guarding ,nt, bs present. ext pulses present , no cyanosis . neuro: axo3 , nonfocal. Objective Data Active Medications Albuterol/Ipratropium (Albuterol/Iprat 2.5/0.5mg 3 Ml Ampul.Neb) 3 ml INHALE Q3H PRN PRN Reason: sob Albuterol/Ipratropium (Albuterol/Iprat 2.5/0.5mg 3 Ml Ampul.Neb) 3 ml INHALE Q4H [facility] Last Admin: 01/31/22 08:22 Dose: 3 ml Documented by: JESUS Bupropion HCl (Bupropion Hcl Xl 300 Mg Tab.Er.24h) 300 mg PO DAILY [facility] Last Admin: 01/31/22 08:26 Dose: 300 mg Documented by: ELVIRA Buspirone HCl (Buspirone Hcl 10 Mg Tablet) 10 mg PO BID [facility] Last Admin: 01/31/22 08:26 Dose: 10 mg Documented by: ELVIRA Clonazepam (Clonazepam 0.5 Mg Tablet) 0.5 mg PO DAILY PRN PRN Reason: anxiety attack Last Admin: 01/30/22 20:25 Dose: 0.5 mg Documented by: JL Diphenhydramine HCl (Diphenhydramine Hcl 25 Mg Tablet) 50 mg PO BEDTIME PRN PRN Reason: Sleep Enoxaparin Sodium (Enoxaparin Sodium 40 Mg/0.4 Ml Syringe) 40 mg SUBCUT Q24H [facility] Last Admin: 01/30/22 13:24 Dose: Not Given Documented by: WILEY Non-Admin Reason: held pending ct scan Hydroxyzine HCl (Hydroxyzine Hcl 25 Mg Tablet) 25 - 50 mg PO BID PRN PRN Reason: anxiety Lactated Ringer's (Lr) 1,000 mls @ 100 mls/hr IVCONT .Q10H [facility] Loratadine (Loratadine 10 Mg Tablet) 10 mg PO DAILY [facility] Last Admin: 01/31/22 08:27 Dose: 10 mg Documented by: ELVIRA Methylprednisolone Sodium Succinate (Methylprednisolone Sod Succ 40 Mg/Ml Vial) 40 mg IVPUSH BID [facility] Last Admin: 01/31/22 08:26 Dose: 40 mg Documented by: ELVIRA Non-Formulary Medication (Norethindrone-E.Estradiol-Iron [09/26 ()]) 1 tab PO DAILY [facility] Omeprazole (Omeprazole 20 Mg Capsule.Dr) 20 mg PO BID@0630,1630 [facility] Last Admin: 01/31/22 05:50 Dose: 20 mg Documented by: CHRISTA Ondansetron HCl (Ondansetron Odt 4 Mg Tab.Rapdis) 4 mg TRANSLINGU Q8H PRN PRN Reason: nausea Sertraline HCl (Sertraline Hcl 50 Mg Tablet) 150 mg PO DAILY [facility] Last Admin: 01/31/22 08:26 Dose: 150 mg Documented by: ELVIRA Sodium Chloride (0.9 % Sodium Chloride Flush 3 Ml Syringe) 3 ml IVFLUSH QSHIFT [facility] Last Admin: 01/31/22 07:16 Dose: 3 ml Documented by: ELVIRA Trazodone HCl (Trazodone Hcl 50 Mg Tablet) 50 mg PO BEDTIME [facility] Last Admin: 01/30/22 20:25 Dose: 50 mg Documented by: JL Labs CBC & Chem 7: 01/30/22 08:16 01/30/22 08:16 Labs: Laboratory Results - last 24 hr 01/30/22 01/30/22 01/30/22 08:16 08:16 15:04 Immature Gran % (Auto) 0.5 H Neut % (Auto) 61.6 Lymph % (Auto) 13.2 L Maury % (Auto) 3.7 Eos % (Auto) 20.3 H Baso % (Auto) 0.7 Lymph # (Auto) 2.2 Maury # (Auto) 0.6 Eos # (Auto) 3.4 H Baso # (Auto) 0.1 Abs Immat Gran (auto) 0.09 H Absolute Neuts (auto) 10.2 H Absolute Nucleated RBC 0.000 Nucleated RBC % (auto) 0.0 Smear Tech's Comments VERIFIED Urine Color Urine Appearance Urine pH Ur Specific Nocona Urine Protein Urine Glucose (UA) Urine Ketones Urine Blood Urine Nitrite Ur Leukocyte Esterase Urine RBC Urine WBC Ur Squamous Epith Cells Amorphous Sediment Urine Bacteria Urine Test NEGATIVE Influenza Type A (PCR) NEGATIVE Influenza Type B (PCR) NEGATIVE RSV RNA Qual (PCR) NEGATIVE SARS-CoV-2 RNA (RT-PCR) NEGATIVE 01/30/22 15:04 Immature Gran % (Auto) Neut % (Auto) Lymph % (Auto) Maury % (Auto) Eos % (Auto) Baso % (Auto) Lymph # (Auto) Maury # (Auto) Eos # (Auto) Baso # (Auto) Abs Immat Gran (auto) Absolute Neuts (auto) Absolute Nucleated RBC Nucleated RBC % (auto) Smear Tech's Comments Urine Color YELLOW Urine Appearance CLOUDY Urine pH 5.5 Ur Specific Nocona >= 1.030 H Urine Protein 1+ H Urine Glucose (UA) NEG Urine Ketones NEG Urine Blood NEG Urine Nitrite NEG Ur Leukocyte Esterase NEG Urine RBC 0 Urine WBC 0 Ur Squamous Epith Cells 2+ Amorphous Sediment 3+ Urine Bacteria NONE Urine Test Influenza Type A (PCR) Influenza Type B (PCR) RSV RNA Qual (PCR) SARS-CoV-2 RNA (RT-PCR) Assessment and Plan (1) Cocaine abuse: Status: Acute (2) Acute respiratory distress: Status: Acute (3) Acute asthma exacerbation: Status: Acute Plan 26yo F with asthma, anxiety, depression presenting with dyspnea, admitted for? acute asthma exacerbation, ?acute asthma exacerbation possible sec to cocaine use still has dyspnea with minimal excersion continue steroids , standing/prn nebs,azithromycin for bronchitis, taper oxygen ?polysubstance abuse - pt denies though she is on Vivitrol but states she is only on it due to a history of abusing Xanax in the past.declined ? Addiction Medicine + CARE Team consult ?opioid use: she used cocaine use refused subaxone . ?mood disorder - continue bupropion, buspirone, lamotrigine, sertraline. Anisocoria:resolved , will continue to moniter ct head neg if Anisocoria come back, will do further workup otherwise further workup as per PCP outpatient. ?VTE ppx - LMWH inpatient need :acute asthma exacerbation possible sec to cocaine use Quality Stroke Does the patient have a stroke diagnosis?: No VTE Prior VTE?: No VTE Risk Level:: Medical - moderate - high VTE Device Contraindication: N/A - Device Ordered VTE Drug Contraindication: N/A - Med Ordered
[2022-01-31] MEDS: Lactated Ringers 1,000 ML 100 ML IVCONT (10:42)
--- NOTE | 2022-01-31 16:02 | MHC.CM.PN ---
CM MET W/PT AND HOSPITALIST D/T PT WANTING TO D/C AMA, PT WAS WAS ENCOURAGED TO STAY W/CONCERN THAT HER CONDITION WILL WORSEN, PT ALSO ENCOURAGED TO FOLLOW-UP WITH PCP NEXT WEEK FOR TESTING FOR SYPHILIS D/T HOSPITALIST PHYSICAL EXAM, AFTER HOSPITALIST LEFT PT ALSO SAID SHE STILL WANTS TO LEAVE HOWEVER PT ALSO REPORTS SHE WOULD LIKE STD/TESTING AND ONLY REFUSED DRUG SCREEN, HOSPITALIST AND NSG AWARE.
[2022-01-31 16:10] LABS: Alanine Aminotransferase 18 U/L (0-31); Alkaline Phosphatase 59 U/L (39-117); Aspartate Amino Transferase 27 U/L (5-31); Bilirubin Direct < 0.2 mg/dL (0.0-0.5); Bilirubin Total 0.2 mg/dL (0.0-1.0); Total Protein 6.8 g/dL (6.5-8.0)
[2022-01-31 16:23] LABS: Estimated Average Glucose 94 mg/dL; Hemoglobin A1c % 4.9 %
--- NOTE | 2022-01-31 16:57 | P.DS_ITS ---
DS: Providers Provider Date of Service: 01/31/22 Date of admission: 01/30/22 12:14 Primary care physician: Deidre Moses NP DS: Diagnosis Discharge Diagnosis (1) Cocaine abuse: Status: Acute (2) Acute respiratory distress: Status: Acute (3) Acute asthma exacerbation: Status: Acute DS: Summary Hospital Course Hospital Course: 26 year-old woman with asthma, anxiety, and depression presented with dyspnea and was admitted for acute asthma exacerbation-she was here last month with the similar presentation. Brought by her boyfriend because she was having difficulty breathing from 2 days also has some clear phlegm. ??EMS called by boyfriend this morning after found her? breathing is worsening, patient was found hypoxic patient was given epinephrine IM with magnesium and Solu-Medrol at the scene and was given bronchodilator . Patient says that she was smoking crack yesterday-probably worsen symptoms due to that, patient stated that she ran out of her asthma medication however p atient was able to use friend's bronchodilator via neb. Patient stated that she has been coughing with clear sputum. In ED:? Patient received nebs, steroids, magnesium-shortness of breath seems to be improving afterwards, but considering still weak and short of breath as well as has significant wheezing-ED requested admission for overnight observation for asthma exacerbation. Hospital course: Patient was admitted to the hospital because of asthma exacerbation probably related to cocaine smoking: Started on nebs, steroids: Subsequently patient seems to be improved-currently walking in the cold or with the sats of 90s. Patient will be going home with inhaler and steroid, patient was strongly advised to abstain from cocaine use. In addition offered for addiction consult but patient declined. Patient is going home with p.o. steroids and inhalers. Leukocytosis probably reactive to cocaine and steroids: Monitor CBC outpatient with PCP. No fever or cough or any new symptoms Patient had anisocoria: Which was improved already, patient wants to defer further testing outpatient with PCP. Patient was somewhat short of breath this morning which was improved when seen this afternoon and that is pompa she is going home. Above management discussed with the patient in detail length she understand and in agreement with the above plan, time spent 50 minutes and 50% time spent on counseling. Significant findings: As above. Procedures performed: None. Treatment and response: As above. Complications: None. Time Spent with Patient Time attestation: Total time spent providing and/or coordinating discharge services: Discharge coordination time: Greater than 30 minutes Quality: Safe Use of Opioids Does Pt have an Active Cancer Diagnosis on the Problem List?: No Quality: Stroke Does the patient have a stroke diagnosis?: No Physical Exam Vital Signs: Vital Signs: Last Vital Signs Temp 98.0 F 01/31/22 15:30 Pulse 90 01/31/22 16:32 Resp 19 01/31/22 16:32 BP 106/50 L 01/31/22 15:30 Pulse Ox 92 01/31/22 15:30 Oxygen Flow Rate 6 01/30/22 07:39 BMI result Body Mass Index 29.4 Appearance: Alert.? Oriented X3.? sob cvs: rrr, [id number] , no murmur res:? Air entry diminished, bilateral wheezing abd: no rebound or guarding ,nt, bs present. ext pulses present , no cyanosis . neuro: axo3 , nonfocal. DS: Data Data Completed and Pending Labs on day of discharge: Laboratory Results - last 24 hr 01/30/22 01/30/22 08:16 08:16 Estimat Average Glucose 94 Hemoglobin A1c % 4.9 Total Bilirubin 0.2 Direct Bilirubin < 0.2 AST 27 D ALT 18 Alkaline Phosphatase 59 Total Protein 6.8 Albumin 4.0 Discharge Plan Discharge Patient Disposition: Home, Self-Care Discharge Diagnosis: Asthma exacerbation secondary to cocaine use, anisocoria Referrals: Deidre Moses GUN REPAIR CLERK [Primary Care Provider] - 1 Week Discharge Medications: New albuterol sulfate 90 mcg/actuation aerosol powdr breath activated 1 inh inhalation Q4-6H PRN (Reason: shortness of breath) Qty: 1 0RF Breo Ellipta 100-25 mcg/dose blister with device 1 inh inhalation DAILY Qty: 28 0RF prednisone 20 mg tablet 40 mg PO DAILY Qty: 8 0RF Continued diphenhydramine HCl 50 mg Capsule 50 mg PO BEDTIME PRN (Reason: Sleep) 0RF trazodone 50 mg Tablet 50 mg PO BEDTIME 0RF cetirizine [Zyrtec] 10 mg Tablet 10 mg PO DAILY 0RF omeprazole 20 mg Capsule,Delayed Release(Dr/Ec) 20 mg PO BID 0RF sertraline 100 mg tablet 150 mg PO DAILY 0RF norethindrone-e.estradiol-iron [Junel FE 09/26 (28)] 1 mg-20 mcg (21)/75 mg (7) tablet 1 tab PO DAILY 0RF bupropion HCl 300 mg tablet extended release 24 hr 1 tab PO DAILY 0RF Vivitrol 380 mg suspension,extended rel recon 4 ml IM Q4W 0RF ondansetron HCl 4 mg tablet 1 tab PO Q8-12H PRN (Reason: nausea) 0RF buspirone 10 mg tablet 10 mg PO BID 0RF hydroxyzine HCl 25 mg tablet 1 - 2 tab PO BID PRN (Reason: anxiety) 0RF ibuprofen [IBU] 600 mg tablet 1 tab PO BID PRN (Reason: pain) 0RF clonazepam 0.5 mg tablet 1 tab PO DAILY PRN (Reason: anxiety attack) 0RF Discharge Orders: Discharge Order (Routine); Ordered 01/31/22 Ordered By: Kenrick Gorman Diet: advance to usual diet Activity on Discharge: As tolerated Stand Alone Forms: Patient Portal Discharge page Care Plan Goals: Patient was admitted to the hospital because of asthma exacerbation probably related to cocaine smoking: Started on nebs, steroids: Subsequently patient seems to be improved-currently walking in the cold or with the sats of 90s. Patient will be going home with inhaler and steroid, patient was strongly advised to abstain from cocaine use. In addition offered for addiction consult but patient declined. Patient is going home with p.o. steroids and inhalers. Leukocytosis probably reactive to cocaine and steroids: Monitor CBC outpatient with PCP. No fever or cough or any new symptoms Patient had anisocoria: Which was improved already, patient wants to defer further testing outpatient with PCP. Health Concerns: As above. Plan of Treatment: As above. Assessment: As above.
[2022-01-31] MEDS: predniSONE 20 MG TABLET 40 MG PO (17:34)
== END 2022-01-31 18:38 | disposition home or self-care (01) ==
LOC: HO.ED 10:02 → HO.EDOVER 12:18 → HO.S3 01-31 10:44
PROVIDERS: Admitting Provider Internal Medicine; Emergency Provider Emergency Medicine; PCP Nurse Practitioner Family; Visit Provider Internal Medicine
DX: J45.901 Unspecified asthma with (acute) exacerbation (principal); R06.03 Acute respiratory distress; R00.0 Tachycardia, unspecified; H57.02 Anisocoria; R73.9 Hyperglycemia, unspecified; D72.829 Elevated white blood cell count, unspecified; F14.10 Cocaine abuse, uncomplicated; F11.93 Opioid use, unspecified with withdrawal; F17.210 Nicotine dependence, cigarettes, uncomplicated; F41.8 Other specified anxiety disorders; Z20.822 Contact with and (suspected) exposure to COVID-19; Z79.899 Other long term (current) drug therapy
CPT/HCPCS: 0241U; 70450; 71045; 80048; 80076; 81001; 81025; 83036; 83690; 85025; 93005; 94640; 94644; 96361; 96365; 96366; 96372; 96375; 96376; 99218; 99285; J2920; J2930; J3475

== ENCOUNTER 2023-09-19 00:34 | Emergency (ER) | payer OTHER, SELFPAY ==
[2023-09-19] VITALS (7 sets, daily range): BP systolic 87–108; BP diastolic 50–78; PULSE 60–88; RESP 14–18; TEMP 36.7; O2SAT 96–98; BMI 20.4
--- NOTE | ~2023-09-19 | US_ITS ---
EXAMINATION: US OBSTETRICAL ULTRASOUND CLINICAL INFORMATION: Vomiting psychiatric symptoms COMPARISON: Ultrasound obstetrical from 12/30/2020. LMP: Unknown. TECHNIQUE: Transabdominal was performed. Multiple sagittal and transverse grayscale, color and pulse wave doppler images obtained. FINDINGS: There is a single intrauterine gestational sac with embryo/fetus, and cardiac activity. There is no significant subchorionic hemorrhage or hematoma. Yolk sac not visualized. HR: 147 beats per minute. CRL (crown-rump length): 5.16 cm (11 weeks 6 days +/- 4 days). CELINE (estimated date of delivery): 04/03/2024 +/- 4 days. MATERNAL ADNEXA: The right maternal ovary measures 4.4 x 2.8 x 2.3 cm. Simple appearing cystic focus right ovary measuring 1.8 x 1.1 x 1.4 cm. The left maternal ovary measures 2.8 x 2.3 x 2.2 cm. There is no significant maternal adnexal mass. No maternal pelvic ascites. movement observed. US/US OB limited IMPRESSION: 1. LMP unknown. Only transabdominal imaging performed. No yolk sac identified. 2. Single intrauterine gestation with ultrasound gestational age of 11 weeks 6 days +/- 4 days. Estimated date of delivery is 04/03/2024 +/- 4 days. 4. heart rate of 147 bpm. 5. movement observed. 6. Simple cystic focus right ovary measuring up to 1.8 cm.
[2023-09-19 01:11] LABS: MANUAL DIFF FLAG NO
[2023-09-19 01:12] LABS: Basophils Absolute Auto 0.1 X10*3/uL (0.0-0.2); Basophils Percent Auto 0.7 % (0-2); Eosinophils Absolute Auto 0.3 X10*3/uL (0.0-0.4); Eosinophils Percent Auto 3.1 % (0-4); Hematocrit 35.7 % (37.0-47.0); Hemoglobin 12.4 g/dl (12.0-16.0); Imm Gran Abs Auto 0.02 X10*3/uL (0.00-0.03); Imm Gran Pct Auto 0.2 % (0.0-0.4); Lymphocytes Absolute Auto 2.1 X10*3/uL (1.2-4.9); Lymphocytes Percent Auto 25.1 % (20-40); Mean Corpuscular HGB Conc 34.7 g/dl (31.0-35.0); Mean Corpuscular Hemoglobin 29.6 pg (27.0-33.0); Mean Corpuscular Volume 85.2 fL (80.0-98.0); Mean Platelet Volume 9.4 fL (9.4-12.3); Monocytes Absolute Auto 0.4 X10*3/uL (0.1-1.2); Monocytes Percent Auto 4.8 % (2-11); Neutrophils Absolute Auto 5.6 x10*3/uL (2.0-8.3); Neutrophils Percent Auto 66.1 % (45-73); Platelet Count 243 X10*3/uL (160-400); Red Blood Count 4.19 X10*6/uL (4.20-5.50); Red Cell Distribution Width 13.1 % (11.0-16.0); White Blood Count 8.5 X10*3/uL (4.8-10.8)
[2023-09-19 01:38] LABS: Alanine Aminotransferase 8 U/L (0-31); Alkaline Phosphatase 39 U/L (39-117); Anion Gap 12 (12-20); Aspartate Amino Transferase 12 U/L (5-31); Bilirubin Total 0.4 mg/dL (0.0-1.0); Blood Urea Nitrogen 7 mg/dL (9-16); Calcium 9.2 mg/dL (8.4-10.2); Carbon Dioxide 24 mmol/L (22-29); Chloride 107 mmol/L (96-108); Creatinine Clr Calc Pharmacy 97.4; Estimated Glomerular Filt Rate > 60; Glucose Random 85 mg/dL (60-115); Potassium 3.8 mmol/L (3.3-5.1); Sodium 139 mmol/L (135-145); Total Protein 6.7 g/dL (6.5-8.0)
[2023-09-19 01:59] LABS: HCG Quantitative 31103 mIU/mL
--- OUTSIDE RECORDS SUMMARY | 2023-09-19 03:01 | XMS_ITS | Continuity of Care Document ---
Author Name Unknown Organization [facility] [employer] [facility] Address [address] [place] [address], [address] [place] [address]- Care Team Providers Care Dinkey Skinner Name Role Phone Deidre Moses NP Primary Care Physician Encounter [place] Date(s): 08/14/21 - 08/21/21 [facility] [employer] [facility] [address] [place] [address], [address] [place], [place] [address] Attending Physician: Gaetano LISA [OB], Li Moody Allergies, Adverse Reactions, Alerts No Known Medication Allergies Immunizations Given and Recorded Vaccine Date Status Refusal Reason tetanus/diphtheria/pertussis, acel(Tdap) 05/06/21 Recorded tetanus/diphtheria/pertussis, acel(Tdap) 03/04/19 Recorded tetanus/diphtheria/pertussis, acel(Tdap) 02/16/19 Recorded influenza virus vaccine, inactivated 06/14/20 Efrem rded Medications albuterol CFC free 90 mcg/inh inhalation aerosol 2, puffs, Inhalation, Every 4 hours, PRN, # 18 Gm, Refills 0, Tot. Refills 0, Maintenance, 03/27/1613:50:39, Aerosol, Print Requisition, Compound Start Date: 03/27/16 Status: Ordered clonazePAM 0.5 mg oral tablet 1 tablet = 0.5 mg, By Mouth, Daily at bedtime, PRN Anxiety, # 30 tablet, 0 Refills, Maintenance, 08/14/21 10:49:00 EST, Tablet, [facility]/pharmacy #[id number], Partial fill upon patient request if the prescription is for a schedule II opioid drug., 148, cm, 07/26... Start Date: 08/14/21 Status: Ordered Multivitamins By Mouth, Daily, 0 Refills, Maintenance, 08/24/18 12:32:54 EST Start Date: 08/24/18 Status: Ordered Prilosec OTC = 20 mg, By Mouth, Daily, 0 Refills, Maintenance, 12/30/20 12:31:00 EDT, Partial fill upon patient request if the prescription is for a schedule II opioid drug. Start Date: 12/30/20 Status: Ordered sertraline 150 mg oral capsule 1 capsule = 150 mg, By Mouth, Daily, 0 Refills, Maintenance, 08/14/21 10:49:00 EST, Partial fill upon patient request if the prescription is for a schedule II opioid drug. Start Date: 08/14/21 Status: Ordered traZODone 50 mg oral tablet 1, tablet, By Mouth, Daily at bedtime, # 30 tablet, Refills 0, Tot. Refills 0, 08/14/21 10:49:00 EST, Route to Pharmacy Electronically, [facility]/pharmacy #[id number], 148, cm, 07/26/21 9:02:00 EST, Height, 64.7, kg, 07/23/21 18:44:00 EST, Dry Weight Start Date: 08/14/21 Status: Ordered Vivitrol 380 mg intramuscular injection, extended release = 380 mg, Intramuscular, Every 28 days, # 1 each, 0 Refills, Maintenance, 08/19/21 12:39:00 EST, [facility], Partial fill upon patient request if the prescription is for a schedule II opioid drug., 148, cm, 07/26/21 9:02:00 EST, Heigh... Start Date: 08/19/21 Status: Ordered Problem List Condition Effective Dates Status Health Status Inform ant Asthma(Confirmed) 1 03/26/16 Active Depression with anxiety(Confirmed) Active Opioid use disorder(Confirmed) Active 1Triggered by heroin use Social History Social History Type Response Smoking Status Never smoker entered on: 12/21/13 Sex
--- OUTSIDE RECORDS SUMMARY | 2023-09-19 03:01 | XMS_ITS | Continuity of Care Document ---
Author Name Unknown Organization [facility]if [facility] Address [address] [place] [address], [address] [place] [address]- Care Team Providers Care Patients Transporter Name Role Phone Deidre Moses NP Primary Care Physician [phone] Encounter [facility] Date(s): 06/05/21 - 07/05/21 [facility] [employer] [facility] [address] [facility], [address] [place], [place] [address] Allergies, Adverse Reactions, Alerts No Known Medication [...] Requisition, Compound Start Date: 03/27/16 Status: Ordered cloNIDine 0.1 mg oral tablet 0.1 mg, By Mouth, Every 6 hours, PRN, # 30 tablet, Refills 1, Tot. Refills 1, Maintenance, Anxiety,05/12/21 18:23:00 EDT, Route to Pharmacy Electronically, [facility]/pharmacy #[id number], 148, cm, 05/12/21 16:49:00 EDT, Height, 66, kg, 05/10/21 21:34:00 EDT, Dry... Start Date: 05/12/21 Status: Ordered FLUoxetine 20 mg oral capsule 20 mg, 1, capsule, By Mouth, Daily, # 30 capsule, Refills 0, Tot. Refills 0, Maintenance, 05/16/21 16:50:00 EDT, Route to Pharmacy Electronically, [facility]/pharmacy #[id number], Partial fill upon patient request if the prescription is for a schedule II opioid dr... Start Date: 05/16/21 Status: Ordered KlonoPIN 0.5 mg oral tablet 0.5 tablet = 0.25 mg, By Mouth, Daily, PRN Anxiety, 0 Refills, Maintenance, 12/30/20 17:08:00 EDT, Tablet, Partial fill upon patient request if the prescription is for a schedule II opioid drug. Start Date: 12/30/20 Status: Ordered naltrexone 50 mg oral tablet 1 tablet = 50 mg, By Mouth, Daily, # 30 tablet, 0 Refills, Acute 06/10/22 17:04:00 EDT, 06/15/21 16:54:00 EDT, Tablet, [facility]/pharmacy #[id number], Partial fill upon patient request if the prescription is fora schedule II opioid drug., 148, cm, 06/10/21 16:46... Start Date: 06/15/21 Stop Date: 06/10/22 Status: Ordered Multivitamins By Mouth, Daily, 0 Refills, Maintenance, 08/24/18 12:32:54 EST Start Date: 08/24/18 Status: Ordered Prilosec OTC = 20 mg, By Mouth, Daily, 0 Refills, Maintenance, 12/30/20 12:31:00 EDT, Partial fill upon patient request if the prescription is for a schedule II opioid drug. Start Date: 12/30/20 Status: Ordered traZODone 50 mg oral tablet 1, tablet, By Mouth, Daily at bedtime, # 30 tablet, Refills 0, Route to Pharmacy Electronically, [facility]ORE [id number], 148, cm, 06/24/21 16:00:00 EDT, Height, 66, kg, 05/10/21 21:34:00 EDT, Dry Weight Start Date: 07/04/21 Status: Ordered Zofran 4 mg oral tablet 1 tablet = 4 mg, By Mouth, Every 8 hours, # 12 tablet, 0 Refills, Maintenance, 12/30/20 22:22:00 EDT, Tablet, [facility]/pharmacy #[id number], Partial fill upon patient request if the prescription is for a schedule II opioid drug., 149, cm, 12/30/20 12:25:00 EDT,... Start Date: 12/30/20 Status: Ordered Problem List Condition Effective Dates Status Health Status Inform ant Asthma(Confirmed) 1 03/26/16 Active Depression with anxiety(Confirmed) Active Opioid use disorder(Confirmed) Active 1Triggered by heroin use Social History Social History Type Response Smoking Status Never smoker entered on: 12/21/13 Sex
--- OUTSIDE RECORDS SUMMARY | 2023-09-19 03:01 | XMS_ITS | Continuity of Care Document ---
Author Name Unknown Organization [facility] Address [address] [place] [address], [address] [place] [address]- Care Team Providers Care Immigration Lawyer Name Role Phone Deidre Moses NP Primary Care Physician [phone] Encounter [facility] Date(s): 06/24/21 - 07/01/21 [facility] [employer] [facility] [address] [facility], [address] [place], [place] [address] Attending Physician: Chris Proctor MD Admitting Physician: Gaetano LISA [OB], Li Moody Referring Physician: Gaetano LISA [OB], Li Moody Allergies, [...] Route to Pharmacy Electronically, [facility]/pharmacy #[id number], 148, cm, 05/12/21 16:49:00 EDT, Height, 66, kg, 05/10/21 21:34:00 EDT, Dry... Start Date: 05/12/21 Status: Ordered FLUoxetine 20 mg oral capsule 20 mg, 1, capsule, By Mouth, Daily, # 30 capsule, Refills 0, Tot. Refills 0, Maintenance, 05/16/21 16:50:00 EDT, Route to Pharmacy Electronically, [facility]/pharmacy #[id number], Partial fill upon patient request if the [...] 06/15/21 16:54:00 EDT, Tablet, [facility]/pharmacy #[id number], Partial fill upon patient request if the [...] Status: Ordered traZODone 50 mg oral tablet 50 mg, 1, tablet, By Mouth, Daily at bedtime, # 30 tablet, Refills 0, Tot. Refills 0, Maintenance, 06/10/21 17:03:00 EDT, Route to Pharmacy Electronically, [facility]/pharmacy #[id number], Partial fill upon patient request if the prescription is for a schedule II... Start Date: 06/10/21 Status: Ordered Zofran 4 mg oral tablet 1 tablet = 4 mg, By Mouth, Every 8 hours, # 12 tablet, 0 Refills, Maintenance, 12/30/20 22:22:00 EDT, Tablet, [facility]/pharmacy #[id number], Partial fill upon patient request if the prescription is for a schedule II opioid drug., 149, cm, 12/30/20 12:25:00 EDT,... Start Date: 12/30/20 Status: Ordered Problem List Condition Effective Dates Status Health Status Inform ant Asthma(Confirmed) 1 03/26/16 Active Depression with anxiety(Confirmed) Active Opioid use disorder(Confirmed) Active 1Triggered by heroin use Vital Signs Most recent to oldest [Reference Range]: 1 Height 148 cm (06/24/21 4:00 PM) Weight 64.93 kg (06/24/21 4:00 PM) Body Mass Index [18.5-24.99] 29.64 *H* (06/24/21 4:00 PM) Blood Pressure [90-138/55-84 mm Hg] 122/ 71mm Hg (06/24/21 4:00 PM) Blood pressure sites Arm, right (06/24/21 4:00 PM) Weight Obtained Via Standing scale (06/24/21 4:00 PM) Social History Social History Type Response Smoking Status Never smoker entered on: 12/21/13 Sex
--- OUTSIDE RECORDS SUMMARY | 2023-09-19 03:01 | XMS_ITS | Continuity of Care Document ---
Author Name Unknown Organization [facility] Leif Jamison [employer] [facility] Address [address] [place] [address], [address] [place] [address]- Care Team Providers Care Collar Padder Blindstitch Name Role Phone Deidre Moses NP Primary Care Physician Encounter [facility] Date(s): 05/27/21 - 06/26/21 [facility] [employer]ston [employer] [facility] [address] [facility], [address] [place], [place] [address] Allergies, Adverse Reactions, Alerts No Known Medication [...] Anxiety,05/12/21 18:23:00 EDT, Route to Pharmacy Electronically, [facility]/pharmacy #[id number], 148, cm, 05/12/21 16:49:00 EDT, Height, 66, kg, 05/10/21 21:34:00 EDT, Dry... Start Date: 05/12/21 Status: Ordered FLUoxetine 20 mg oral capsule 20 mg, 1, capsule, By Mouth, Daily, # 30 capsule, Refills 0, Tot. Refills 0, Maintenance, 05/16/21 16:50:00 EDT, Route to Pharmacy Electronically, [facility]/pharmacy #[id number], Partial fill upon patient request if the [...] 06/10/22 17:04:00 EDT, 06/15/21 16:54:00 EDT, Tablet, [facility]/pharmacy #[id number], Partial fill upon patient request if [...] 06/10/21 17:03:00 EDT, Route to Pharmacy Electronically, [facility]/pharmacy #[id number], Partial fill upon patient request if the prescription is for a schedule II... Start Date: 06/10/21 Status: Ordered Zofran 4 mg oral tablet 1 tablet = 4 mg, By Mouth, Every 8 hours, # 12 tablet, 0 Refills, Maintenance, 12/30/20 22:22:00 EDT, Tablet, [facility]/pharmacy #[id number], Partial fill upon patient request if [...]
--- OUTSIDE RECORDS SUMMARY | 2023-09-19 03:01 | XMS_ITS | Continuity of Care Document ---
Author Name Unknown Organization [facility] ter Address [address] [place] [address]- Care Team Providers Care Horticulture Teacher Name Role Phone Deidre Moses NP Primary Care Physician [phone] Encounter [facility] [place] Date(s): 07/23/21 - 07/26/[address] [address] Discharge Disposition: A-D/C Home Attending Physician: Olag Cunha DO Admitting Physician: Olga Cunha DO Referring Physician: Olga Cunha DO Allergies, Adverse Reactions, Alerts No Known Medication Allergies Immunizations Given and Recorded Vaccine Date Status Refusal Reason tetanus/diphtheria/pertussis, acel(Tdap) 05/06/21 Recorded tetanus/diphtheria/pertussis, acel(Tdap) 03/04/19 Recorded tetanus/diphtheria/pertussis, acel(Tdap) 02/16/19 Recorded influenza virus vaccine, inactivated 06/14/20 Efrem rded Medications Acetaminophen Tablet 650 mg, Tablet, By Mouth, Every 4 hours, PRN for Pain , Mild, (1-3), may give 325mg per patient preference and re-dose with 325mg within 4 hours, if needed. Patient should only receive a total of 650mg of Acetaminophen every 4 hours., Routine, 07/24... Start Date: 07/24/21 Stop Date: 07/26/21 Status: Discontinued albuterol CFC free 90 mcg/inh inhalation aerosol 2, puffs, Inhalation, Every 4 hours, PRN, # 18 Gm, Refills 0, Tot. Refills 0, Maintenance, 03/27/1613:50:39, Aerosol, Print Requisition, Compound Start Date: 03/27/16 Status: Ordered clonazePAM 0.5 mg oral tablet 1 tablet = 0.5 mg, By Mouth, 2 times a day, PRN Anxiety, # 30 tablet, 0 Refills, Maintenance, 07/08/21 10:15:00 EDT, Tablet, [facility]/pharmacy #[id number], Partial fill upon patient request if the prescription is for a schedule II opioid drug., 148, cm, 07/08/21... Start Date: 07/08/21 Status: Ordered cloNIDine 0.1 mg oral tablet 0.1 mg, By Mouth, Every 6 hours, PRN, # 30 tablet, Refills 1, Tot. Refills 1, Maintenance, Anxiety,05/12/21 18:23:00 EDT, Route to Pharmacy Electronically, [facility]/pharmacy #[id number], 148, cm, 05/12/21 16:49:00 EDT, Height, 66, kg, 05/10/21 21:34:00 EDT, Dry... Start Date: 05/12/21 Status: Ordered FLUoxetine 20 mg oral capsule 20 mg, 1, capsule, By Mouth, Daily, # 30 capsule, Refills 0, Tot. Refills 0, Maintenance, 05/16/21 16:50:00 EDT, Route to Pharmacy Electronically, [facility]/pharmacy #[id number], Partial fill upon patient request if the [...] 06/10/22 17:04:00 EDT, 06/15/21 16:54:00 EDT, Tablet, [facility]/pharmacy #[id number], Partial fill upon patient request if [...] tablet, Refills 0, Route to Pharmacy Electronically, [id number], 148, cm, 06/24/21 16:00:00 EDT, Height, 66, kg, 05/10/21 21:34:00 EDT, Dry Weight Start Date: 07/04/21 Status: Ordered Problem List Condition Effective Dates Status Health Status Inform ant Asthma(Confirmed) 1 03/26/16 Active Depression with anxiety(Confirmed) Active Opioid use disorder(Confirmed) Active 1Triggered by heroin use Vital Signs Most recent to oldest [Reference Range]: 1 2 3 Height 148 cm (07/26/21 9:02 AM) 148 cm (07/26/21 8:16 AM) 148 cm (07/26/21 12:08 AM) Weight 64.7 kg (07/23/21 6:44 PM) 64.7 kg (07/23/21 4:03 PM) Oxygen Saturation [94-100 %] 100 % (07/24/21 3:54 PM) 98 % (07/24/21 8:46 AM) 98 % (07/24/21 8:30 AM) Pulse Rate [55-90 bpm] 73 bpm (07/26/21 9:02 AM) 59 bpm (07/26/21 8:16 AM) 81 bpm (07/26/21 12:08 AM) Body Mass Index [18.5-24.99] 29.54 *H* (07/23/21 6:44 PM) Blood Pressure [90-138/55-84 mm Hg] 137/87mm Hg (07/26/21 9:02 AM) 140/91mm Hg *H* (07/26/21 8:16 AM) 117/69mm Hg (07/26/21 12:08 AM) Respiratory Rate [16-30 br/min] 18 br/min (07/26/21 10:08 AM) 18 br/min (07/26/21 8:16 AM) 18 br/min (07/26/21 12:08 AM) Temperature [96.8-100.4 DegF] 97.9 DegF (07/26/21 8:16 AM) 98.7 DegF (07/26/21 12:08 AM) 98.1 DegF (07/25/21 4:43 PM) Mode of Delivery (Oxygen) Room air (07/23/21 6:44 PM) Room air (07/23/21 6:21 PM) Room air (07/23/21 4:28 PM) Blood pressure sites Arm, left (07/26/21 8:16 AM) Arm, left (07/25/21 4:43 PM) Arm, left (07/24/21 6:06 PM) Temperature Route Oral (07/26/21 8:16 AM) Oral (07/26/21 12:08 AM) Oral (07/25/21 4:43 PM) Dry Weight 64.7 kg (07/23/21 6:44 PM) 64.7 kg (07/23/21 4:03 PM) Weight Obtained Via Standing scale (07/23/21 4:03 PM) Dry Weight Obtained Via Standing scale (07/23/21 4:03 PM) Social History Social History Type Response Smoking Status Never smoker entered on: 12/21/13 Sex
--- OUTSIDE RECORDS SUMMARY | 2023-09-19 03:01 | XMS_ITS | Continuity of Care Document ---
Author Name Unknown Organization [facility] Leif Jamison [employer] Address [address] [place] [address], [address] [place] [address]- Care Team Providers Care Supplier Quality Engineering Manager Name Role Phone Deidre Moses NP Primary Care Physician Encounter [facility] Date(s): 09/03/21 - 10/03/21 [facility] Leifelsie Bonner's [facility] [address] [facility], 4th [place] [address]- Allergies, Adverse Reactions, Alerts No Known Medication [...] 0 Refills, Maintenance, 08/14/21 10:49:00 EST, Tablet, [facility]/pharmacy #[id number], Partial fill upon patient request if the [...] tablet, Refills 0, Route to Pharmacy Electronically, [facility], 148, cm, 07/26/21 9:02:00 EST, Height, 64.7, kg, 07/23/21 18:44:00 EST, Dry Weight Start Date: 09/25/21 Status: Ordered Vivitrol 380 mg intramuscular injection, extended release See Instructions, INJECT 380 MG INTO THE MUSCLE EVERY 28 DAYS, # 1 kit, 0 Refills, [facility], 148, cm, 07/26/21 9:02:00 EST, Height, 64.7, kg, 07/23/21 18:44:00 EST, Dry Weight Start Date: 09/03/21 Status: Ordered Problem List Condition Effective Dates Status Health Status Inform ant Asthma(Confirmed) 1 03/26/16 Active Depression with anxiety(Confirmed) Active Opioid use disorder(Confirmed) Active 1Triggered by heroin use Social History Social History Type Response Smoking Status Never smoker entered on: 12/21/13 Sex
--- OUTSIDE RECORDS SUMMARY | 2023-09-19 03:01 | XMS_ITS | Continuity of Care Document ---
Author Name Unknown Organization [facility] Leif Jamison [employer] [facility] Address [address] [place] [address], [address] [place] [address]- Care Team Providers Care Rehabilitation Therapy Aide Name Role Phone Deidre Moses NP Primary Care Physician Encounter [facility] [place] Date(s): 08/19/21 - 09/25/21 [facility]ie [facility]ner[facility] [facility] [address] [facility], [address]th [place] [address]- Attending Physician: Gaetano LISA [OB], Li Moody Referring Physician: Deidre Moses NP Allergies, Adverse Reactions, Alerts No Known Medication [...] 0 Refills, Maintenance, 08/14/21 10:49:00 EST, Tablet, [id number], Partial fill upon patient request if [...] tablet, Refills 0, Route to Pharmacy Electronically, [facility], 148, cm, 07/26/21 9:02:00 EST, Height, 64.7, [...]
--- OUTSIDE RECORDS SUMMARY | 2023-09-19 03:01 | XMS_ITS | Continuity of Care Document ---
Author Name Unknown Organization [facility] Address [address] [place] [address], [address] [place] [address]- Care Team Providers Care Card Seller Name Role Phone Aurelia SWEENEY, Deidre Primary Care Physician [phone] Encounter [facility] [place] Date(s): 09/04/21 - 10/16/21 [facility] [address] [facility], [address] [place] [address]- Attending Physician: Gaetano LISA [OB], Li Moody Referring Physician: Moriah Salter CNM Allergies, Adverse Reactions, Alerts No Known Medication [...] tablet, Refills 0, Route to Pharmacy Electronically, [facility], 148, cm, 07/26/21 9:02:00 EST, Height, 64.7, [...]
--- OUTSIDE RECORDS SUMMARY | 2023-09-19 03:01 | XMS_ITS | Continuity of Care Document ---
Author Name Unknown Organization [facility] Address [address] [place] [address]- Care Team Providers Care Community Planner Name Role Phone Deidre Moses NP Primary Care Physician Encounter [facility] Date(s): 07/22/21 - 08/24/[address] [address]- Attending Physician: Gaetano LISA [OB]Li Admitting Physician: Gaetano LISA [OB], Li Moody Allergies, [...] Refills, Maintenance, 08/14/21 10:49:00 EST, Tablet, [id number], Partial fill upon patient request if the [...] 08/14/21 10:49:00 EST, Route to Pharmacy Electronically, [facility]/pharmacy #[id number], 148, cm, 07/26/21 9:02:00 EST, Height, 64.7, kg, 07/23/21 18:44:00 EST, Dry Weight Start Date: 08/14/21 Status: Ordered Vivitrol 380 mg intramuscular injection, extended release = 380 mg, Intramuscular, Every 28 days, # 1 each, 0 Refills, Maintenance, 08/19/21 12:39:00 EST, [facility], Partial fill upon patient request if the prescription is for a schedule II opioid drug., 148, cm, 07/26/21 9:02:00 EST, Carlos... Start Date: 08/19/21 Status: Ordered Problem List Condition Effective Dates Status Health Status Inform ant Asthma(Confirmed) 1 03/26/16 Active Depression with anxiety(Confirmed) Active Opioid use disorder(Confirmed) Active 1Triggered by heroin use Social History Social History Type Response Smoking Status Never smoker entered on: 12/21/13 Sex
--- OUTSIDE RECORDS SUMMARY | 2023-09-19 03:01 | XMS_ITS | Continuity of Care Document ---
Author Name Unknown Organization [facility] Leif Jamison [employer] Address [address] [place] [address], [address]t [place] [address]- Care Team Providers Care Rivet Hammer Machine Operator Name Role Phone Deidre Moses NP Primary Care Physician Encounter [facility] Date(s): 08/19/21 - 09/18/21 [facility] Leif[facility]ie Bonner's [facility] [address] [facility], 4th [place] [address]- Allergies, Adverse Reactions, Alerts No Known Medication [...] 0 Refills, Maintenance, 08/14/21 10:49:00 EST, Tablet, [facility]/pharmacy #[id number], Partial fill upon patient request if the [...] 08/14/21 10:49:00 EST, Route to Pharmacy Electronically, [facility]/pharmacy #[id number], 148, cm, 07/26/21 9:02:00 [...]
--- OUTSIDE RECORDS SUMMARY | 2023-09-19 03:01 | XMS_ITS | Continuity of Care Document ---
Author Name Unknown Organization [facility] [employer] Address [address] [place] [address], 4[address] [place] [address]- Care Team Providers Care Machine Buffer Name Role Phone Deidre Moses NP Primary Care Physician Encounter [facility] Date(s): 07/08/21 - 08/14/21 [facility]ner[facility] [address] [facility], 4th [place] [address]- Attending Physician: Gaetano LISA [OB], Li Moody [...] Refills, Maintenance, 08/14/21 10:49:00 EST, Tablet, [id number], Partial fill upon patient request if the [...] 08/14/21 10:49:00 EST, Route to Pharmacy Electronically, [facility]/pharmacy #[id number], 148, cm, 07/26/21 9:02:00 EST, Height, 64.7, kg, 07/23/21 18:44:00 EST, Dry Weight Start Date: 08/14/21 Status: Ordered Problem List Condition Effective Dates Status Health Status Inform ant Asthma(Confirmed) 1 03/26/16 Active Depression with anxiety(Confirmed) Active Opioid use disorder(Confirmed) Active 1Triggered by heroin use Social History Social History Type Response Smoking Status Never smoker entered on: 12/21/13 Sex
--- OUTSIDE RECORDS SUMMARY | 2023-09-19 03:01 | XMS_ITS | Continuity of Care Document ---
Author Name Unknown Organization [facility] Address [address] [place] [address]- Care Team Providers Care Inclusion Paraeducator Name Role Phone Deidre Moses NP Primary Care Physician En[place] [facility] [place] Date(s): 05/22/21 - 06/22/[address] [address] Attending Physician: Gaetano LISA [OB], Li Moody Admitting Physician: Gaetano LISA [OB], Li Moody [...] Anxiety,05/12/21 18:23:00 EDT, Route to Pharmacy Electronically, [facility]/pharmacy #[id number], 148, cm, 05/12/21 16:49:00 EDT, Height, 66, kg, 05/10/21 21:34:00 EDT, Dry... Start Date: 05/12/21 Status: Ordered FLUoxetine 20 mg oral capsule 20 mg, 1, capsule, By Mouth, Daily, # 30 capsule, Refills 0, Tot. Refills 0, Maintenance, 05/16/21 16:50:00 EDT, Route to Pharmacy Electronically, [facility]/pharmacy #[id number], Partial fill upon patient request if the [...] 06/10/22 17:04:00 EDT, 06/15/21 16:54:00 EDT, Tablet, [facility]/pharmacy #[id number], Partial fill upon patient request [...] 06/10/21 17:03:00 EDT, Route to Pharmacy Electronically, [facility]/pharmacy #[id number], Partial fill upon patient request if the prescription is for a schedule II... Start Date: 06/10/21 Status: Ordered Zofran 4 mg oral tablet 1 tablet = 4 mg, By Mouth, Every 8 hours, # 12 tablet, 0 Refills, Maintenance, 12/30/20 22:22:00 EDT, Tablet, [facility]/pharmacy #[id number], Partial fill upon patient request if the [...]
--- OUTSIDE RECORDS SUMMARY | 2023-09-19 03:01 | XMS_ITS | Continuity of Care Document ---
Author Name Unknown Organization [facility] ter Address [address] [place] [address]- Care Team Providers Care Tile Grinder Name Role Phone Deidre Moses NP Primary Care Physician Encounter [facility] Date(s): 05/29/21 - 05/29/[address] [address] Discharge Disposition: A-D/C Home Attending Physician: Shruthi Beebe MD Admitting Physician: Shruthi Beebe MD Referring Physician: Shruthi Beebe MD Allergies, Adverse Reactions, Alerts No Known Medication [...] Anxiety,05/12/21 18:23:00 EDT, Route to Pharmacy Electronically, [facility]/pharmacy #[id number], 148, cm, 05/12/21 16:49:00 EDT, Height, 66, kg, 05/10/21 21:34:00 EDT, Dry... Start Date: 05/12/21 Status: Ordered FLUoxetine 20 mg oral capsule 20 mg, 1, capsule, By Mouth, Daily, # 30 capsule, Refills 0, Tot. Refills 0, Maintenance, 05/16/21 16:50:00 EDT, Route to Pharmacy Electronically, [facility]/pharmacy #[id number], Partial fill upon patient request if the [...] Daily, # 30 tablet, 0 Refills, Acute 06/15/21 16:54:00 EDT, 05/16/21 16:54:00 EDT, Tablet, [facility]/pharmacy #2338, Partial fill upon patient request if the prescription is fora schedule II opioid drug., 148, cm, 05/16/21 16:24... Start Date: 05/16/21 Stop Date: 06/15/21 Status: Ordered Multivitamins By Mouth, Daily, 0 Refills, Maintenance, 08/24/18 12:32:54 EST Start Date: 08/24/18 Status: Ordered Prilosec OTC = 20 mg, By Mouth, Daily, 0 Refills, Maintenance, 12/30/20 12:31:00 EDT, Partial fill upon patient request if the prescription is for a schedule II opioid drug. Start Date: 12/30/20 Status: Ordered Zofran 4 mg oral tablet 1 tablet = 4 mg, By Mouth, Every 8 hours, # 12 tablet, 0 Refills, Maintenance, 12/30/20 22:22:00 EDT, Tablet, [facility]/pharmacy #1977, Partial fill upon patient request if the prescription is for a schedule II opioid drug., 149, cm, 12/30/20 12:25:00 EDT,... Start Date: 12/30/20 Status: Ordered Problem List Condition Effective Dates Status Health Status Inform ant Asthma(Confirmed) 1 03/26/16 Active Depression with anxiety(Confirmed) Active Polysubstance abuse(Confirmed) Active 1Triggered by heroin use Social History Social History Type Response Smoking Status Never smoker entered on: 12/21/13 Sex
--- OUTSIDE RECORDS SUMMARY | 2023-09-19 03:01 | XMS_ITS | Continuity of Care Document ---
Author Name Unknown Organization [facility] [employer] Address [address] [place] [address], [address] [place] [address]- Care Team Providers Care Cook Larder Name Role Phone Deidre Moses NP Primary Care Physician En[place] [facility] Date(s): 07/08/21 - 07/15/21 [facility] [address] [facility], [address] [place] [address]- Attending Physician: Gaetano LISA [OB], Li Moody Admitting Physician: Gaetano LISA [OB], Li Moody Referring Physician: Gaetano LISA [OB]Li Allergies, Adverse Reactions, Alerts No Known Medication [...] 0 Refills, Maintenance, 07/08/21 10:15:00 EDT, Tablet, [id number], Partial fill upon patient request if the prescription is for a schedule II opioid drug., 148, cm, 07/08/21... Start Date: 07/08/21 Status: Ordered cloNIDine 0.1 mg oral tablet 0.1 mg, By Mouth, Every 6 hours, PRN, # 30 tablet, Refills 1, Tot. Refills 1, Maintenance, Anxiety,05/12/21 18:23:00 EDT, Route to Pharmacy Electronically, [facility]/pharmacy #[id number], 148, cm, 05/12/21 16:49:00 EDT, Height, 66, kg, 05/10/21 21:34:00 EDT, Dry... Start Date: 05/12/21 Status: Ordered FLUoxetine 20 mg oral capsule 20 mg, 1, capsule, By Mouth, Daily, # 30 capsule, Refills 0, Tot. Refills 0, Maintenance, 05/16/21 16:50:00 EDT, [id number], Partial fill upon patient request if the [...] 06/10/22 17:04:00 EDT, 06/15/21 16:54:00 EDT, Tablet, [facility]/pharmacy #[id number], Partial fill upon patient [...] tablet, Refills 0, Route to Pharmacy Electronically, [facility], 148, cm, 06/24/21 16:00:00 EDT, Height, 66, kg, 05/10/21 21:34:00 EDT, Dry Weight Start Date: 07/04/21 Status: Ordered Zofran 4 mg oral tablet 1 tablet = 4 mg, By Mouth, Every 8 hours, # 12 tablet, 0 Refills, Maintenance, 12/30/20 22:22:00 EDT, Tablet, [facility]/pharmacy #[id number], Partial fill upon patient request if the prescription is for a schedule II opioid drug., 149, cm, 12/30/20 12:25:00 EDT,... Start Date: 12/30/20 Status: Ordered Problem List Condition Effective Dates Status Health Status Inform ant Asthma(Confirmed) 1 03/26/16 Active Depression with anxiety(Confirmed) Active Opioid use disorder(Confirmed) Active 1Triggered by heroin use Vital Signs Most recent to oldest [Reference Range]: 1 Height 148 cm (07/08/21 10:01 AM) Weight 63.5 kg (07/08/21 10:01 AM) Body Mass Index [18.5-24.99] 28.99 *H* (07/08/21 10:01 AM) Blood Pressure [90-138/55-84 mm Hg] 120/ 69mm Hg (07/08/21 10:01 AM) Blood pressure sites Arm, right (07/08/21 10:01 AM) Weight Obtained Via Standing scale (07/08/21 10:01 AM) Social History Social History Type Response Smoking Status Never smoker entered on: 12/21/13 Sex
--- OUTSIDE RECORDS SUMMARY | 2023-09-19 03:01 | XMS_ITS | Continuity of Care Document ---
Author Name Unknown Organization [facility] Leif Jamison [employer] [facility] Address [address] [place] [address], [address] [place] [address]- Care Team Providers Care Lead Systems Developer Name Role Phone Deidre Moses NP Primary Care Physician [place] [facility]/15[place] - 08/14/21 [facility] [employer] [address] [facility], [address] [place] [address]- Allergies, Adverse Reactions, Alerts No Known Medication [...] 0 Refills, Maintenance, 08/14/21 10:49:00 EST, Tablet, [facility]/pharmacy #[id number], Partial fill upon patient request if the [...] 08/14/21 10:49:00 EST, Route to Pharmacy Electronically, [facility]/pharmacy #[id number], 148, cm, 07/26/21 9:02:00 [...]
--- OUTSIDE RECORDS SUMMARY | 2023-09-19 03:01 | XMS_ITS | Continuity of Care Document ---
Author Name Unknown Organization [facility] Leifelsie Jamison [employer] Address [address] [place] [address], [address] [address]- Care Team Providers Care Production Scheduler Name Role Phone Deidre Moses NP Primary Care Physician [phone] Encounter [facility] Date(s): 05/28/21 - 06/28/21 [facility] [employer] [address] [facility], [address] [place], [place] [address] Attending Physician: Gaetano LISA [OB], Li Moody [...] Anxiety,05/12/21 18:23:00 EDT, Route to Pharmacy Electronically, [facility]/pharmacy #[id number], 148, cm, 05/12/21 16:49:00 EDT, Height, 66, kg, 05/10/21 21:34:00 EDT, Dry... Start Date: 05/12/21 Status: Ordered FLUoxetine 20 mg oral capsule 20 mg, 1, capsule, By Mouth, Daily, # 30 capsule, Refills 0, Tot. Refills 0, Maintenance, 05/16/21 16:50:00 EDT, Route to Pharmacy Electronically, [facility]/pharmacy #[id number], Partial fill upon patient request if the [...] 06/10/22 17:04:00 EDT, 06/15/21 16:54:00 EDT, Tablet, [facility]/pharmacy #[id number], Partial fill upon patient request if [...] 06/10/21 17:03:00 EDT, Route to Pharmacy Electronically, [facility]/pharmacy #[id number], Partial fill upon patient request if the prescription is for a schedule II... Start Date: 06/10/21 Status: Ordered Zofran 4 mg oral tablet 1 tablet = 4 mg, By Mouth, Every 8 hours, # 12 tablet, 0 Refills, Maintenance, 12/30/20 22:22:00 EDT, Tablet, [facility]/pharmacy #0629, Partial fill upon patient request if the [...]
--- OUTSIDE RECORDS SUMMARY | 2023-09-19 03:01 | XMS_ITS | Continuity of Care Document ---
Author Name Unknown Organization [facility] ter Address [address] [place] [address]- Care Team Providers Care Optoelectronic Technician Name Role Phone Aurelia SWEENEY, Deidre Primary Care Physician [phone] Encounter [facility] [place] Date(s): 10/10/19 - 10/10/[address] [address]- [facility] Attending Physician: Radha Wharton MD Allergies, Adverse Reactions, Alerts No Known Medication Allergies Medications albuterol CFC free 90 mcg/inh inhalation aerosol 2, puffs, Inhalation, Every 4 hours, PRN, # 18 Gm, Refills 0, Tot. Refills 0, Maintenance, 03/27/1613:50:39, Aerosol, Print Requisition, Compound Start Date: 03/27/16 Status: Ordered Multivitamins By Mouth, Daily, 0 Refills, Maintenance, 08/24/18 12:32:54 EST Start Date: 08/24/18 Status: Ordered Reglan 10 mg oral tablet 1 tablet = 10 mg, By Mouth, 3 times a day before meals and bedtime, 0 Refills, Maintenance, 04/02/19 7:57:51 EDT Start Date: 04/02/19 Status: Ordered Zantac 0 Refills, Maintenance, 04/02/19 7:57:55 EDT Start Date: 04/02/19 Status: Ordered Problem List Condition Effective Dates Status Health Status Inform ant Asthma(Confirmed) 1 03/26/16 Active Depression with anxiety(Confirmed) Active Polysubstance abuse(Confirmed) Active 1Triggered by heroin use Social History Social History Type Response Smoking Status Never smoker entered on: 12/21/13 Sex
--- OUTSIDE RECORDS SUMMARY | 2023-09-19 03:01 | XMS_ITS | Continuity of Care Document ---
Author Name Unknown Organization [facility] Leif Jamison [employer] Address [address] [place] [address], [address] [place] [address]- Care Team Providers Care High School Music Instructor Name Role Phone Aurelia SWEENEY, Deidre Primary Care Physician [phone] Encounter [facility] Date(s): 07/29/21 - 08/28/21 [facility] Leifelsie Bonnermysportgroups [facility] [address] [facility], [address] [place] [address]- Allergies, Adverse Reactions, Alerts No Known Medication [...] 0 Refills, Maintenance, 08/14/21 10:49:00 EST, Tablet, [facility]/pharmacy #[id number], Partial fill upon patient request if the [...] 08/14/21 10:49:00 EST, Route to Pharmacy Electronically, [facility]/pharmacy #[id number], 148, cm, 07/26/21 9:02:00 EST, Height, 64.7, kg, 07/23/21 18:44:00 EST, Dry Weight Start Date: 08/14/21 Status: Ordered Vivitrol 380 mg intramuscular injection, extended release = 380 mg, Intramuscular, Every 28 days, # 1 each, 0 Refills, Maintenance, 08/19/21 12:39:00 EST, [facility], Partial fill upon patient [...]
--- OUTSIDE RECORDS SUMMARY | 2023-09-19 03:01 | XMS_ITS | Continuity of Care Document ---
Author Name Unknown Organization [facility] Leif Jamison [employer] [facility] Address [address] [place] [address], [address]t [place] [address]- Care Team Providers Care Clinical Data Associate Name Role Phone Aurelia SWEENEY, Deidre Primary Care Physician [phone] [facility] Date(s): 09/16/21 - 09/23/21 [facility] Buffaloelsie BonnerFirst[employer] [facility] [address] [facility], [address] [place] [address]- Attending Physician: Nadya Sharma MD Referring Physician: Gaetano LISA [OB], Li Moody [...] Refills, Maintenance, 08/14/21 10:49:00 EST, Tablet, [id number], Partial fill upon patient request if the [...] 08/14/21 10:49:00 EST, Route to Pharmacy Electronically, [facility]/pharmacy #[id number], 148, cm, 07/26/21 9:02:00 EST, [...]
--- OUTSIDE RECORDS SUMMARY | 2023-09-19 03:02 | XMS_ITS | Continuity of Care Document ---
Author Name Unknown Organization [facility] bellGluc[facility] Address [address] [place] [address], [address]t [place] [address]- Care Team Providers Care Gas Station Attendant Name Role Phone Deidre Moses NP Primary Care Physician [phone] Encounter [facility] Date(s): 05/20/21 - 05/27/21 [facility] BonnerZupp[facility] [address] [place] [address], [address] [place], [place] [address] Attending Physician: Gaetano LISA [OB], Li Moody [...] Anxiety,05/12/21 18:23:00 EDT, Route to Pharmacy Electronically, [facility]/pharmacy #[id number], 148, cm, 05/12/21 16:49:00 EDT, Height, 66, kg, 05/10/21 21:34:00 EDT, Dry... Start Date: 05/12/21 Status: Ordered FLUoxetine 20 mg oral capsule 20 mg, 1, capsule, By Mouth, Daily, # 30 capsule, Refills 0, Tot. Refills 0, Maintenance, 05/16/21 16:50:00 EDT, Route to Pharmacy Electronically, [facility]/pharmacy #2330, Partial fill upon patient request if the prescription is for a schedule II opioid drMisty.. Start Date: 05/16/21 Status: Ordered KlonoPIN 0.5 [...] 06/15/21 16:54:00 EDT, 05/16/21 16:54:00 EDT, Tablet, [facility]/pharmacy #2330, Partial fill upon patient request if the [...] 0 Refills, Maintenance, 12/30/20 22:22:00 EDT, Tablet, [facility]/pharmacy #4553, Partial fill upon patient request if the [...]
--- OUTSIDE RECORDS SUMMARY | 2023-09-19 03:02 | XMS_ITS | Continuity of Care Document ---
Author Name Unknown Organization [facility] Address [address] [place] [address]- Care Team Providers Care Fancy Sewer Name Role Phone Deidre Moses NP Primary Care Physician Encounter [facility] Date(s): 06/04/21 - 07/06/[address] [address] Attending Physician: Gaetano LISA [OB], Li [...] Anxiety,05/12/21 18:23:00 EDT, Route to Pharmacy Electronically, [facility]/pharmacy #[id number], 148, cm, 05/12/21 16:49:00 EDT, Height, 66, kg, 05/10/21 21:34:00 EDT, Dry... Start Date: 05/12/21 Status: Ordered FLUoxetine 20 mg oral capsule 20 mg, 1, capsule, By Mouth, Daily, # 30 capsule, Refills 0, Tot. Refills 0, Maintenance, 05/16/21 16:50:00 EDT, Route to Pharmacy Electronically, [facility]/pharmacy #[id number], Partial fill upon patient request if the [...] 06/10/22 17:04:00 EDT, 06/15/21 16:54:00 EDT, Tablet, [facility]/pharmacy #7146, Partial fill upon patient request if the [...] tablet, Refills 0, Route to Pharmacy Electronically, [facility] STORE 79020, 148, cm, 06/24/21 16:00:00 EDT, Height, 66, kg, 05/10/21 21:34:00 EDT, Dry Weight Start Date: 07/04/21 Status: Ordered Zofran 4 mg oral tablet 1 tablet = 4 mg, By Mouth, Every 8 hours, # 12 tablet, 0 Refills, Maintenance, 12/30/20 22:22:00 EDT, Tablet, [facility], Partial fill upon patient request if the [...]
--- OUTSIDE RECORDS SUMMARY | 2023-09-19 03:02 | XMS_ITS | Continuity of Care Document ---
Author Name Unknown Organization [facility] Address [address] [place] [address]- Care Team Providers Care Pole Setter Name Role Phone Deidre Moses NP Primary Care Physician Encounter [facility] Date(s): 06/06/21 - 07/06/[address] [address]- Attending Physician: Valeria Eagle Admitting Physician: AdmtrValeria Referring Physician: Admtr, ArJuancho Allergies, Adverse Reactions, Alerts No Known Medication [...] Anxiety,05/12/21 18:23:00 EDT, Route to Pharmacy Electronically, [facility]/pharmacy #[id number], 148, cm, 05/12/21 16:49:00 EDT, Height, 66, kg, 05/10/21 21:34:00 EDT, Dry... Start Date: 05/12/21 Status: Ordered FLUoxetine 20 mg oral capsule 20 mg, 1, capsule, By Mouth, Daily, # 30 capsule, Refills 0, Tot. Refills 0, Maintenance, 05/16/21 16:50:00 EDT, Route to Pharmacy Electronically, [facility]/pharmacy #3385, Partial fill upon patient request if the [...] 06/10/22 17:04:00 EDT, 06/15/21 16:54:00 EDT, Tablet, [facility]/pharmacy #7145, Partial fill upon patient request if the [...] tablet, Refills 0, Route to Pharmacy Electronically, [facility] STORE 23910, 148, cm, 06/24/21 16:00:00 EDT, Height, 66, kg, 05/10/21 21:34:00 EDT, Dry Weight Start Date: 07/04/21 Status: Ordered Zofran 4 mg oral tablet 1 tablet = 4 mg, By Mouth, Every 8 hours, # 12 tablet, 0 Refills, Maintenance, 12/30/20 22:22:00 EDT, Tablet, [facility]/pharmacy #0696, Partial fill upon patient request if the [...]
--- OUTSIDE RECORDS SUMMARY | 2023-09-19 03:02 | XMS_ITS | Continuity of Care Document ---
Author Name Unknown Organization [facility] Address [address] [place] [address], [address] [place] [address]- Care Team Providers Care Backpackers Manager Name Role Phone Deidre Moses NP Primary Care Physician Encounter [facility] Date(s): 05/27/21 - 06/03/21 [facility] BonnerHost[facility] [address] [facility], [address] [place], [place] [address] Attending Physician: Gaetano LISA [OB], Li Moody [...] Anxiety,05/12/21 18:23:00 EDT, Route to Pharmacy Electronically, [facility]/pharmacy #6907, 148, cm, 05/12/21 16:49:00 EDT, Height, 66, kg, 05/10/21 21:34:00 EDT, Dry... Start Date: 05/12/21 Status: Ordered FLUoxetine 20 mg oral capsule 20 mg, 1, capsule, By Mouth, Daily, # 30 capsule, Refills 0, Tot. Refills 0, Maintenance, 05/16/21 16:50:00 EDT, Route to Pharmacy Electronically, [facility]/pharmacy #2334, Partial fill upon patient request if the [...] 06/15/21 16:54:00 EDT, 05/16/21 16:54:00 EDT, Tablet, [facility]/pharmacy #2332, Partial fill upon patient request if the [...] 0 Refills, Maintenance, 12/30/20 22:22:00 EDT, Tablet, [facility]/pharmacy #9305, Partial fill upon patient request if the [...]
--- OUTSIDE RECORDS SUMMARY | 2023-09-19 03:02 | XMS_ITS | Continuity of Care Document ---
Author Name Unknown Organization [facility] Leif Jamison [employer] [facility] Address [address] [place] [address], 4t [place] [address]- Care Team Providers Care Pocket And Pulley Machine Operator Name Role Phone Deidre Moses NP Primary Care Physician [facility] Date(s): 09/04/21 - 10/04/21 [facility] Leif Bonner's [facility] [address] [facility], [address] [place] [address]- Allergies, Adverse Reactions, Alerts No Known Medication [...] 0 Refills, Maintenance, 08/14/21 10:49:00 EST, Tablet, [facility]/pharmacy #7412, Partial fill upon patient request if the [...] tablet, Refills 0, Route to Pharmacy Electronically, [facility] 355[facility], 148, cm, 07/26/21 9:02:00 EST, Height, 64.7, [...]
--- OUTSIDE RECORDS SUMMARY | 2023-09-19 03:02 | XMS_ITS | Continuity of Care Document ---
Author Name Unknown Organization [facility] Leif Jamison [employer] [facility] Address [address] [place] [address], [address] [address]- Care Team Providers Care Digital Artist Name Role Phone Deidre Moses NP Primary Care Physician Encounter [facility] Date(s): 09/09/21 - 10/11/21 [facility] Leifelsie BonnerNew Horizons Entertainments [facility] [address] [facility], [address] [place] [address]- Attending Physician: Gaetano LISA [OB], Li Moody [...] tablet, Refills 0, Route to Pharmacy Electronically, [facility] 460[facility], 148, cm, 07/26/21 9:02:00 EST, Height, 64.7, [...]
--- OUTSIDE RECORDS SUMMARY | 2023-09-19 03:02 | XMS_ITS | Continuity of Care Document ---
Author Name Unknown Organization [facility] Address [address] [place] [address]- Care Team Providers Care Developmental Mathematics Professor Name Role Phone Deidre Moses NP Primary Care Physician En[place] [facility] Date(s): 05/29/21 - 05/29/[address] [address]- Discharge Disposition: A-D/C Home Attending Physician: Jasiel Gonzalez MD Admitting Physician: Jasiel Gonzalez MD Referring Physician: Not on Staff, Referring MD Allergies, Adverse Reactions, Alerts No Known [...] EDT, Route to Pharmacy Electronically, [facility]/pharmacy #[id number], 148, cm, 05/12/21 16:49:00 EDT, Height, 66, kg, 05/10/21 21:34:00 EDT, Dry... Start Date: 05/12/21 Status: Ordered FLUoxetine 20 mg oral capsule 20 mg, 1, capsule, By Mouth, Daily, # 30 capsule, Refills 0, Tot. Refills 0, Maintenance, 05/16/21 16:50:00 EDT, [facility], Partial fill upon patient request if [...] EDT, 05/16/21 16:54:00 EDT, Tablet, [facility]/pharmacy #2337, Partial fill upon patient request if the [...] Maintenance, 12/30/20 22:22:00 EDT, Tablet, [facility]/pharmacy #[id number], Partial fill upon patient request if the prescription is for a schedule II opioid drug., 149, cm, 12/30/20 12:25:00 EDT,... Start Date: 12/30/20 Status: Ordered Problem List Condition Effective Dates Status Health Status Inform ant Asthma(Confirmed) 1 03/26/16 Active Depression with anxiety(Confirmed) Active Polysubstance abuse(Confirmed) Active 1Triggered by heroin use Vital Signs Most recent to oldest [Reference Range]: 1 2 Oxygen Saturation [94-100 %] 100 % (05/29/21 1:20 PM) 100 % (05/29/21 1:18 PM) Pulse Rate [55-90 bpm] 85 bpm (05/29/21 1:20 PM) 85 bpm (05/29/21 1:18 PM) Blood Pressure [90-138/55-84 mm Hg] 114/ 68mm Hg (05/29/21 1:20 PM) 114/68mm Hg (05/29/21 1:18 PM) Respiratory Rate [16-30 br/min] 18 br/mi n (05/29/21 1:20 PM) 18 br/min (05/29/21 1:18 PM) Temperature [96.8-100.4 DegF] 98.8 DegF (05/29/21 1:20 PM) 98.8 DegF (05/29/21 1:18 PM) Mode of Delivery (Oxygen) Room air (05/29/21 1:20 PM) Room air (05/29/21 1:18 PM) Blood pressure sites Arm, left (05/29/21 1:20 PM) Temperature Route Oral (05/29/21 1:20 PM) Oral (05/29/21 1:18 PM) Social History Social History Type Response Smoking Status Never smoker entered on: 12/21/13 Sex
--- OUTSIDE RECORDS SUMMARY | 2023-09-19 03:02 | XMS_ITS | Continuity of Care Document ---
Author Name Unknown Organization [facility] Leif Jamison [employer] Address [address] [place] [address], 4t [place] [address]- Care Team Providers Care Financial Supervisor Name Role Phone Aurelia SWEENEY, Deidre Primary Care Physician [phone] Encounter [facility] Date(s): 07/24/21 - 08/23/21 [facility] Leif Bon[facility]Tax [employer] [facility] [address] [facility], [address] [place] [address]- Allergies, Adverse Reactions, Alerts No Known Medication [...] 0 Refills, Maintenance, 08/14/21 10:49:00 EST, Tablet, [facility]/pharmacy #[id number], Partial fill upon patient request if the [...] 08/14/21 10:49:00 EST, Route to Pharmacy Electronically, [facility]/pharmacy #[id number], 148, cm, 07/26/21 9:02:00 EST, [...]
--- OUTSIDE RECORDS SUMMARY | 2023-09-19 03:02 | XMS_ITS | Continuity of Care Document ---
Author Name Unknown Organization [facility] Address [address] [place] [address]- Care Team Providers Care Safety Engineer Pressure Vessels Name Role Phone Deidre Moses NP Primary Care Physician [phone] Encounter [facility] Date(s): 07/25/21 - 08/24/[address] [address]- Attending Physician: Valeria Eagle Admitting Physician: AdmtrValeria Referring Physician: AdmtrValeria Allergies, Adverse Reactions, Alerts No Known Medication [...] Refills, Maintenance, 08/14/21 10:49:00 EST, Tablet, [facility], Partial fill upon patient request if the [...] 08/14/21 10:49:00 EST, Route to Pharmacy Electronically, [facility]/pharmacy #[id number], 148, cm, 07/26/21 9:02:00 EST, Height, 64.7, kg, 07/23/21 18:44:00 EST, Dry Weight Start Date: 08/14/21 Status: Ordered Vivitrol 380 mg intramuscular injection, extended release = 380 mg, Intramuscular, Every 28 days, # 1 each, 0 Refills, Maintenance, 08/19/21 12:39:00 EST, [facility], Partial fill upon patient [...]
--- OUTSIDE RECORDS SUMMARY | 2023-09-19 03:02 | XMS_ITS | Continuity of Care Document ---
Author Name Unknown Organization [facility] Leifelsie bellMarketect[employer] Address [address] [place] [address], [address] [place] [address]- Care Team Providers Care Research Computing Specialist Name Role Phone Deidre Moses NP Primary Care Physician [phone] En[place] [facility] Date(s): 05/28/21 - 06/28/21 [facility] [employer] [address] [facility], [address] [place], [place] [address] Attending Physician: Gaetano LISA [OB], Li [...] Anxiety,05/12/21 18:23:00 EDT, Route to Pharmacy Electronically, [facility]/pharmacy #[id number], 148, cm, 05/12/21 16:49:00 EDT, Height, 66, kg, 05/10/21 21:34:00 EDT, Dry... Start Date: 05/12/21 Status: Ordered FLUoxetine 20 mg oral capsule 20 mg, 1, capsule, By Mouth, Daily, # 30 capsule, Refills 0, Tot. Refills 0, Maintenance, 05/16/21 16:50:00 EDT, Route to Pharmacy Electronically, [facility]/pharmacy #4637, Partial fill upon patient request if the [...] 06/10/22 17:04:00 EDT, 06/15/21 16:54:00 EDT, Tablet, [facility]/pharmacy #7111, Partial fill upon [...] 06/10/21 17:03:00 EDT, Route to Pharmacy Electronically, [facility]/pharmacy #[id number], Partial fill upon patient request if the prescription is for a schedule II... Start Date: 06/10/21 Status: Ordered Zofran 4 mg oral tablet 1 tablet = 4 mg, By Mouth, Every 8 hours, # 12 tablet, 0 Refills, Maintenance, 12/30/20 22:22:00 EDT, Tablet, [facility]/pharmacy #0614, Partial fill upon patient request if the [...]
--- OUTSIDE RECORDS SUMMARY | 2023-09-19 03:02 | XMS_ITS | Continuity of Care Document ---
Author Name Unknown Organization [facility] Address [address] [place] [address]- Care Team Providers Care Grinding Wheel Dresser Name Role Phone Deidre Moses NP Primary Care Physician Encounter [facility] Date(s): 05/29/21 - 06/28/[address] [address] Allergies, Adverse Reactions, Alerts No Known Medication [...] 18:23:00 EDT, Route to Pharmacy Electronically, [facility]/pharmacy #[id number], 148, cm, 05/12/21 16:49:00 EDT, Height, 66, kg, 05/10/21 21:34:00 EDT, Dry... Start Date: 05/12/21 Status: Ordered FLUoxetine 20 mg oral capsule 20 mg, 1, capsule, By Mouth, Daily, # 30 capsule, Refills 0, Tot. Refills 0, Maintenance, 05/16/21 16:50:00 EDT, Route to Pharmacy Electronically, [facility]/pharmacy #8652, Partial fill upon patient request if the [...] 17:04:00 EDT, 06/15/21 16:54:00 EDT, Tablet, [facility]/pharmacy #7111, Partial fill upon patient request if [...] 17:03:00 EDT, Route to Pharmacy Electronically, [facility]/pharmacy #[id number], Partial fill upon patient request if the prescription is for a schedule II... Start Date: 06/10/21 Status: Ordered Zofran 4 mg oral tablet 1 tablet = 4 mg, By Mouth, Every 8 hours, # 12 tablet, 0 Refills, Maintenance, 12/30/20 22:22:00 EDT, Tablet, [facility]/pharmacy #9967, Partial fill upon patient request if the [...]
--- OUTSIDE RECORDS SUMMARY | 2023-09-19 03:02 | XMS_ITS | Continuity of Care Document ---
Author Name Unknown Organization [facility] Address [address] [place] [address]- Care Team Providers Care Distributor Cleaner Name Role Phone Deidre Moses NP Primary Care Physician En[facility] Date(s): [facility]14/22 [facility] [address] [place] [address]- Attending Physician: Will Hicks Allergies, Adverse Reactions, Alerts No Known Medication [...] 0 Refills, Maintenance, 08/14/21 10:49:00 EST, Tablet, [facility]/pharmacy #3343, Partial fill upon patient request if the [...] tablet, Refills 0, Route to Pharmacy Electronically, [facility] 92290, 148, cm, 07/26/21 9:02:00 EST, Height, 64.7, kg, 07/23/21 18:44:00 EST, Dry Weight Start Date: 09/25/21 Status: Ordered Vivitrol 380 mg intramuscular injection, extended release See Instructions, INJECT 380 MG INTO THE MUSCLE EVERY 28 DAYS, # 1 kit, 0 Refills, [facility], 148, cm, 07/26/21 9:02:00 EST, Height, 64.7, kg, 07/23/21 18:44:00 EST, Dry Weight Start Date: 09/03/21 Status: Ordered Problem List Condition Confirmation Course Effective Dates Status Health St atus Informant Asthma 1 Confirmed 03/26/16 Active Depression with anxiety Confirmed Active Opioid use disorder Confirmed Active 1Triggered by heroin use Social History Social History Type Response Smoking Status Never smoker entered on: 12/21/13 Sex Patient Care team information Care Team Personnel Name: Deidre Moses NP Position: [facility] Outreach Member Role: PCP Address: Address: [address] [place] [address] [place] [address]- Care Team Related Persons Name: JAMAR EHSAN Address: [employer] Address: home [address] [place] [address] [place] Name: JAMAR DONAL Address: home [address] [place] [address] Name: CONOR ROLDAN Address: [employer] Address: [address] [place] [address] [place] Name: SHELLIE VALENZUELA Address: [address] [address] Name: JENNA VALENZUELA Address: [address] [address]
--- OUTSIDE RECORDS SUMMARY | 2023-09-19 03:02 | XMS_ITS | Continuity of Care Document ---
Author Name Unknown Organization [facility] Address [address] [place] [address]- Care Team Providers Care Steel Die Press Set Up Operator Name Role Phone Deidre Moses NP Primary Care Physician [phone] [place] [facility] Date(s): 02/19/22 - 02/19/[address] [address]- Discharge Disposition: A-D/C [facility] Attending Physician: Radha Schroeder MD Admitting Physician: Alexandre LISA, Radha Referring Physician: Not on Staff, Referring MD [...] Refills, Maintenance, 08/14/21 10:49:00 EST, Tablet, [facility], Partial fill upon patient request if the [...] tablet, Refills 0, Route to Pharmacy Electronically, [facility] 52907, 148, cm, 07/26/21 9:02:00 EST, Height, 64.7, [...] use disorder(Confirmed) Active 1Triggered by heroin use Results Radiology Reports * Exam Date Time Procedure Performing Provider Status 02/19/22 2:43 PM Chest Portable Kimberley Ledesma (Verified) Notes: (Chest Portable) Reason For Exam: Shortness of Breath RESULT: Chest Portable Chest Portable Hx of Present Illness: pt BIBA with complains of shortness of breath. Pt was checking in at the detox facility for heroin detox when she was found to be saturating between 80-85% on RA. EMS placed pton 3 liters via NC sats over 94% achieved. Pt denies chest pain, fevers.; Reason: Shortness of Breath; Clinical Question(s): Pneumonia COMPARISON: None. FINDINGS: LINES AND TUBES: None. LUNGS AND PLEURA: Clear lungs. Normal pulmonary vascularity. No pleural effusion. No pneumothorax. HEART, MEDIASTINUM AND JOSH: Heart is normal in size. Normal upper mediastinal and hilar contour. BONES AND SOFT TISSUES: No acute abnormality. IMPRESSION: No acute abnormality. WSN: [id number] Ordering Physician: Radha Schroeder Dictated By: Jadiel Spence MD Dictated Date/Time: 02/19/22 2:44 pm Reviewed By: Jadiel Spence MD Signed By: Jadiel Spence MD Signed Date/Time: 02/19/22 2:44 pm Transcribed By: SELIN Transcribed Date/Time: 02/19/22 2:44 pm Vital Signs Most recent to oldest [Reference Range]: 1 Height 150 cm (02/19/22 1:42 PM) Weight 58 kg (02/19/22 1:42 PM) Oxygen Saturation [94-100 %] 96 % (02/19/22 1:42 PM) Pulse Rate [55-90 bpm] 72 bpm (02/19/22 1:42 PM) Blood Pressure [90-138/55-84 mm Hg] 123/ 74mm Hg (02/19/22 1:42 PM) Respiratory Rate [16-30 br/min] 18 br/mi n (02/19/22 1:42 PM) Temperature [96.8-100.4 DegF] 97.8 DegF (02/19/22 1:42 PM) Liters per Minute 3 L/min (02/19/22 1:42 PM) Mode of Delivery (Oxygen) Nasal cannula (02/19/22 1:42 PM) Blood pressure sites Arm, left (02/19/22 1:42 PM) Temperature Route Temporal (02/19/22 1:42 PM) Dry Weight 58 kg (02/19/22 1:42 PM) Dry Weight Obtained Via Patient/family s tated (02/19/22 1:42 PM) Social History Social History Type Response Smoking Status Never smoker entered on: 12/21/13 Sex
--- OUTSIDE RECORDS SUMMARY | 2023-09-19 03:02 | XMS_ITS | Continuity of Care Document ---
Author Name Unknown Organization [facility] Address [address] [place] [address]- Care Team Providers Care Ripsaw Grader Name Role Phone Deidre Moses NP Primary Care Physician Encounter [facility] N[facility] [id number] Date(s): 06/30/22 - 07/30/22 [facility] [address] [place] [address]- Attending Physician: Valeria Eagle Admitting Physician: Admtr, Valeria Referring Physician: Admtr, Ar8 Allergies, Adverse Reactions, Alerts No Known Medication [...] Refills, Maintenance, 08/14/21 10:49:00 EST, Tablet, [id number], Partial fill upon patient request if the [...] tablet, Refills 0, Route to Pharmacy Electronically, [facility], 148, cm, 07/26/21 9:02:00 EST, Height, 64.7, [...] Team Personnel Name: Deidre Moses NP Position: [facility] Outreach Member Role: PCP Address: Address: [address] [place] [address]- Care Team Related Persons Name: EHSAN ROLDAN Address: [facility] Address: home [address] [place] [address] Name: DONAL ROLDAN Address: home [address] [place] [address] Name: CONOR ROLDAN Address: [facility] Address: home [address] [facility] [place] [address] Name: SHELLIE VALENZUELA Address: [address] [address] Name: JENNA VALENZUELA Address: [address] [address]
--- OUTSIDE RECORDS SUMMARY | 2023-09-19 03:02 | XMS_ITS | Continuity of Care Document ---
Author Name Unknown Organization [facility] Address [address] [place] [address]- Care Team Providers Care Welder Operator Name Role Phone eDidre Moses NP Primary Care Physician [phone] Encounter [facility] Date(s): 05/14/23 - 05/14/[address] [address]- Encounter Diagnosis Person with feared complaint, no diagnosis made(Final) - 05/14/23 Discharge Disposition: A-D/C Home Attending Physician: Paul Waldrop DO Admitting Physician: Paul Waldrop DO Referring Physician: Not on Staff, Referring MD [...] Refills, Maintenance, 08/14/21 10:49:00 EST, Tablet, [id number], Partial fill upon patient request if the [...] tablet, Refills 0, Route to Pharmacy Electronically, [id number], 148, cm, 07/26/21 9:02:00 EST, Height, 64.7, [...] disorder Confirmed Active 1Triggered by heroin use Results Radiology Reports * Exam Date Time Procedure Performing Provider Status 05/14/23 5:55 PM Pelvis 1 or 2 Views Berenice Valdes ; Auth (Verified) Notes: (Pelvis 1 or 2 Views) Reason For Exam: Foreign Body RESULT: Pelvis 1 or 2 Views Pelvis 1 or 2 Views Hx of Present Illness: Question foreign body. COMPARISON: None. FINDINGS: There is no fracture or dislocation. Normal hips and sacroiliac joints. Moderate amount of stool within the visualized colon and rectum. IMPRESSION: Moderate amount of stool within the visualized colon and rectum. No radiopaque foreign body identified. WSN: [id number] Ordering Physician: Cezar Marmolejo Dictated By: Zhen Khanna MD Dictated Date/Time: 05/14/23 5:57 pm Reviewed By: Zhen Khanna MD Signed By: Zhen Khanna MD Signed Date/Time: 05/14/23 5:57 pm Transcribed By: SELIN Transcribed Date/Time: 05/14/23 5:55 pm Vital Signs Most recent to oldest [Reference Range]: 1 Height 149 cm (05/14/23 5:12 PM) Weight 48.2 kg (05/14/23 5:12 PM) Oxygen Saturation [94-100 %] 96 % (05/14/23 5:12 PM) Pulse Rate [55-90 bpm] 93 bpm *H* (05/14/23 5:12 PM) Blood Pressure [90-138/55-84 mm Hg] 110/ 76mm Hg (05/14/23 5:12 PM) Respiratory Rate [16-30 br/min] 18 br/mi n (05/14/23 5:12 PM) Temperature [96.8-100.4 DegF] 96.8 DegF (05/14/23 5:12 PM) Mode of Delivery (Oxygen) Room air (05/14/23 5:12 PM) Blood pressure sites Arm, left (05/14/23 5:12 PM) Dry Weight 48.2 kg (05/14/23 5:12 PM) Weight Obtained Via Standing scale (05/14/23 5:12 PM) Dry Weight Obtained Via Standing scale (05/14/23 5:12 PM) Social History Social History Type Response Smoking Status Never smoker entered on: 12/21/13 Sex Patient Care team information Care Team Personnel Name: Deidre Moses NP Position: [facility] Outreach Member Role: PCP Address: Address: [address] [place] [address] [place] [address]- Name: Paul Waldrop DO Position: [facility] ED Medicine MD Member Role: Admitting Physician Address: Address: [address] [place] [address] [place] [address]- Name: Perlita Wood Position: [facility] ED OA Member Role: Veterinary Technician Name: Jammie York RN Position: [facility] ED RN W/OE and Tasks Member Role: Patient Care Provider Name: Melissa Richards Position: [facility] Associate Professional Member Role: Physician Stationary Engineer Refrigeration Address: Address: [address] [place] [address] [place] [address]- Care Team Related Persons Name: EHSAN ROLDAN Address: [employer] Address: home [address] [place] [address] [place] Name: DONAL ROLDAN Address: home [address] [place] [address] Name: JESS ROLDANIE Address: [employer] Address: home [address] [place] [address] Name: SHELLIE VALENZUELA Address: home [address] [place] [address] Name: JENNA VALENZUELA Address: home [address] [place] [address]
--- OUTSIDE RECORDS SUMMARY | 2023-09-19 03:02 | XMS_ITS | Continuity of Care Document ---
Author Name Unknown Organization [facility] Address [address] [place] [address]- Care Team Providers Care Boilermaker Industrial Boilers Name Role Phone Aurelia SWEENEY, Deidre Primary Care Physician [phone] [place] [facility] [place] - 08/07/[address] [address] Attending Physician: Mike LISA, November Referring Physician: Marty Davalos MD Allergies, Adverse Reactions, Alerts No Known [...] 0 Refills, Maintenance, 07/08/21 10:15:00 EDT, Tablet, [facility]/pharmacy #[id number], Partial fill upon patient request if the prescription is for a schedule II opioid drug., 148, cm, 07/08/21... Start Date: 07/08/21 Status: Ordered cloNIDine 0.1 mg oral tablet 0.1 mg, By Mouth, Every 6 hours, PRN, # 30 tablet, Refills 1, Tot. Refills 1, Maintenance, Anxiety,05/12/21 18:23:00 EDT, Route to Pharmacy Electronically, [facility]/pharmacy #[id number], 148, cm, 05/12/21 16:49:00 EDT, Height, 66, kg, 05/10/21 21:34:00 EDT, Dry... Start Date: 05/12/21 Status: Ordered FLUoxetine 20 mg oral capsule 20 mg, 1, capsule, By Mouth, Daily, # 30 capsule, Refills 0, Tot. Refills 0, Maintenance, 05/16/21 16:50:00 EDT, Route to Pharmacy Electronically, [facility]/pharmacy #[id number], Partial fill upon patient request if [...] 17:04:00 EDT, 06/15/21 16:54:00 EDT, Tablet, [facility]/pharmacy #[id number], Partial fill upon patient request [...] 30 tablet, Refills 0, Tot. Refills 0, 07/29/21 17:21:00 EST, Route to Pharmacy Electronically, [facility]/pharmacy #[id number], 148, cm, 07/26/21 9:02:00 EST, Height, 64.7, kg, 07/23/21 18:44:00 EST, Dry Weight Start Date: 07/29/21 Status: Ordered Problem List Condition Effective Dates Status Health Status Inform ant Asthma(Confirmed) 1 03/26/16 Active Depression with anxiety(Confirmed) Active Opioid use disorder(Confirmed) Active 1Triggered by heroin use Social History Social History Type Response Smoking Status Never smoker entered on: 12/21/13 Sex
--- OUTSIDE RECORDS SUMMARY | 2023-09-19 03:02 | XMS_ITS | Continuity of Care Document ---
Author Name Unknown Organization [facility] Jamison ne[facility]ifts [facility] Address [address] [place] [address], [address] [place] [address]- Care Team Providers Care Traverse Rod Assembler Name Role Phone Deidre Moses NP Primary Care Physician [phone] [place] [facility] [place] 10[place]16[place]21 [facility] Leifelsie BonnereÇifts [facility] [address] [facility] [place], [place] [address] Attending Physician: Valeria Eagle Admitting Physician: AdmValeria long Referring Physician: AdmtrValeria Allergies, Adverse Reactions, Alerts [...] Refills, Maintenance, 08/14/21 10:49:00 EST, Tablet, [id number], Partial fill upon patient request if the [...] tablet, Refills 0, Route to Pharmacy Electronically, [facility], 148, cm, 07/26/21 9:02:00 EST, Height, 64.7, [...]
--- OUTSIDE RECORDS SUMMARY | 2023-09-19 03:02 | XMS_ITS | Continuity of Care Document ---
Author Name Unknown [facility] Address [address] [place] [address]- Care Team Providers Care Director Insurance Name Role Phone Deidre Moses NP Primary Care Physician [phone] Encounter [facility] Date(s): 10/30/22 - 11/29/22 [facility] Adult [facility] [address] [place] [address]- Allergies, Adverse Reactions, Alerts No Known Medication [...] 0 Refills, Maintenance, 08/14/21 10:49:00 EST, Tablet, [facility]/pharmacy #[id number], Partial fill upon patient request if the [...] tablet, Refills 0, Route to Pharmacy Electronically, [facility], 148, cm, 07/26/21 9:02:00 EST, Height, 64.7, [...] Team Personnel Name: Deidre Moses NP Position: [facility] Outreach Member Role: PCP Address: Address: [address] [facility] [place] [address]- Care Team Related Persons Name: EHSAN ROLDAN Address: [facility] Address: home [address] [place] [address] [place] Name: DONAL ROLDAN Address: home [address] [place] [address] Name: CONOR ROLDAN Address: [facility] Address: [address] [place] [address] [place] Name: SHELLIE VALENZUELA Address: home [address] [place], [place] Name: JENNA VALENZUELA Address: [address] [address]
--- OUTSIDE RECORDS SUMMARY | 2023-09-19 03:02 | XMS_ITS | Continuity of Care Document ---
Author Name Unknown Organization [facility] ter Address [address] [place] [address]- Care Team Providers Care Molasses Coloring Operator Name Role Phone Deidre Moses NP Primary Care Physician [place] [facility] [place] Date(s): 05/10/21 - 05/12/[address] [address] Discharge Disposition: A-D/C Home Attending Physician: Elizabeth Fontanez MD Admitting Physician: Elizabeth Fontanez MD Referring Physician: Not on Staff, Referring [...] Anxiety,05/12/21 18:23:00 EDT, Route to Pharmacy Electronically, [facility]/pharmacy #[id number], 148, cm, 05/12/21 16:49:00 EDT, Height, 66, kg, 05/10/21 21:34:00 EDT, Dry... Start Date: 05/12/21 Status: Ordered KlonoPIN 0.5 mg oral tablet 0.5 tablet = 0.25 mg, By Mouth, Daily, PRN Anxiety, 0 Refills, Maintenance, 12/30/20 17:08:00 EDT, Tablet, Partial fill upon patient request if the prescription is for a schedule II opioid drug. Start Date: 12/30/20 Status: Ordered Multivitamins By Mouth, Daily, 0 Refills, Maintenance, 08/24/18 12:32:54 EST Start Date: 08/24/18 Status: Ordered Prilosec OTC = 20 mg, By Mouth, Daily, 0 Refills, Maintenance, 12/30/20 12:31:00 EDT, Partial fill upon patient request if the prescription is for a schedule II opioid drug. Start Date: 12/30/20 Status: Ordered promethazine 25 mg rectal suppository 1 supp = 25 mg, Rectally, Every 6 hours, # 12 supp, 0 Refills, Maintenance, 12/30/20 22:20:00 EDT, Suppository, [facility]/pharmacy #[id number], Partial fill upon patient request if the prescription is for a schedule II opioid drug., 149, cm, 12/30/20 12:25:00 EDT... Start Date: 12/30/20 Status: Ordered Reglan 10 mg oral tablet 1 tablet = 10 mg, By Mouth, 3 times a day before meals and bedtime, 0 Refills, Maintenance, 04/02/19 7:57:51 EDT Start Date: 04/02/19 Status: Ordered Zantac 0 Refills, Maintenance, 04/02/19 7:57:55 EDT Start Date: 04/02/19 Status: Ordered Zofran 4 mg oral tablet 1 tablet = 4 mg, By Mouth, Every 8 hours, # 12 tablet, 0 Refills, Maintenance, 12/30/20 22:22:00 EDT, Tablet, [facility]/pharmacy #[id number], Partial fill upon patient [...] Range]: 1 2 3 Height 148 cm (05/12/21 4:00 PM) 148 cm (05/12/21 8:00 AM) 148 cm (05/12/21 12:00 AM) Weight 66 kg (05/10/21 9:01 PM) Oxygen Saturation [94-100 %] 100 % (05/12/21 4:00 PM) 100 % (05/12/21 8:00 AM) 95 % (05/12/21 12:00 AM) Pulse Rate [55-90 bpm] 72 bpm (05/12/21 4:00 PM) 78 bpm (05/12/21 8:00 AM) 72 bpm (05/12/21 12:00 AM) Body Mass Index [18.5-24.99] 30.13 *>HHI* (05/10/21 9:01 PM) Blood Pressure [90-138/55-84 mm Hg] 104/64mm Hg (05/12/21 4:00 PM) 90/67mm Hg (05/12/21 8:00 AM) 101/58mm Hg (05/12/21 12:00 AM) Respiratory Rate [16-30 br/min] 18 br/min (05/12/21 4:00 PM) 18 br/min (05/12/21 8:00 AM) 18 br/min (05/12/21 12:00 AM) Temperature [96.8-100.4 DegF] 98.3 DegF (05/12/21 4:00 PM) 98.3 DegF (05/12/21 8:00 AM) 98.1 DegF (05/12/21 12:00 AM) Mode of Delivery (Oxygen) Room air (05/12/21 4:00 PM) Room air (05/12/21 8:00 AM) Room air (05/12/21 12:00 AM) Blood pressure sites Arm, right (05/12/21 4:00 PM) Arm, left (05/12/21 12:00 AM) Arm, left (05/11/21 8:00 PM) Temperature Route Oral (05/12/21 4:00 PM) Oral (05/12/21 8:00 AM) Oral (05/12/21 12:00 AM) Dry Weight 66 kg (05/10/21 9:01 PM) Weight Obtained Via Patient/family state d (05/10/21 9:01 PM) Dry Weight Obtained Via Patient/family s tated (05/10/21 9:01 PM) Social History Social History Type Response Smoking Status Never smoker entered on: 12/21/13 Sex
--- OUTSIDE RECORDS SUMMARY | 2023-09-19 03:02 | XMS_ITS | Continuity of Care Document ---
Author Name Unknown Organization [facility] Leif Jamison nIntuitive User [facility] Address [address] [place] [address], [address] [place] [address]- Care Team Providers Care Guinea Pig Breeder Name Role Phone Aurelia SWEENEY, Deidre Primary Care Physician [place] [facility] [place] 07/25[place]21 - 08/24/21 [facility] Leif BonnerIntuitive User [facility] [address] [facility] [place] [address]- Allergies, Adverse Reactions, Alerts No Known Medication [...] 0 Refills, Maintenance, 08/14/21 10:49:00 EST, Tablet, [facility]/pharmacy #[id number], Partial fill upon patient request if the [...] 08/14/21 10:49:00 EST, Route to Pharmacy Electronically, [facility]/pharmacy #[id number], 148, cm, 07/26/21 9:02:00 EST, Height, 64.7, kg, 07/23/21 18:44:00 EST, Dry Weight Start Date: 08/14/21 Status: Ordered Vivitrol 380 mg intramuscular injection, extended release = 380 mg, Intramuscular, Every 28 days, # 1 each, 0 Refills, Maintenance, 08/19/21 12:39:00 EST, [facility], Partial fill upon [...]
--- OUTSIDE RECORDS SUMMARY | 2023-09-19 03:02 | XMS_ITS | Continuity of Care Document ---
Author Name Unknown Organization [facility] Leifelsie bell27 bards Address [address] [place] [address], [address] [place] [address]- Care Team Providers Care Gopherman Name Role Phone Deidre Moses NP Primary Care Physician [phone] [place] [facility] [place](s): 06/10/21 - 06/17/21 [facility] [place] [employer] [facility] [address] [facility] [place], [place] [address] Attending Physician: Gaetaon LISA [OB], Li Moody Allergies, Adverse Reactions, [...] Anxiety,05/12/21 18:23:00 EDT, Route to Pharmacy Electronically, [facility]/pharmacy #[id number], 148, cm, 05/12/21 16:49:00 EDT, Height, 66, kg, 05/10/21 21:34:00 EDT, Dry... Start Date: 05/12/21 Status: Ordered FLUoxetine 20 mg oral capsule 20 mg, 1, capsule, By Mouth, Daily, # 30 capsule, Refills 0, Tot. Refills 0, Maintenance, 05/16/21 16:50:00 EDT, Route to Pharmacy Electronically, [facility]/pharmacy #[id number], Partial fill upon patient request if the [...] 06/10/22 17:04:00 EDT, 06/15/21 16:54:00 EDT, Tablet, [facility]/pharmacy #[id number], Partial fill upon patient request [...] 06/10/21 17:03:00 EDT, Route to Pharmacy Electronically, [facility]/pharmacy #[id number], Partial fill upon patient request if the prescription is for a schedule II... Start Date: 06/10/21 Status: Ordered Zofran 4 mg oral tablet 1 tablet = 4 mg, By Mouth, Every 8 hours, # 12 tablet, 0 Refills, Maintenance, 12/30/20 22:22:00 EDT, Tablet, [facility]/pharmacy #[id number], Partial fill upon patient request [...] oldest [Reference Range]: 1 Height 148 cm (06/10/21 4:46 PM) Weight 64.17 kg (06/10/21 4:46 PM) Body Mass Index [18.5-24.99] 29.3 *H* (06/10/21 4:46 PM) Blood Pressure [90-138/55-84 mm Hg] 120/ 69mm Hg (06/10/21 4:46 PM) Blood pressure sites Arm, right (06/10/21 4:46 PM) Weight Obtained Via Standing scale (06/10/21 4:46 PM) Social History Social History Type Response Smoking Status Never smoker entered on: 12/21/13 Sex
--- OUTSIDE RECORDS SUMMARY | 2023-09-19 03:02 | XMS_ITS | Continuity of Care Document ---
Author Name Unknown Organization [facility]if Jamison [employer] [facility] Address [address] [place] [address], [address] [address]- Care Team Providers Care Brake Lining Maker Name Role Phone Deider Moses NP Primary Care Physician Encounter [facility] Date(s): 03/05/22 - 04/04/22 [facility] Leif Bonner's [facility] [address] [facility] [place], [place] [address] Allergies, Adverse Reactions, Alerts No Known [...] 08/14/21 10:49:00 EST, Tablet, [facility]/pharmacy #[id number], Partial fill upon patient request if the [...] tablet, Refills 0, Route to Pharmacy Electronically, [facility], 148, cm, 07/26/21 9:02:00 EST, Height, 64.7, [...]
--- OUTSIDE RECORDS SUMMARY | 2023-09-19 03:02 | XMS_ITS | Continuity of Care Document ---
Author Name Unknown Organization [facility] Leif Jamison [employer] [facility] Address [address] [place] [address], [address] [place] [address]- Care Team Providers Care Talent Acquisition Sourcer Name Role Phone Deidre Moses NP Primary Care Physician [phone] En[place] [facility] [place] Date(s): 05/29/21 - 06/28/21 [facility] [place] [employer] [facility] [address] [facility] [place], [place] [address] Allergies, Adverse Reactions, Alerts No Known Medication [...] Anxiety,05/12/21 18:23:00 EDT, Route to Pharmacy Electronically, [facility]/pharmacy #1950, 148, cm, 05/12/21 16:49:00 EDT, Height, 66, kg, 05/10/21 21:34:00 EDT, Dry... Start Date: 05/12/21 Status: Ordered FLUoxetine 20 mg oral capsule 20 mg, 1, capsule, By Mouth, Daily, # 30 capsule, Refills 0, Tot. Refills 0, Maintenance, 05/16/21 16:50:00 EDT, Route to Pharmacy Electronically, [facility]/pharmacy #[id number], Partial fill upon patient request if the [...] 06/10/22 17:04:00 EDT, 06/15/21 16:54:00 EDT, Tablet, [facility]/pharmacy #[id number], Partial fill upon patient request [...] 06/10/21 17:03:00 EDT, Route to Pharmacy Electronically, [facility]/pharmacy #[id number], Partial fill upon patient request if the prescription is for a schedule II... Start Date: 06/10/21 Status: Ordered Zofran 4 mg oral tablet 1 tablet = 4 mg, By Mouth, Every 8 hours, # 12 tablet, 0 Refills, Maintenance, 12/30/20 22:22:00 EDT, Tablet, [facility]/pharmacy #[id number], Partial fill upon patient request [...]
--- NOTE | 2023-09-19 03:07 | ED.PSYCH ---
HPI - Psych General Chief Complaint: Psychiatric Symptoms Stated Complaint: Crisis Time Seen by Provider: 09/19/23 02:46 Source: patient Mode of arrival: ambulatory Limitations: no limitations History of Present Illness HPI Narrative: 27 yo female G5 unsure P status hx of mental health issues notes she has been ill with vomiting etc since and LMP was end of June. She is not on prenatals and does not want to keep this though [facility] She is here stating she need mental help and needs to talk to the CARE team and is in benzo withdrawal. complaint: feels depressed and anxiety Onset (ago): week(s) History of same: Yes Relieving factors: none Exacerbating factors: other Context: not taking psychiatric medications and significant life stressor Associated psychiatric symptoms: depression Associated symptoms: denies other symptoms Treatments prior to arrival: none Related Data Home Medications Medication Instructions Recorded Confirmed cetirizine 10 mg tablet (Zyrtec) 10 mg PO DAILY 06/06/20 01/30/22 diphenhydramine HCl 50 mg capsule 50 mg PO BEDTIME PRN Sleep 06/06/20 01/30/22 omeprazole 20 mg capsule,delayed 20 mg PO BID 06/06/20 01/30/22 release trazodone 50 mg tablet 50 mg PO BEDTIME 06/06/20 01/30/22 bupropion HCl 300 mg 24 hr tablet, 1 tab PO DAILY 12/06/21 01/30/22 extended release naltrexone microspheres 380 mg 4 ml IM Q4W 12/06/21 01/30/22 intramuscular suspension,extended release (Vivitrol) norethindrone 1 mg-ethinyl 1 tab PO DAILY 12/06/21 01/30/22 estradiol 20 mcg (21)-iron 75 mg (7) tablet (09/26 (28)) sertraline 100 mg tablet 150 mg PO DAILY 12/06/21 01/30/22 buspirone 10 mg tablet 10 mg PO BID 01/30/22 01/30/22 clonazepam 0.5 mg tablet 1 tab PO DAILY PRN anxiety attack 01/30/22 01/30/22 hydroxyzine HCl 25 mg tablet 1 - 2 tab PO BID PRN anxiety 01/30/22 01/30/22 ibuprofen 600 mg tablet (IBU) 1 tab PO BID PRN pain 01/30/22 01/30/22 ondansetron HCl 4 mg tablet 1 tab PO Q8-12H PRN nausea 01/30/22 01/30/22 Previous Rx's Medication Instructions Recorded albuterol sulfate 90 mcg/actuation 1 inh inhalation Q4-6H PRN 01/31/22 breath activated powder inhaler shortness of breath #1 ea fluticasone furoate 100 1 inh inhalation DAILY #28 ea 01/31/22 mcg-vilanterol 25 mcg/dose inhalation powder (Breo Ellipta) prednisone 20 mg tablet 40 mg (2 x 20 mg) PO DAILY #8 tabs 01/31/22 Allergies Allergy/AdvReac Type Severity Reaction Status Date / Time No Known Allergies Allergy Verified 05/03/21 17:00 [No Known Allergies*] Review of Systems Review of Systems: Constitutional : No Fever, No Chills ENT/Mouth : No Ear Pain, No Nasal Congestion, No sore throat Eyes: No Eye Pain, No Swelling, No Redness Cardiovascular : No Chest Pain, No SOB Respiratory : No Cough, No Sputum, No Dyspnea Gastrointestinal : No Nausea, No Vomiting, No Diarrhea, No Hematochezia, No Melena Genitourinary : No Dysuria, No Urinary Frequency, No Hematuria Musculoskeletal : No Myalgias Skin : No Skin Lesions, No rash Neuro : No Weakness, No Numbness, No Paresthesias, No Dizziness, No Headache Psych : positive Anxiety, positive Depression, no SI/HI Heme/Lymph: No Lymphadenopathy Endocrine : No Polyuria, No Polydipsia All other systems reviewed and are negative PMFSH Past Medical History Attestation statement: The following information was validated with the patient. Onset Date is defined in the Problem List Problems that require an onset date and time if occurred within 24 hrs of arrival to the ED Aortic Dissection and Rupture; Neurologic impairment; Cardiopulmonary Arrest; Endotracheal Intubation; Insertion or Replacement of Mechanical Circulatory Assist Device Medical History Asthma exacerbation Bronchitis Asthma without acute exacerbation Asthma with status asthmaticus Asthma GERD (gastroesophageal reflux disease) Social History Social History Household Members: Significant Other Housing: Apartment Do you presently have visiting nurse or other home services: No Alcohol intake: unknown Patient Tobacco Use Status: Former Tobacco user Substance Use Type: Marijuana Advance Directives: No Advance Directives Information Provided: Yes service: No Current occupational status: employed and unemployed Physical Exam Vital Signs: Vital Signs: Last Vital Signs Temp 98.0 F 09/19/23 00:44 Pulse 65 09/19/23 02:46 Resp 16 09/19/23 02:46 BP 101/65 09/19/23 02:46 Pulse Ox 96 09/19/23 02:46 O2 Del Method Room Air 09/19/23 02:46 BMI result Body Mass Index 20.4 Appearance: Alert. Oriented X3. No acute distress. Eyes: Pupils equal, round and reactive to light. ENT: Pharynx normal. Neck: Normal inspection. Neck supple. CVS: Normal heart rate and rhythm. Pulses normal. Respiratory: No respiratory distress. Breath sounds normal. Abdomen: Soft and nontender. Skin: Skin warm and dry. Normal skin color. Normal skin turgor. Extremities: No lower extremity edema. No calf ttp Neuro: Oriented X 3. No motor deficit. No sensory deficit. CN2-12 intact Course Course Course Narrative: Physician observation started at 318am. Patient placed in physician observation because the patient needed more time for US and CARE team to asses the need for psych admission. At the time observation was started the patient's vitals were stable, patient is alert and oriented, Neuro: nonfocal, CV RRR, Lungs clear Medical Decision Making Medical Decision Making [facility] Narrative: 27 yo female wt PMH of anxiety, asthma states she is in benzo withdrawal but also with LMP in June and doesn't want to keep the clinical exam and VS not consistent with benzo withdrawal last took 4 days ago at this time she is requesting CARE team she is very vague - will obtain labs, UA, US in AM and CARE team consult Differential Diagnosis Differential Diagnoses: The differential diagnosis associated with the presentation includes substance abuse, anxiety, homelessness, Admission/Observation Consideration of admission/observation: Escalation of care including admission/observation considered observe until CARE team sees patient Lab Data [facility] Lab Attestation statement: I reviewed the patient's lab results. 09/19/23 01:07 09/19/23 01:07 Labs: Lab Results 09/19/23 09/19/23 Range/Units 01:07 03:04 WBC 8.5 (4.8-10.8) X10*3/uL RBC 4.19 L (4.20-5.50) X10*6/uL Hgb 12.4 (12.0-16.0) g/dl Hct 35.7 L (37.0-47.0) % MCV 85.2 (80.0-98.0) fL MCH 29.6 (27.0-33.0) pg MCHC 34.7 (31.0-35.0) g/dl RDW 13.1 (11.0-16.0) % Plt Count 243 D (160-400) X10*3/uL MPV 9.4 (9.4-12.3) fL Immature Gran % (Auto) 0.2 (0.0-0.4) % Neut % (Auto) 66.1 (45-73) % Lymph % (Auto) 25.1 (20-40) % Wells % (Auto) 4.8 (2-11) % Eos % (Auto) 3.1 (0-4) % Baso % (Auto) 0.7 (0-2) % Lymph # (Auto) 2.1 (1.2-4.9) X10*3/uL Wells # (Auto) 0.4 (0.1-1.2) X10*3/uL Eos # (Auto) 0.3 (0.0-0.4) X10*3/uL Baso # (Auto) 0.1 (0.0-0.2) X10*3/uL Abs Immat Gran (auto) 0.02 (0.00-0.03) X10*3/uL Absolute Neuts (auto) 5.6 (2.0-8.3) x10*3/uL Absolute Nucleated RBC 0.000 (0.0-0.012) X10*3/uL Nucleated RBC % (auto) 0.0 (0.0-0.2) /100WBC Sodium 139 (135-145) mmol/L Potassium 3.8 (3.3-5.1) mmol/L Chloride 107 (96-108) mmol/L Carbon Dioxide 24 (22-29) mmol/L Anion Gap 12 (12-20) BUN 7 L (9-16) mg/dL Creatinine 0.56 (0.5-1.4) mg/dL Estim Creat Clear Calc 97.4 Estimated GFR > 60 Random Glucose 85 (60-115) mg/dL Calcium 9.2 (8.4-10.2) mg/dL Total Bilirubin 0.4 (0.0-1.0) mg/dL AST 12 (5-31) U/L ALT 8 (0-31) U/L Alkaline Phosphatase 39 (39-117) U/L Total Protein 6.7 (6.5-8.0) g/dL Albumin 4.0 (3.5-5.0) g/dL Beta HCG, Quant 50789 mIU/mL Urine Color Yellow Urine Appearance Cloudy Urine pH 7.5 (5.0-9.0) Ur Specific [place] 1.025 (1.005-1.025) Urine Protein Trace (Neg-Trace) mg/dL Urine Glucose (UA) Negative (Negative) mg/dL Urine Ketones Negative (Negative) mg/dL Urine Blood Negative (Negative) Urine Nitrite Positive H (Negative) Ur Leukocyte Esterase Negative (Negative) Urine RBC 0-2 (0-2) /HPF Urine WBC 0-5 (0-5) /HPF Ur Squamous Epith Cells 6-10 (0-2) /HPF Urine Bacteria 4+ (None Seen) Hyaline Casts 0-2 (0-2) /LPF Urine Opiates Screen Not Detected (Not Detect) Urine Fentanyl Screen Not Detected (Not Detect) Ur Barbiturates Screen Not Detected (Not Detect) Ur Phencyclidine Scrn Not Detected (Not Detect) Ur Amphetamines Screen Not Detected (Not Detect) U Benzodiazepines Scrn Not Detected (Not Detect) Urine Cocaine Screen POSITIVE H (Not Detect) U Marijuana (THC) Screen POSITIVE H (Not Detect) Independent Historian Clinical information obtained from an independent historian. History obtained from or confirmed by: Spouse External Record Review External record reviewed: Inpatient record Social Determinants Patient?s care significantly limited by Social Determinants of Health including: Low income and Problems related to primary support group Discharge Plan Discharge Clinical Impression: Acute anxiety, Cocaine abuse, Acute UTI Patient Disposition: Still a Patient Prescriptions: No Action diphenhydramine HCl 50 mg Capsule 50 mg PO BEDTIME PRN (Reason: Sleep) trazodone 50 mg Tablet 50 mg PO BEDTIME cetirizine [Zyrtec] 10 mg Tablet 10 mg PO DAILY omeprazole 20 mg Capsule,Delayed Release(Dr/Ec) 20 mg PO BID sertraline 100 mg tablet 150 mg PO DAILY norethindrone-e.estradiol-iron [Junel FE 09/26 (28)] 1 mg-20 mcg (21)/75 mg (7) tablet 1 tab PO DAILY bupropion HCl 300 mg tablet extended release 24 hr 1 tab PO DAILY Vivitrol 380 mg suspension,extended rel recon 4 ml IM Q4W ondansetron HCl 4 mg tablet 1 tab PO Q8-12H PRN (Reason: nausea) buspirone 10 mg tablet 10 mg PO BID hydroxyzine HCl 25 mg tablet 1 - 2 tab PO BID PRN (Reason: anxiety) ibuprofen [IBU] 600 mg tablet 1 tab PO BID PRN (Reason: pain) clonazepam 0.5 mg tablet 1 tab PO DAILY PRN (Reason: anxiety attack) albuterol sulfate 90 mcg/actuation aerosol powdr breath activated 1 inh inhalation Q4-6H PRN (Reason: shortness of breath) Qty: 1 0RF Breo Ellipta 100-25 mcg/dose blister with device 1 inh inhalation DAILY Qty: 28 0RF prednisone 20 mg tablet 40 mg PO DAILY Qty: 8 0RF
[2023-09-19 03:20] LABS: Amphetamine Screen Urine Not Detected (Not Detect); Barbiturates, Urine Not Detected (Not Detect); Benzodiazepines Screen Urine Not Detected (Not Detect); Cannabinoid Screen Urine POSITIVE (Not Detect); Cocaine Screen Urine POSITIVE (Not Detect); Fentanyl, urine Not Detected (Not Detect); Opiate Screen Urine Not Detected (Not Detect); Phencyclidine Screen Urine Not Detected (Not Detect)
[2023-09-19 03:59] LABS: Appearance Urine Cloudy; Color Urine Yellow; Glucose Urine UA Negative (Negative); Leukocyte Esterase Urine Negative (Negative); Nitrite Urine Positive (Negative); PH 7.5 (5.0-9.0); Specific Gravity - Urine 1.025 (1.005-1.025); UMIC TRIGGER UA YES; Urine Blood Negative (Negative); Urine Ketones Negative (Negative); Urine Protein Trace mg/dL (Neg-Trace)
[2023-09-19 04:02] LABS: Bacteria Urine 4+ (None Seen); Hyaline Casts Urine 0-2 /LPF (0-2); RBC Urine 0-2 /HPF (0-2); WBC Urine 0-5 /HPF (0-5)
[2023-09-19] MEDS: Nitrofurantoin Monohyd/M-Cryst 100 MG CAPSULE PO (04:31)
--- NOTE | 2023-09-19 11:38 | PC.NURSE ---
patient a&ox3, pt eating breakfast, pt noted to by hypotensive by tech, this nurse repeated BP with manual which was 100/50, pt states she normally has very low BP and is asymptomatic of it. pt seen by recovery operator and denies want for any recovery options pt requesting to see care team to recovery operator. at this time pt denying si/hi.
--- NOTE | 2023-09-19 12:30 | MHC.RECOVRN ---
fountain dispenser met with patient in ED-22H for Addiction Medicine Consult for cocaine use and Benzo withdrawal. Patient sleeping, easily woken to verbal stimuli. She is A+Ox3. Speech is slow, and she appears tired. Denies any s/s of withdrawal except nausea which she attributes to being . She plans to terminate and would like information/resources on this. Patient reports taking prescribed Clonazepam 2mg PO daily, however script ran out and she hasn't taken it in 5 days. She reports feeling not good, some stomach cramps when withdrawing from Benzos. She admits to smoking cocaine ~ $20s worth daily which started approx 1 year ago. Last use was yesterday evening. She also reports a history of heroin abuse- has been in recovery and abstained from any use for ~4 years. She is on Sublicade injections monthly. Last dose 16.07mg on 08/11/[address] Peterson Kurtz. She declines any additional recovery support at this time. She does not plan to stop using cocaine at this time. RN offered to leave community resources in the event she changes her mind, she declined. Patient reports she is more interested in getting assistance with mental health support- will defer to CARE team. Discussed with Lanny Lu APRN.
--- NOTE | 2023-09-19 19:22 | PC.NURSE ---
This RN took over pt care @ 1900 Pt sitting quietly in recliner chair. Bf at bedside. Plan of care ongoing.
--- NOTE | 2023-09-19 19:35 | PC.NURSE ---
Pt reporting nausea. Provider notified, med requested. Pt requesting and given ice water. Plan of care ongoing.
[2023-09-19] MEDS: Ondansetron ODT 4 MG TAB.RAPDIS TRANSLINGU (19:38)
--- NOTE | 2023-09-19 19:41 | PC.NURSE ---
Pt medicated per nov. Pt denies med allergy. Plan of care ongoing.
[2023-09-19] MEDS: clonazePAM 0.5 MG TABLET PO (21:22)
--- NOTE | 2023-09-19 21:55 | MHC.CARE ---
CARE Team made a referral to [facility] on pt's behalf. They asked that we call at 8AM tomorrow to follow up.
== END 2023-09-19 21:37 | disposition home or self-care (01) ==
PROVIDERS: Emergency Medicine; Emergency Provider Emergency Medicine
DX: O99.321 Drug use complicating pregnancy, first trimester (principal); F14.180 Cocaine abuse with cocaine-induced anxiety disorder; F13.10 Sedative, hypnotic or anxiolytic abuse, uncomplicated; O23.41 Unspecified infection of urinary tract in pregnancy, first trimester; B96.20 Unspecified Escherichia coli [E. coli] as the cause of diseases classified elsewhere; N39.0 Urinary tract infection, site not specified; Z3A.11 11 weeks gestation of pregnancy; Z87.891 Personal history of nicotine dependence; Z79.899 Other long term (current) drug therapy
CPT/HCPCS: 36415; 76815; 80053; 80307; 81001; 84702; 85025; 87086; 87088; 87186; 99285; S9485

== ENCOUNTER 2024-08-22 19:17 | Emergency (ER) | payer MEDICAID, SELFPAY ==
[2024-08-22 19:20] VITALS: BP 120/79; PULSE 136; RESP 16; TEMP 36.8; O2SAT 98; BMI 20.7
--- NOTE | 2024-08-22 19:36 | ED.GENADULT ---
HPI - General Adult General Chief complaint: Psychiatric Symptoms Stated complaint: Crisis Related Data Home Medications ?Medication ?Instructions ?Recorded ?Confirmed cetirizine 10 mg tablet (Zyrtec) 10 mg PO DAILY 06/06/20 01/30/22 diphenhydramine HCl 50 mg capsule 50 mg PO BEDTIME PRN Sleep 06/06/20 01/30/22 omeprazole 20 mg capsule,delayed 20 mg PO BID 06/06/20 01/30/22 release trazodone 50 mg tablet 50 mg PO BEDTIME 06/06/20 01/30/22 bupropion HCl 300 mg 24 hr tablet, 1 tab PO DAILY 12/06/21 01/30/22 extended release naltrexone microspheres 380 mg 4 ml IM Q4W 12/06/21 01/30/22 intramuscular suspension,extended release (Vivitrol) norethindrone 1 mg-ethinyl 1 tab PO DAILY 12/06/21 01/30/22 estradiol 20 mcg (21)-iron 75 mg (7) tablet (Junel FE 09/26 (28)) sertraline 100 mg tablet 150 mg PO DAILY 12/06/21 01/30/22 buspirone 10 mg tablet 10 mg PO BID 01/30/22 01/30/22 clonazepam 0.5 mg tablet 1 tab PO DAILY PRN anxiety attack 01/30/22 01/30/22 hydroxyzine HCl 25 mg tablet 1 - 2 tab PO BID PRN anxiety 01/30/22 01/30/22 ibuprofen 600 mg tablet (IBU) 1 tab PO BID PRN pain 01/30/22 01/30/22 ondansetron HCl 4 mg tablet 1 tab PO Q8-12H PRN nausea 01/30/22 01/30/22 Previous Rx's ?Medication ?Instructions ?Recorded albuterol sulfate 90 mcg/actuation 1 inh inhalation Q4-6H PRN 01/31/22 breath activated powder inhaler shortness of breath #1 ea fluticasone furoate 100 1 inh inhalation DAILY #28 ea 01/31/22 mcg-vilanterol 25 mcg/dose inhalation powder (Breo Ellipta) prednisone 20 mg tablet 40 mg (2 x 20 mg) PO DAILY #8 tabs 01/31/22 cefuroxime axetil 250 mg tablet 250 mg PO BID 7 days #14 tabs 09/23/23 Allergies Allergy/AdvReac Type Severity Reaction Status Date / Time No Known Allergies Allergy Verified 08/22/24 19:24 [No Known Allergies*] [facility] Past Medical History Medical History Asthma exacerbation Bronchitis Asthma without acute exacerbation Asthma with status asthmaticus Asthma GERD (gastroesophageal reflux disease) Social History Social History Household Members: Significant Other Housing: Apartment Do you presently have visiting nurse or other home services: No Alcohol intake: unknown Patient Tobacco Use Status: Former Tobacco user Substance Use Type: Marijuana Do you have a plan to hurt others: No Plan service: No Current occupational status: employed and unemployed Physical Exam ED Vital Signs: Vital Signs - 24 hr 08/22/24 19:20 Temperature 98.2 F Pulse Rate 136 H Respiratory Rate 16 Blood Pressure 120/79 Pulse Oximetry 98 Oxygen Delivery Method Room Air BMI result Body Mass Index 20.7 Course Course Course Narrative: This is an RME done by CRISTIAN Powell: Additional HPI, ROS, PE not included below will be deferred to primary provider. 28 year old female presents w/ anxiety, depression and intermittent thoughts of harming self no particular plan. Wants to get into a [facility] program. Needs medical clearance. Reports they told her they have a bed available tonight PE benign Discharge Plan Discharge Prescriptions: No Action diphenhydramine HCl 50 mg Capsule 50 mg PO BEDTIME PRN (Reason: Sleep) trazodone 50 mg Tablet 50 mg PO BEDTIME cetirizine [Zyrtec] 10 mg Tablet 10 mg PO DAILY omeprazole 20 mg Capsule,Delayed Release(Dr/Ec) 20 mg PO BID sertraline 100 mg tablet 150 mg PO DAILY norethindrone-e.estradiol-iron [Junel FE 09/26 (28)] 1 mg-20 mcg (21)/75 mg (7) tablet 1 tab PO DAILY bupropion HCl 300 mg tablet extended release 24 hr 1 tab PO DAILY Vivitrol 380 mg suspension,extended rel recon 4 ml IM Q4W ondansetron HCl 4 mg tablet 1 tab PO Q8-12H PRN (Reason: nausea) buspirone 10 mg tablet 10 mg PO BID hydroxyzine HCl 25 mg tablet 1 - 2 tab PO BID PRN (Reason: anxiety) ibuprofen [IBU] 600 mg tablet 1 tab PO BID PRN (Reason: pain) clonazepam 0.5 mg tablet 1 tab PO DAILY PRN (Reason: anxiety attack) albuterol sulfate 90 mcg/actuation aerosol powdr breath activated 1 inh inhalation Q4-6H PRN (Reason: shortness of breath) Qty: 1 0RF Breo Ellipta 100-25 mcg/dose blister with device 1 inh inhalation DAILY Qty: 28 0RF prednisone 20 mg tablet 40 mg PO DAILY Qty: 8 0RF cefuroxime axetil 250 mg tablet 250 mg PO BID 7 Days Qty: 14 0RF Print Language: Eritrean
[2024-08-22 19:53] LABS: MANUAL DIFF FLAG NO
[2024-08-22 19:54] LABS: Basophils Absolute Auto 0.1 X10*3/uL (0.0-0.2); Basophils Percent Auto 0.6 % (0-2); Eosinophils Percent Auto 0.1 % (0-4); Hematocrit 40.5 % (37.0-47.0); Hemoglobin 14.4 g/dl (12.0-16.0); Imm Gran Abs Auto 0.03 X10*3/uL (0.00-0.03); Imm Gran Pct Auto 0.3 % (0.0-0.4); Lymphocytes Absolute Auto 1.7 X10*3/uL (1.2-4.9); Lymphocytes Percent Auto 15.8 % (20-40); Mean Corpuscular HGB Conc 35.6 g/dl (31.0-35.0); Mean Corpuscular Hemoglobin 30.2 pg (27.0-33.0); Mean Corpuscular Volume 84.9 fL (80.0-98.0); Mean Platelet Volume 9.4 fL (9.4-12.3); Monocytes Absolute Auto 0.7 X10*3/uL (0.1-1.2); Monocytes Percent Auto 6.9 % (2-11); Neutrophils Percent Auto 76.3 % (45-73); Platelet Count 314 X10*3/uL (160-400); Red Blood Count 4.77 X10*6/uL (4.20-5.50); Red Cell Distribution Width 12.5 % (11.0-16.0); White Blood Count 10.5 X10*3/uL (4.8-10.8)
[2024-08-22 19:55] LABS: Appearance Urine Turbid; Color Urine Yellow; Glucose Urine UA Negative (Negative); Leukocyte Esterase Urine Small (1+) (Negative); Nitrite Urine Negative (Negative); Specific Gravity - Urine >= 1.030 (1.005-1.025); UMIC TRIGGER UACC YES; Urine Blood Large (3+) (Negative); Urine Ketones 15 mg/dL (Negative); Urine Protein 30 (1+) mg/dL (Neg-Trace)
[2024-08-22 19:57] LABS: UPreg QC Valid YES; Urine Pregnancy NEGATIVE (NEGATIVE)
[2024-08-22 20:00] VITALS: BP 106/63; PULSE 119; RESP 16; TEMP 36.3; O2SAT 96
[2024-08-22 20:19] LABS: Acetaminophen LAB < 3 mcg/mL (<30); Alanine Aminotransferase 10 U/L (0-31); Albumin Level 4.8 g/dL (3.5-5.0); Alkaline Phosphatase 57 U/L (39-117); Anion Gap 15 (12-20); Aspartate Amino Transferase 21 U/L (5-31); Bilirubin Total 0.6 mg/dL (0.0-1.0); Blood Urea Nitrogen 16 mg/dL (9-16); Calcium 9.3 mg/dL (8.4-10.2); Carbon Dioxide 20 mmol/L (22-29); Chloride 107 mmol/L (96-108); Creatinine Clr Calc Pharmacy 64.9; Estimated Glomerular Filt Rate > 60; Ethanol < 10 mg/dL; Glucose Random 130 mg/dL (60-115); Salicylate < 5.0 mg/dL (15-30); Sodium 138 mmol/L (135-145); Total Protein 7.7 g/dL (6.5-8.0)
--- OUTSIDE RECORDS SUMMARY | 2024-08-22 20:19 | XMS_ITS ---
Author Name [facility] Organization Unknown History of Medication Use Medication Directions Dispensed Refills Start Date End Date Stat No information available. No information available. 05/30/2024 completed
[2024-08-22 20:21] LABS: Bacteria Urine 3+ (None Seen); RBC Urine 0-2 /HPF (0-2); UACC Culture Trigger YES
[2024-08-22 20:37] LABS: Amphetamine Screen Urine Not Detected (Not Detect); Barbiturates, Urine Not Detected (Not Detect); Benzodiazepines Screen Urine Not Detected (Not Detect); Buprenorphine Scr Positive (Not Detect); Cannabinoid Screen Urine POSITIVE (Not Detect); Cocaine Screen Urine POSITIVE (Not Detect); Fentanyl, urine Not Detected (Not Detect); Methadone Screen, Urine Not Detected (Not Detect); Opiate Screen Urine Not Detected (Not Detect); Oxycodone Screen Urine Not Detected (Not Detect); Phencyclidine Screen Urine Not Detected (Not Detect)
[2024-08-22 22:00] VITALS: BP 97/53; PULSE 110; RESP 16; TEMP 36.7; O2SAT 98
--- NOTE | 2024-08-22 22:02 | ED.PSYCH ---
HPI - Psych General Chief Complaint: Psychiatric Symptoms Stated Complaint: Crisis Time Seen by Provider: 08/22/24 20:28 Source: patient Mode of arrival: ambulatory Limitations: no limitations History of Present Illness ED Provider: HPI Narrative: Patient's history of depression anxiety using cocaine last use was about 1400 today feel very depressed no current SI spoken to [facility] plan for inpatient admission Related Data Home Medications ?Medication ?Instructions ?Recorded ?Confirmed cetirizine 10 mg tablet (Zyrtec) 10 mg PO DAILY 06/06/20 01/30/22 diphenhydramine HCl 50 mg capsule 50 mg PO BEDTIME PRN Sleep 06/06/20 01/30/22 omeprazole 20 mg capsule,delayed 20 mg PO BID 06/06/20 01/30/22 release trazodone 50 mg tablet 50 mg PO BEDTIME 06/06/20 01/30/22 bupropion HCl 300 mg 24 hr tablet, 1 tab PO DAILY 12/06/21 01/30/22 extended release naltrexone microspheres 380 mg 4 ml IM Q4W 12/06/21 01/30/22 intramuscular suspension,extended release (Vivitrol) norethindrone 1 mg-ethinyl 1 tab PO DAILY 12/06/21 01/30/22 estradiol 20 mcg (21)-iron 75 mg (7) tablet (Junel 09/26 ()) sertraline 100 mg tablet 150 mg PO DAILY 12/06/21 01/30/22 buspirone 10 mg tablet 10 mg PO BID 01/30/22 01/30/22 clonazepam 0.5 mg tablet 1 tab PO DAILY PRN anxiety attack 01/30/22 01/30/22 hydroxyzine HCl 25 mg tablet 1 - 2 tab PO BID PRN anxiety 01/30/22 01/30/22 ibuprofen 600 mg tablet (IBU) 1 tab PO BID PRN pain 01/30/22 01/30/22 ondansetron HCl 4 mg tablet 1 tab PO Q8-12H PRN nausea 01/30/22 01/30/22 Previous Rx's ?Medication ?Instructions ?Recorded albuterol sulfate 90 mcg/actuation 1 inh inhalation Q4-6H PRN 01/31/22 breath activated powder inhaler shortness of breath #1 ea fluticasone furoate 100 1 inh inhalation DAILY #28 ea 01/31/22 mcg-vilanterol 25 mcg/dose inhalation powder (Breo Ellipta) prednisone 20 mg tablet 40 mg (2 x 20 mg) PO DAILY #8 tabs 01/31/22 cefuroxime axetil 250 mg tablet 250 mg PO BID 7 days #14 tabs 09/23/23 Allergies Allergy/AdvReac Type Severity Reaction Status Date / Time No Known Allergies Allergy Verified 08/22/24 19:24 [No Known Allergies*] Review of Systems Review of Systems: Yes all other systems are reviewed and are negative [facility] Past Medical History Medical History Asthma exacerbation Bronchitis Asthma without acute exacerbation Asthma with status asthmaticus Asthma GERD (gastroesophageal reflux disease) Social History Social History Household Members: Significant Other Housing: Apartment Do you presently have visiting nurse or other home services: No Alcohol intake: unknown Patient Tobacco Use Status: Former Tobacco user Substance Use Type: Marijuana Advance Directives: No Advance Directives Information Provided: Yes Do you have a plan to hurt others: No Plan service: No Current occupational status: employed and unemployed Physical Exam Vital Signs: Vital Signs: Last Vital Signs Temp 98.2 F 08/23/24 00:00 Pulse 100 08/23/24 00:00 Resp 16 08/23/24 00:00 BP 104/53 L 08/23/24 00:00 Pulse Ox 99 08/23/24 00:00 O2 Del Method Room Air 08/23/24 00:00 BMI result Body Mass Index 20.7 Appearance: Alert. Oriented X3. No acute distress. Eyes: PERRLA, No Nystagmus ENT: Pharynx normal. Oral Mucosa moist Neck: Normal inspection. Neck supple. CVS: Normal heart rate and rhythm. Pulses normal. Respiratory: No respiratory distress. Equal air entry bilateral, no wheezing/rales/rhonchi Abdomen: Soft and nontender. Bowel sounds are present, no mass palpable, no CVA tenderness Skin: Skin warm and dry. Normal skin color. Normal skin turgor. Extremities: No lower extremity edema. No calf tenderness psych: Anxious denies any SI or HI Neuro: Oriented X 3. No motor deficit. No sensory deficit.No cerebellar signs , cranial nerves II-XII intact Medications Administered Discontinued Medications Generic Name Dose Route Start Last Admin Trade Name Dixie PRN Reason Stop Dose Admin Lorazepam 1 mg 08/22/24 22:01 08/22/24 22:32 Lorazepam 1 Mg Tablet PO 08/22/24 22:02 1 mg ONCE ONE Administration Medical Decision Making Medical Decision Making [facility] Narrative: Patient with substance abuse with depression seen outpatient [facility] will get care team evaluation Lab Data [facility] Lab Attestation statement: I reviewed the patient's lab results. 08/22/24 19:51 08/22/24 19:51 Labs: Lab Results 08/22/24 Range/Units 19:51 WBC 10.5 (4.8-10.8) X10*3/uL RBC 4.77 (4.20-5.50) X10*6/uL Hgb 14.4 (12.0-16.0) g/dl Hct 40.5 (37.0-47.0) % MCV 84.9 (80.0-98.0) fL MCH 30.2 (27.0-33.0) pg MCHC 35.6 H (31.0-35.0) g/dl RDW 12.5 (11.0-16.0) % Plt Count 314 D (160-400) X10*3/uL MPV 9.4 (9.4-12.3) fL Immature Gran % (Auto) 0.3 (0.0-0.4) % Neut % (Auto) 76.3 H (45-73) % Lymph % (Auto) 15.8 L (20-40) % Alexander % (Auto) 6.9 (2-11) % Eos % (Auto) 0.1 (0-4) % Baso % (Auto) 0.6 (0-2) % Lymph # (Auto) 1.7 (1.2-4.9) X10*3/uL Alexander # (Auto) 0.7 (0.1-1.2) X10*3/uL Eos # (Auto) 0.0 (0.0-0.4) X10*3/uL Baso # (Auto) 0.1 (0.0-0.2) X10*3/uL Abs Immat Gran (auto) 0.03 (0.00-0.03) X10*3/uL Absolute Neuts (auto) 8.0 (2.0-8.3) x10*3/uL Absolute Nucleated RBC 0.000 (0.0-0.012) X10*3/uL Nucleated RBC % (auto) 0.0 (0.0-0.2) /100WBC Sodium 138 (135-145) mmol/L Potassium 4.0 (3.3-5.1) mmol/L Chloride 107 (96-108) mmol/L Carbon Dioxide 20 L (22-29) mmol/L Anion Gap 15 (12-20) BUN 16 (9-16) mg/dL Creatinine 0.88 (0.5-1.4) mg/dL Estim Creat Clear Calc 64.9 Estimated GFR > 60 Random Glucose 130 H (60-115) mg/dL Calcium 9.3 (8.4-10.2) mg/dL Magnesium 2.0 (1.6-2.6) mg/dL Total Bilirubin 0.6 (0.0-1.0) mg/dL AST 21 (5-31) U/L ALT 10 (0-31) U/L Alkaline Phosphatase 57 (39-117) U/L Total Protein 7.7 (6.5-8.0) g/dL Albumin 4.8 (3.5-5.0) g/dL Urine Color Yellow Urine Appearance Turbid Urine pH 6.0 (5.0-9.0) Ur Specific [place] >= 1.030 H (1.005-1.025) Urine Protein 30 (1+) H (Neg-Trace) mg/dL Urine Glucose (UA) Negative (Negative) mg/dL Urine Ketones 15 (Negative) mg/dL Urine Blood Large (3+) H (Negative) Urine Nitrite Negative (Negative) Ur Leukocyte Esterase Small (1+) H (Negative) Urine RBC 0-2 (0-2) /HPF Urine WBC 6-10 (0-5) /HPF Ur Squamous Epith Cells 11-20 (0-2) /HPF Urine Bacteria 3+ (None Seen) Hyaline Casts 3-5 (0-2) /LPF Urine Test NEGATIVE (NEGATIVE) Salicylates < 5.0 L (15-30) mg/dL Urine Opiates Screen Not Detected (Not Detect) Ur Buprenorphine Scrn Positive H (Not Detect) ng/mL Ur Oxycodone Screen Not Detected (Not Detect) ng/mL Urine Methadone Screen Not Detected (Not Detect) ng/mL Urine Fentanyl Screen Not Detected (Not Detect) Acetaminophen < 3 (<30) mcg/mL Ur Barbiturates Screen Not Detected (Not Detect) Ur Phencyclidine Scrn Not Detected (Not Detect) Ur Amphetamines Screen Not Detected (Not Detect) U Benzodiazepines Scrn Not Detected (Not Detect) Urine Cocaine Screen POSITIVE H (Not Detect) U Marijuana (THC) Screen POSITIVE H (Not Detect) Ethyl Alcohol < 10 mg/dL Discharge Plan Discharge Clinical Impression: Depression, Cocaine abuse Patient Disposition: Still a Patient Prescriptions: No Action diphenhydramine HCl 50 mg Capsule 50 mg PO BEDTIME PRN (Reason: Sleep) trazodone 50 mg Tablet 50 mg PO BEDTIME cetirizine [Zyrtec] 10 mg Tablet 10 mg PO DAILY omeprazole 20 mg Capsule,Delayed Release(Dr/Ec) 20 mg PO BID sertraline 100 mg tablet 150 mg PO DAILY norethindrone-e.estradiol-iron [Junel FE 09/26 ()] 1 mg-20 mcg (21)/75 mg (7) tablet 1 tab PO DAILY bupropion HCl 300 mg tablet extended release 24 hr 1 tab PO DAILY Vivitrol 380 mg suspension,extended rel recon 4 ml IM Q4W ondansetron HCl 4 mg tablet 1 tab PO Q8-12H PRN (Reason: nausea) buspirone 10 mg tablet 10 mg PO BID hydroxyzine HCl 25 mg tablet 1 - 2 tab PO BID PRN (Reason: anxiety) ibuprofen [IBU] 600 mg tablet 1 tab PO BID PRN (Reason: pain) clonazepam 0.5 mg tablet 1 tab PO DAILY PRN (Reason: anxiety attack) albuterol sulfate 90 mcg/actuation aerosol powdr breath activated 1 inh inhalation Q4-6H PRN (Reason: shortness of breath) Qty: 1 0RF Breo Ellipta 100-25 mcg/dose blister with device 1 inh inhalation DAILY Qty: 28 0RF prednisone 20 mg tablet 40 mg PO DAILY Qty: 8 0RF cefuroxime axetil 250 mg tablet 250 mg PO BID 7 Days Qty: 14 0RF Print Language: Telugu
[2024-08-22] MEDS: LORazepam 1 MG TABLET PO (22:32)
[2024-08-23] VITALS: BP 104/53; PULSE 100; RESP 16; TEMP 36.8; O2SAT 99
--- NOTE | 2024-08-23 03:48 | PC.NURSE ---
pt resting in stretcher, no acute distress noted, awaiting care team.
[2024-08-23 04:40] VITALS: BP 98/58; PULSE 69; RESP 16; TEMP 36.3; O2SAT 96
[2024-08-23 06:40] VITALS: BP 98/57; PULSE 61; RESP 16; TEMP 36.8; O2SAT 97
--- NOTE | 2024-08-23 08:24 | PC.NURSE ---
patient resting quietly, has bedside sitter. resp even and unlabored. ate breakfast. plan of care on going
--- NOTE | 2024-08-23 08:58 | MHC.CARE ---
Pt will be an [facility] bedsearch.
--- NOTE | 2024-08-23 09:17 | MHC.CARE ---
[facility] Referral faxed to [facility]
--- NOTE | 2024-08-23 09:22 | MHC.CARE ---
Referral has been activated with [facility]
--- NOTE | 2024-08-23 09:30 | MHC.RECOVRN ---
Attempted to meet with pt to discuss outpatient recovery resources after pt met with CARE Team and is an [facility] bedsearch. Pt declined resources and discussion with t/w, states I already have a folder full of everything I need and I have a pipe recovery specialist. Pt denies questions or concerns, encouraged to notify RN if pt changes her mind and would like to discuss addiction/recovery.
[2024-08-23 11:29] VITALS: BP 107/57; PULSE 87; RESP 16; TEMP 36.8; O2SAT 96
[2024-08-23 12:01] VITALS: BP 107/57; PULSE 87; RESP 16; TEMP 36.8; O2SAT 96
--- NOTE | 2024-08-23 12:08 | PC.NURSE ---
patient ambulated off of unit with steady gait
== END 2024-08-23 12:08 | disposition home or self-care (01) ==
PROVIDERS: Physician Assistant; Emergency Provider Emergency Medicine Emergency Medical Services
DX: F33.1 Major depressive disorder, recurrent, moderate (principal); F41.9 Anxiety disorder, unspecified; Z87.891 Personal history of nicotine dependence; F14.10 Cocaine abuse, uncomplicated; Z51.81 Encounter for therapeutic drug level monitoring; Z79.899 Other long term (current) drug therapy
CPT/HCPCS: 36415; 80053; 80143; 80179; 80307; 81001; 81025; 83735; 85025; 87086; 99285